=== PATIENT | male | born 1945 | race Caucasian/White ===

== ENCOUNTER 2020-05-30 18:22 | Emergency (ER) | payer MEDICARE, OTHER, SELFPAY ==
--- NOTE | 2020-05-30 | CT_ITS ---
EXAMINATION: CT ABDOMEN AND PELVIS WITHOUT CONTRAST CLINICAL INFORMATION: Right flank pain and hematuria, recent ureteral stent. COMPARISON: CT abdomen and pelvis 05/23/2020 and 04/20/2019. TECHNIQUE: Multidetector volumetric imaging was performed from the superior aspect of the liver through the pubic symphysis. Sagittal and coronal reformatted images were obtained on the technologist's workstation. This CT examination was performed using dose optimization techniques as appropriate, variously including the following: *Automated exposure control. *Adjustment of mA and/or kV according to patient size (this includes techniques or standardized protocols for targeted exams where dose is matched to indication/reason for exam; i.e. extremities or head). *Use of iterative reconstruction technique. DLP: 864 mGy-cm FINDINGS: LUNG BASES: Again seen is a small right pleural effusion unchanged when compared to 05/23/2020. Minimal bibasilar atelectasis is seen. LIVER, GALLBLADDER, AND BILIARY TREE: The liver is normal in size, shape, and attenuation. No focal hepatic lesion or biliary ductal dilatation is present. Again seen are multiple gallstones. There is a single calcification seen in what appears to be a right hepatic duct. However, on the March 2019 CT scan, this is seen adjacent to the hepatic artery and, therefore, could represent some atherosclerotic calcification. PANCREAS: Unremarkable. SPLEEN: Unremarkable. ADRENAL GLANDS: Unremarkable. KIDNEYS AND URETERS: Right: An internally dwelling double-J ureteral stent is present in the right some small intrarenal calcifications are seen at the superior aspect of the stent (series 3 image 29). The obstructing proximal ureteral stone is no longer present and the hydronephrosis has resolved. Left: Nonobstructing left intrarenal calculus is present measuring 9 x 5 mm. No other calculi are seen. No hydronephrosis or renal masses are detected. BLADDER: Unremarkable. GASTROINTESTINAL TRACT: Diverticular changes are present in the left colon without evidence of diverticulitis. The small and large bowel are unremarkable. The appendix is unremarkable. ABDOMINAL WALL: A left inguinal hernia is present containing only fat. LYMPH NODES: No retroperitoneal lymphadenopathy. VASCULAR: Calcific atherosclerotic changes present in the aorta and iliofemoral vessels. PELVIC VISCERA: Again noted are postsurgical changes in the prostate bed with iliac and pelvic side-wall surgical clips. OSSEOUS STRUCTURES: Unremarkable. IMPRESSION: 1. Patient has right internally dwelling stent status post stone removal. Hydronephrosis has resolved. Some small residual intrarenal calcifications present on the right. 2. Nonobstructing left intrarenal calculi. 3. Incidental note made of cholelithiasis, colonic diverticulosis and postsurgical changes in prostate bed.
--- NOTE | 2020-05-30 | US_ITS ---
EXAMINATION: US LOWER EXTREMITY VENOUS, LEFT CLINICAL INFORMATION: Edema COMPARISON: None. TECHNIQUE: Doppler spectral analysis and color flow Doppler imaging was performed of the left lower extremity. Compression and augmentation maneuvers were performed. FINDINGS: Lower extremity venous ultrasound demonstrates no evidence of DVT. The common femoral, femoral, popliteal and calf veins were well identified and normal. They demonstrate normal compressibility and color fill-in. There is edema in the subcutaneous tissues of the calf. IMPRESSION: No evidence for a lower extremity deep vein thrombosis.
[2020-05-30 18:40] VITALS: BP 132/63; PULSE 60; RESP 18; TEMP 36.4; BMI 68.0
--- NOTE | 2020-05-30 19:00 | PC.NURSE ---
PATIENT JUST ADMITTED TO ER, HERE DO TO BLOOD IN HIS URINE FOLLOWING A STENT PLACEMENT. TOOK OVER CARE FROM MICHEL Baird RN. HE IS CURRENTLY AT [facility]
[2020-05-30 19:17] VITALS: BP 132/63; PULSE 59; RESP 15; O2SAT 98
--- NOTE | 2020-05-30 19:20 | ED.MALEGU ---
HPI - Male Genitourinary General Chief complaint: Urogenital-Male Stated complaint: blood in urine Time Seen by Provider: 05/30/20 18:27 Source: patient Mode of arrival: ambulatory History of Present Illness HPI Narrative: patient with 2 complaints. Patient states has been noticing blood in urine for the past several days. No fevers or chills. No flank pain. However states this week did have a urinary stent placed for previous kidney stone. No fevers no chills no nausea no vomiting. Patient also had a left leg that is swollen patient has gone to cardiology and infectious disease however Did get an ultrasound that was negative but it continues to swell. No shortness of breath no chest pain. No fevers or chills. States he is supposed to be on Lasix however stop taking it Onset (ago): day(s) Severity: mild Severity scale (1-10): 4 Related Data Home Medications Medication Instructions Recorded Confirmed amiodarone 200 mg PO BID 05/30/20 05/30/20 atorvastatin 1 tab PO DAILY 05/30/20 05/30/20 carvedilol 12.5 mg PO BID 05/30/20 05/30/20 furosemide 1 tab PO DAILY 05/30/20 05/30/20 gabapentin 300 mg PO BEDTIME 05/30/20 05/30/20 melatonin 10 mg PO BEDTIME PRN 05/30/20 05/30/20 rivaroxaban [Xarelto] 1 tab PO DAILY 05/30/20 05/30/20 Allergies Allergy/AdvReac Type Severity Reaction Status Date / Time lisinopril [LISINOPRIL] Allergy Severe SWELLING/EDEMA,MASSIVE, Verified 05/30/20 22:44 facial edema Review of Systems Review of Systems: Constitutional : No Weight loss, No Fever, No Chills, No Night Sweats, No Fatigue, No Malaise ENT/Mouth : No Hearing loss, No Ear Pain, No Nasal Congestion, No Sinus Pain, No Hoarseness, No sore throat, No Rhinorrhea, No Swallowing Difficulty Eyes: No Eye Pain, No Swelling, No Redness, No Foreign Body, No Discharge, No Vision Changes Cardiovascular : No Chest Pain, No SOB, No Dyspnea on Exertion, No Orthopnea, positive leg Edema, No Palpitations Respiratory : No Cough, No Sputum, No Wheezing, No Smoke Exposure, No Dyspnea Gastrointestinal : No Nausea, No Vomiting, No Diarrhea, No Constipation, No abdominal Pain, No Hematochezia, No Melena Genitourinary : no irregular bleeding, No Dysuria, No Urinary Frequency, No Hematuria, No Urinary Incontinence, No Urgency, No Flank Pain, No Urinary Flow Changes, No Hesitancy Musculoskeletal : No joint pain, No Myalgias, right flank tenderness Skin : No Skin Lesions, No rash Neuro : No Weakness, No Numbness, No Paresthesias, No Loss of Consciousness, No Dizziness, No Headache Psych : No Anxiety/Panic, No Depression, No SI/HI/AH/VH, No Social Issues, Heme/Lymph: No Bruising, No Bleeding,No Lymphadenopathy Endocrine : No Polyuria, No Polydipsia, No Temperature Intolerance [facility] Past Medical History Attestation statement: The following information was validated with the patient. Medical History (Updated 05/31/20 @ 00:00 by Erma Hanley) Cataract CHF (congestive heart failure) Kidney stone Restless legs syndrome Sleep apnea Social History Social History Alcohol intake: never Smoking Status: Unknown if ever smoked Smoked in Last 30 Days: No Use of substances other than those prescribed or required for medical reasons: No Advance Directives: No Advance Directives Information Provided: Yes Physical Exam Vital Signs and I&O and Narrative: Vital Signs and I&O: Vital Signs Temp 97.6 F 05/30/20 18:40 Pulse 52 05/30/20 20:59 Resp 15 05/30/20 20:59 BP 145/76 H 05/30/20 20:59 Pulse Ox 96 05/30/20 20:59 Intake & Output 05/30/20 05/30/20 05/31/20 06:59 18:59 06:59 Weight 203 kg Body Mass Index 68.0 reviewed Const: Other: Appearance: Alert. Oriented X3. No acute distress. Eyes: Pupils equal, round and reactive to light. ENT: Pharynx normal. Neck: Normal inspection. Neck supple. CVS: Normal heart rate and rhythm. Pulses normal. Respiratory: No respiratory distress. Breath sounds normal. Abdomen: Soft and nontender. Skin: Skin warm and dry. Normal skin color. Normal skin turgor. Extremities: bilateral lower extremity edema with left greater than right. Pitting edema. No erythema. No warmth. No laceration Neuro: Oriented X 3. No motor deficit. No sensory deficit. General: cooperative MDM - Male Genitourinary MDM Narrative Medical decision making narrative: 74-year-old male with postsurgical hematuria. CT scan shows no blockages labs and urine show no infection. Patient does have a urology appointment in 3 days advised him to return. Also and bilateral leg edema left greater than right however patient shows no signs of DVT. I discussed with patient in regards to increase his Lasix at home next couple days and follow-up primary care Medical Records Attestation: I reviewed the patient's medical records. Lab Data Attestation: I reviewed the patient's lab results. Result diagrams: 05/30/20 19:33 05/30/20 19:33 Labs: Lab Results 05/30/20 05/30/20 05/30/20 Range/Units 19:33 19:33 19:33 WBC 8.0 (4.8-10.8) X10*3/uL RBC 4.11 L (4.60-5.80) X10*6/uL Hgb 10.8 L (14.0-18.0) g/dl Hct 33.9 L (42-52) % MCV 82.5 (80-98) fL MCH 26.3 L (27.0-33.0) pg MCHC 31.9 (31.0-36.0) g/dl RDW 16.3 H (11.0-16.0) % Plt Count 186 (160-400) X10*3/uL MPV 10.3 (9.4-12.4) fL Immature Gran % (Auto) 1.1 H (0.0-0.4) % Neut % (Auto) 73.3 H (45-73) % Lymph % (Auto) 9.8 L (20-40) % [place] % (Auto) 11.8 H (2-11) % Eos % (Auto) 3.5 (0-4) % Baso % (Auto) 0.5 (0-2) % Neut # (Auto) 5.8 (2.0-8.3) X10*3/uL Lymph # (Auto) 0.8 L (1.2-4.9) X10*3/uL [place] # (Auto) 0.9 (0.1-1.2) X10*3/uL Eos # (Auto) 0.3 (0.0-0.4) X10*3/uL Baso # (Auto) 0.0 (0.0-0.2) X10*3/uL Abs Immat Gran (auto) 0.09 H (0.00-0.03) X10*3/uL Absolute Nucleated RBC 0.000 (0.0-0.012) X10*3/uL Nucleated RBC % (auto) 0.0 (0.0-0.2) /100WBC Hold Blue Top SEE NOTE Sodium (135-145) mmol/L Potassium (3.3-5.1) mmol/l Chloride (96-108) mmol/L Carbon Dioxide (22-29) mmol/L Anion Gap (12-20) BUN (9-16) mg/dL Creatinine (0.5-1.4) mg/dL Estim Creat Clear Calc Estimated GFR Random Glucose (60-115) mg/dL Calcium (8.4-10.2) mg/dL Urine Color BROWN Urine Appearance CLOUDY Urine pH 5.5 (5.0-8.0) Ur Specific [place] 1.020 (1.005-1.025) Urine Protein 2+ H (NEG-TRACE) MG/DL Urine Glucose (UA) NEG (NEG) MG/DL Urine Ketones NEG (NEG) MG/DL Urine Blood 3+ H (NEG) Urine Nitrite NEG (NEG) Ur Leukocyte Esterase TRACE H (NEG) Urine RBC 76-150 H (0) /HPF Urine WBC 5-9 H (0-4) /HPF Ur Squamous Epith Cells NONE /LPF Urine Bacteria TRACE /LPF 05/30/20 Range/Units 19:33 WBC (4.8-10.8) X10*3/uL RBC (4.60-5.80) X10*6/uL Hgb (14.0-18.0) g/dl Hct (42-52) % MCV (80-98) fL MCH (27.0-33.0) pg MCHC (31.0-36.0) g/dl RDW (11.0-16.0) % Plt Count (160-400) X10*3/uL MPV (9.4-12.4) fL Immature Gran % (Auto) (0.0-0.4) % Neut % (Auto) (45-73) % Lymph % (Auto) (20-40) % [place] % (Auto) (2-11) % Eos % (Auto) (0-4) % Baso % (Auto) (0-2) % Neut # (Auto) (2.0-8.3) X10*3/uL Lymph # (Auto) (1.2-4.9) X10*3/uL [place] # (Auto) (0.1-1.2) X10*3/uL Eos # (Auto) (0.0-0.4) X10*3/uL Baso # (Auto) (0.0-0.2) X10*3/uL Abs Immat Gran (auto) (0.00-0.03) X10*3/uL Absolute Nucleated RBC (0.0-0.012) X10*3/uL Nucleated RBC % (auto) (0.0-0.2) /100WBC Hold Blue Top Sodium 140 (135-145) mmol/L Potassium 4.1 (3.3-5.1) mmol/l Chloride 111 H (96-108) mmol/L Carbon Dioxide 23 (22-29) mmol/L Anion Gap 10 L (12-20) BUN 25 H (9-16) mg/dL Creatinine 1.00 (0.5-1.4) mg/dL Estim Creat Clear Calc 112.0 Estimated GFR > 60 Random Glucose 159 H (60-115) mg/dL Calcium 8.3 L (8.4-10.2) mg/dL Urine Color Urine Appearance Urine pH (5.0-8.0) Ur Specific [place] (1.005-1.025) Urine Protein (NEG-TRACE) MG/DL Urine Glucose (UA) (NEG) MG/DL Urine Ketones (NEG) MG/DL Urine Blood (NEG) Urine Nitrite (NEG) Ur Leukocyte Esterase (NEG) Urine RBC (0) /HPF Urine WBC (0-4) /HPF Ur Squamous Epith Cells /LPF Urine Bacteria /LPF Discharge Plan Discharge Clinical Impression: Hematuria, Pedal edema Patient Disposition: Home, Self-Care Instructions: Hematuria (ED), Leg Edema (ED) Additional Instructions: Thank you for visiting the emergency department today. If your symptoms worsen or do not resolve completely please return to the emergency department immediately or call 911. if he have any questions please call your primary care physician increase your Lasix pill, and take 2 tablets every day for 3-5 days and follow up with her primary care doctor for further instructions Prescriptions: No Action furosemide 40 mg tablet 1 tab PO DAILY RF: 0 atorvastatin 80 mg tablet 1 tab PO DAILY RF: 0 carvedilol 12.5 mg Tablet 12.5 mg PO BID RF: 0 amiodarone 200 mg Tablet 200 mg PO BID RF: 0 gabapentin 300 mg Tablet 300 mg PO BEDTIME RF: 0 Xarelto 20 mg tablet 1 tab PO DAILY RF: 0 melatonin 10 mg Tablet 10 mg PO BEDTIME PRN (Reason: Insomnia) RF: 0 Referrals: [facility] [Provider Group] - 2 days Interventions: ED Discharge Assessment Last Done: 05/30/20 23:49 Discharge Date/Time: 05/30/20 23:57
[2020-05-30 19:40] LABS: MANUAL DIFF FLAG NO
[2020-05-30 19:45] LABS: Basophils Percent Auto 0.5 % (0-2); Eosinophils Absolute Auto 0.3 X10*3/uL (0.0-0.4); Eosinophils Percent Auto 3.5 % (0-4); Glucose Urine UA NEG (NEG); Hematocrit 33.9 % (42-52); Hemoglobin 10.8 g/dl (14.0-18.0); Imm Gran Abs Auto 0.09 X10*3/uL (0.00-0.03); Imm Gran Pct Auto 1.1 % (0.0-0.4); Leukocyte Esterase Urine TRACE (NEG); Lymphocytes Absolute Auto 0.8 X10*3/uL (1.2-4.9); Lymphocytes Percent Auto 9.8 % (20-40); Mean Corpuscular HGB Conc 31.9 g/dl (31.0-36.0); Mean Corpuscular Hemoglobin 26.3 pg (27.0-33.0); Mean Corpuscular Volume 82.5 fL (80-98); Mean Platelet Volume 10.3 fL (9.4-12.4); Monocytes Absolute Auto 0.9 X10*3/uL (0.1-1.2); Monocytes Percent Auto 11.8 % (2-11); Neutrophils Absolute Auto 5.8 X10*3/uL (2.0-8.3); Neutrophils Percent Auto 73.3 % (45-73); Nitrite Urine NEG (NEG); PH 5.5 (5.0-8.0); Platelet Count 186 X10*3/uL (160-400); Red Blood Count 4.11 X10*6/uL (4.60-5.80); Red Cell Distribution Width 16.3 % (11.0-16.0); Urine Blood 3+ (NEG); Urine Ketones NEG (NEG); Urine Protein 2+ MG/DL (NEG-TRACE)
[2020-05-30 19:46] LABS: Appearance Urine CLOUDY; Color Urine BROWN
[2020-05-30 20:02] LABS: Bacteria Urine TRACE /LPF
[2020-05-30 20:14] LABS: Anion Gap 10 (12-20); Blood Urea Nitrogen 25 mg/dL (9-16); Calcium 8.3 mg/dL (8.4-10.2); Carbon Dioxide 23 mmol/L (22-29); Chloride 111 mmol/L (96-108); Estimated Glomerular Filt Rate > 60; Glucose Random 159 mg/dL (60-115); Potassium 4.1 mmol/l (3.3-5.1); Sodium 140 mmol/L (135-145)
[2020-05-30 20:59] VITALS: BP 145/76; PULSE 52; RESP 15; O2SAT 96
== END 2020-05-30 23:57 | disposition home or self-care (01) ==
PROVIDERS: Emergency Provider Emergency Medicine
DX: R31.9 Hematuria, unspecified (principal); R60.0 Localized edema; T50.1X6A Underdosing of loop [high-ceiling] diuretics, initial encounter; Y92.019 Unspecified place in single-family (private) house as the place of occurrence of the external cause; I50.9 Heart failure, unspecified
CPT/HCPCS: 36415; 74176; 80048; 81001; 85025; 87086; 93971; 99284

== ENCOUNTER → 2020-06-03 09:51 | Outpatient (BNVA) | payer MEDICARE, OTHER, SELFPAY | PROVIDERS: PCP Internal Medicine; Visit Provider Urology | DX: Z48.816 Encounter for surgical aftercare following surgery on the genitourinary system (principal); E83.59 Other disorders of calcium metabolism; Z87.442 Personal history of urinary calculi | CPT/HCPCS: 52310; 99213 ==

== ENCOUNTER 2020-07-01 11:25 | Emergency (ER) | payer MEDICARE, OTHER, SELFPAY ==
[2020-07-01 11:28] VITALS: BP 129/61; PULSE 63; RESP 16; TEMP 36.6; O2SAT 99; BMI 29.9
--- NOTE | 2020-07-01 12:05 | ED.SKABFB ---
HPI - Skin/Abscess/Foreign Bdy General Chief complaint: Skin/Abscess/Foreign Body Stated complaint: Rash Time Seen by Provider: 07/01/20 12:05 Source: patient Mode of arrival: ambulatory Limitations: no limitations History of Present Illness HPI narrative: LE edema and swelling is chronic has rash that is burning and itching in nature - was scratching it and now notes that his LLE is more red and warm to touch has never been on antibiotics for this MD complaint: rash and discoloration Onset (ago): week(s) (1) Location: LLE Severity: mild Quality: burning and pruritic Pain Consistency: constant Relieving factors: none Exacerbating factors: none Context: other (prior history of edema and suspected leg dermatitis on lasix, has seen PCP, nuclear medical tech, vascular doctor for this) Associated symptoms: denies other symptoms Treatments prior to arrival: none Related Data Home Medications Medication Instructions Recorded Confirmed amiodarone 200 mg PO BID 05/30/20 05/30/20 atorvastatin 1 tab PO DAILY 05/30/20 05/30/20 carvedilol 12.5 mg PO BID 05/30/20 05/30/20 furosemide 1 tab PO DAILY 05/30/20 05/30/20 gabapentin 300 mg PO BEDTIME 05/30/20 05/30/20 melatonin 10 mg PO BEDTIME PRN 05/30/20 05/30/20 rivaroxaban [Xarelto] 1 tab PO DAILY 05/30/20 05/30/20 tramadol 50 mg tablet 50 mg PO Q6H PRN 06/03/20 Previous Rx's Medication Instructions Recorded cephalexin 500 mg PO TID 7 Days #21 cap 07/01/20 Allergies Allergy/AdvReac Type Severity Reaction Status Date / Time lisinopril [LISINOPRIL] Allergy Severe SWELLING/EDEMA,MASSIVE, Verified 05/30/20 22:44 facial edema Review of Systems Review of Systems: Constitutional : No Fever, No Chills ENT/Mouth : No sore throat, No Rhinorrhea Eyes: No Eye Pain, No Swelling, No Redness Cardiovascular : No Chest Pain, No SOB Respiratory : No Cough, No Sputum Gastrointestinal : No Nausea, No Vomiting, No Diarrhea, No abdominal Pain Genitourinary : No Dysuria, No Hematuria Musculoskeletal : No joint pain, No Myalgias, No Joint Swelling Skin : pos Skin Lesions, positive skin rash Neuro : No Weakness, No Numbness, No Headache Psych : No Anxiety, No Depression Heme/Lymph: No Bruising, No Bleeding,No Lymphadenopathy Endocrine : No Polyuria, No Polydipsia All other systems reviewed and are negative [facility] Past Medical History Attestation statement: The following information was validated with the patient. Medical History (Updated 07/01/20 @ 13:15 by Candis Lazar DO) Afib CAD (coronary artery disease) Cataract CHF (congestive heart failure) Kidney stone Restless legs syndrome Sleep apnea Surgical History (Updated 07/01/20 @ 12:16 by Candis Lazar DO) Hx of CABG Social History Social History (Updated 07/01/20 @ 12:16 by Candis Lazar DO) Alcohol intake: never Smoking Status: Former smoker Use of substances other than those prescribed or required for medical reasons: No Advance Directives: No Advance Directives Information Provided: No Physical Exam Vital Signs: Vital Signs: Vital Signs Temp Pulse Resp BP Pulse Ox 07/01/20 11:28 97.8 F 63 16 129/61 99 Body Mass Index 29.9 Appearance: Alert. Oriented X3. No acute distress. Eyes: Pupils equal, round and reactive to light. ENT: Pharynx normal. Neck: Normal inspection. Neck supple. CVS: irregular heart rate and rhythm. Pulses normal. Respiratory: No respiratory distress. Breath sounds normal. Abdomen: Soft and nontender. Skin: Skin warm and dry. Normal skin color. Normal skin turgor. Extremities: pos 1 to 2+ pitting lower extremity edema. shiny mild erythema/no warmth to anterior shetty RLE, LLE excoriated abrasions posterior calf no fluctuance - no drainage, mild erythema around leg with mild warmth no extension or lymphangitis, no sig ttp Neuro: Oriented X 3. No motor deficit. No sensory deficit. Course Course Course Narrative: afebrile, labs stable, no WBC count can be DC home with oral antibiotics on xarelto no c/o bleeding will refer to PCP for elevated INR MDM - Skin/Abscess/Foreign Bdy MDM Narrative Medical decision making narrative: 74 yo male with CHF, CAD s/p CABG, afib on eliquis, chronic LE edema - here with likely chronic venous stasis dermatitis now with mild secondary cellulitis of LLE with systemic symptoms or sign of abscess at this time will obtain basic labs, cultures, give IV zosyn and anticipate referral to wound care center if labs wnl. Lab Data Result diagrams: 07/01/20 12:21 07/01/20 12:21 Labs: Lab Results 07/01/20 07/01/20 07/01/20 Range/Units 12:21 12:21 12:21 WBC 5.9 (4.8-10.8) X10*3/uL RBC 4.66 (4.60-5.80) X10*6/uL Hgb 11.3 L (14.0-18.0) g/dl Hct 36.8 L (42-52) % MCV 79.0 L (80-98) fL MCH 24.2 L (27.0-33.0) pg MCHC 30.7 L (31.0-36.0) g/dl RDW 16.0 (11.0-16.0) % Plt Count 220 (160-400) X10*3/uL MPV 10.5 (9.4-12.4) fL Immature Gran % (Auto) 0.3 (0.0-0.4) % Neut % (Auto) 72.8 (45-73) % Lymph % (Auto) 9.7 L (20-40) % [place] % (Auto) 13.4 H (2-11) % Eos % (Auto) 2.9 (0-4) % Baso % (Auto) 0.9 (0-2) % Lymph # (Auto) 0.6 L (1.2-4.9) X10*3/uL [place] # (Auto) 0.8 (0.1-1.2) X10*3/uL Eos # (Auto) 0.2 (0.0-0.4) X10*3/uL Baso # (Auto) 0.1 (0.0-0.2) X10*3/uL Abs Immat Gran (auto) 0.02 (0.00-0.03) X10*3/uL Absolute Neuts (auto) 4.3 (2.0-8.3) X10*3/uL Absolute Nucleated RBC 0.000 (0.0-0.012) X10*3/uL Nucleated RBC % (auto) 0.0 (0.0-0.2) /100WBC Smear Tech's Comments VERIFIED PT 68.8 H (10.8-13.0) SEC INR 5.7 H* (0.9-1.1) APTT 52.6 H (24.1-38.0) SEC Sodium 138 (135-145) mmol/L Potassium 4.0 (3.3-5.1) mmol/l Chloride 104 (96-108) mmol/L Carbon Dioxide 26 (22-29) mmol/L Anion Gap 12 (12-20) BUN 23 H (9-16) mg/dL Creatinine 1.04 (0.5-1.4) mg/dL Estim Creat Clear Calc 65.5 Estimated GFR > 60 Random Glucose 122 H (60-115) mg/dL Lactic Acid (0.5-2.0) mmol/L Calcium 8.4 (8.4-10.2) mg/dL Magnesium 2.2 (1.6-2.6) mg/dL Total Bilirubin 2.2 H (0.0-1.0) mg/dL Direct Bilirubin 1.1 H (0.0-0.5) mg/dL AST 28 (5-37) U/L ALT 23 (0-40) U/L Alkaline Phosphatase 245 H (39-117) U/L Total Protein 6.2 L (6.5-8.0) g/dL Albumin 3.9 (3.5-5.0) g/dL 07/01/20 Range/Units 12:21 WBC (4.8-10.8) X10*3/uL RBC (4.60-5.80) X10*6/uL Hgb (14.0-18.0) g/dl Hct (42-52) % MCV (80-98) fL MCH (27.0-33.0) pg MCHC (31.0-36.0) g/dl RDW (11.0-16.0) % Plt Count (160-400) X10*3/uL MPV (9.4-12.4) fL Immature Gran % (Auto) (0.0-0.4) % Neut % (Auto) (45-73) % Lymph % (Auto) (20-40) % [place] % (Auto) (2-11) % Eos % (Auto) (0-4) % Baso % (Auto) (0-2) % Lymph # (Auto) (1.2-4.9) X10*3/uL [place] # (Auto) (0.1-1.2) X10*3/uL Eos # (Auto) (0.0-0.4) X10*3/uL Baso # (Auto) (0.0-0.2) X10*3/uL Abs Immat Gran (auto) (0.00-0.03) X10*3/uL Absolute Neuts (auto) (2.0-8.3) X10*3/uL Absolute Nucleated RBC (0.0-0.012) X10*3/uL Nucleated RBC % (auto) (0.0-0.2) /100WBC Smear Tech's Comments PT (10.8-13.0) SEC INR (0.9-1.1) APTT (24.1-38.0) SEC Sodium (135-145) mmol/L Potassium (3.3-5.1) mmol/l Chloride (96-108) mmol/L Carbon Dioxide (22-29) mmol/L Anion Gap (12-20) BUN (9-16) mg/dL Creatinine (0.5-1.4) mg/dL Estim Creat Clear Calc Estimated GFR Random Glucose (60-115) mg/dL Lactic Acid 1.0 (0.5-2.0) mmol/L Calcium (8.4-10.2) mg/dL Magnesium (1.6-2.6) mg/dL Total Bilirubin (0.0-1.0) mg/dL Direct Bilirubin (0.0-0.5) mg/dL AST (5-37) U/L ALT (0-40) U/L Alkaline Phosphatase (39-117) U/L Total Protein (6.5-8.0) g/dL Albumin (3.5-5.0) g/dL Discharge Plan Discharge Clinical Impression: Cellulitis Qualifiers: Site of cellulitis: extremity Site of cellulitis of extremity: lower extremity Laterality: left Qualified Code(s): L03.116 - Cellulitis of left lower limb Venous stasis dermatitis Qualifiers: Laterality: bilateral Qualified Code(s): I87.2 - Venous insufficiency (chronic) (peripheral) Patient Disposition: Home, Self-Care Instructions: Cellulitis (ED), Stasis Dermatitis (ED) Additional Instructions: .EDdc YOUR INR IS ELEVATED LIKELY DUE TO XARELTO YOUR DOCTOR SHOULD MONITOR THIS IT IS HIGHER THAN YOUR BASELINE IT IS 5 TODAY Prescriptions: New cephalexin 500 mg capsule 500 mg PO TID 7 Days Qty: 21 RF: 0 No Action furosemide 40 mg tablet 1 tab PO DAILY RF: 0 atorvastatin 80 mg tablet 1 tab PO DAILY RF: 0 carvedilol 12.5 mg Tablet 12.5 mg PO BID RF: 0 amiodarone 200 mg Tablet 200 mg PO BID RF: 0 gabapentin 300 mg Tablet 300 mg PO BEDTIME RF: 0 Xarelto 20 mg tablet 1 tab PO DAILY RF: 0 melatonin 10 mg Tablet 10 mg PO BEDTIME PRN (Reason: Insomnia) RF: 0 Referrals: Jeb Anthony MD [Physician] - 2 days ([facility]) Naveen Mcconnell [Primary Care Provider] - 2 days
[2020-07-01 12:35] LABS: Basophils Absolute Auto 0.1 X10*3/uL (0.0-0.2); Basophils Percent Auto 0.9 % (0-2); Eosinophils Absolute Auto 0.2 X10*3/uL (0.0-0.4); Eosinophils Percent Auto 2.9 % (0-4); Hematocrit 36.8 % (42-52); Hemoglobin 11.3 g/dl (14.0-18.0); Imm Gran Abs Auto 0.02 X10*3/uL (0.00-0.03); Imm Gran Pct Auto 0.3 % (0.0-0.4); Lymphocytes Absolute Auto 0.6 X10*3/uL (1.2-4.9); Lymphocytes Percent Auto 9.7 % (20-40); MANUAL DIFF FLAG SCAN; Mean Corpuscular HGB Conc 30.7 g/dl (31.0-36.0); Mean Corpuscular Hemoglobin 24.2 pg (27.0-33.0); Mean Platelet Volume 10.5 fL (9.4-12.4); Monocytes Absolute Auto 0.8 X10*3/uL (0.1-1.2); Monocytes Percent Auto 13.4 % (2-11); Neutrophils Absolute Auto 4.3 X10*3/uL (2.0-8.3); Neutrophils Percent Auto 72.8 % (45-73); Platelet Count 220 X10*3/uL (160-400); Red Blood Count 4.66 X10*6/uL (4.60-5.80); SCAN SMEAR FLAG 1; White Blood Count 5.9 X10*3/uL (4.8-10.8)
[2020-07-01] MEDS: Piperacillin Sodium/Tazobactam 3.375 GM in 0.9 % Sodium Chloride 50 ML IV (12:38)
[2020-07-01 12:46] LABS: Partial Thromboplastin Time 52.6 SEC (24.1-38.0)
[2020-07-01 12:50] LABS: Prothrombin Time 68.8 SEC (10.8-13.0)
[2020-07-01 13:01] LABS: SLIDE REVIEW VERIFIED
[2020-07-01 13:08] LABS: Alanine Aminotransferase 23 U/L (0-40); Albumin Level 3.9 g/dL (3.5-5.0); Alkaline Phosphatase 245 U/L (39-117); Anion Gap 12 (12-20); Aspartate Amino Transferase 28 U/L (5-37); Bilirubin Direct 1.1 mg/dL (0.0-0.5); Bilirubin Total 2.2 mg/dL (0.0-1.0); Blood Urea Nitrogen 23 mg/dL (9-16); Calcium 8.4 mg/dL (8.4-10.2); Carbon Dioxide 26 mmol/L (22-29); Chloride 104 mmol/L (96-108); Creatinine Clr Calc Pharmacy 65.5; Estimated Glomerular Filt Rate > 60; Glucose Random 122 mg/dL (60-115); INTERNATIONAL NORM RATIO 5.7 (0.9-1.1); Magnesium 2.2 mg/dL (1.6-2.6); Sodium 138 mmol/L (135-145); Total Protein 6.2 g/dL (6.5-8.0)
== END 2020-07-01 13:27 | disposition home or self-care (01) ==
PROVIDERS: Emergency Provider Emergency Medicine; PCP Internal Medicine
DX: L03.116 Cellulitis of left lower limb (principal); R60.0 Localized edema; I87.2 Venous insufficiency (chronic) (peripheral); R21 Rash and other nonspecific skin eruption; I25.10 Atherosclerotic heart disease of native coronary artery without angina pectoris; I48.91 Unspecified atrial fibrillation; Z79.899 Other long term (current) drug therapy; Z79.01 Long term (current) use of anticoagulants
CPT/HCPCS: 36415; 80048; 80076; 83605; 83735; 85025; 85610; 85730; 87040; 96365; 99284; J2543

== ENCOUNTER 2020-07-03 08:00 | Outpatient (RCR) | payer MEDICARE, OTHER, SELFPAY | END 2020-08-27 15:02 | disposition home or self-care (01) | LOC: HO.WCC 08:00 | PROVIDERS: Visit Provider Surgery | DX: I83.222 Varicose veins of left lower extremity with both ulcer of calf and inflammation (principal); I70.242 Atherosclerosis of native arteries of left leg with ulceration of calf; L97.222 Non-pressure chronic ulcer of left calf with fat layer exposed; I50.9 Heart failure, unspecified; I25.10 Atherosclerotic heart disease of native coronary artery without angina pectoris; L30.8 Other specified dermatitis; Z95.1 Presence of aortocoronary bypass graft | CPT/HCPCS: 11042; 11104; 29580; 88305; 88312; 99203; 99212; 99213 ==

== ENCOUNTER → 2020-07-07 13:39 | Outpatient (BNVA) | payer MEDICARE, OTHER, SELFPAY | PROVIDERS: PCP Internal Medicine; Visit Provider Internal Medicine | DX: I25.10 Atherosclerotic heart disease of native coronary artery without angina pectoris (principal); I25.5 Ischemic cardiomyopathy; I50.22 Chronic systolic (congestive) heart failure; I48.0 Paroxysmal atrial fibrillation; I48.3 Typical atrial flutter; R00.1 Bradycardia, unspecified; G47.33 Obstructive sleep apnea (adult) (pediatric); Z79.01 Long term (current) use of anticoagulants; Z79.899 Other long term (current) drug therapy | CPT/HCPCS: 93005; 99212 ==

== ENCOUNTER 2020-07-20 11:21 | Outpatient (REF) | payer MEDICARE, OTHER, SELFPAY ==
[2020-07-20 12:46] LABS: Anion Gap 11 (12-20); Blood Urea Nitrogen 20 mg/dL (9-16); Calcium 8.9 mg/dL (8.4-10.2); Carbon Dioxide 26 mmol/L (22-29); Chloride 106 mmol/L (96-108); Estimated Glomerular Filt Rate > 60; Glucose Random 125 mg/dL (60-115); Potassium 4.2 mmol/l (3.3-5.1); Sodium 139 mmol/L (135-145)
[2020-07-20 13:26] LABS: B Type Natriuretic Peptide 923 pg/mL (<100)
== END 2020-07-20 11:22 | disposition home or self-care (01) ==
LOC: HO.LAB 11:21
PROVIDERS: PCP Internal Medicine; Visit Provider Internal Medicine
DX: I50.22 Chronic systolic (congestive) heart failure (principal); I25.5 Ischemic cardiomyopathy
CPT/HCPCS: 80048; 83880

== ENCOUNTER 2020-08-05 09:44 | Outpatient (REF) | payer MEDICARE, OTHER, SELFPAY ==
--- NOTE | 2020-08-05 | US_ITS ---
EXAMINATION: COLOR-FLOW DUPLEX IMAGING OF THE LEFT LOWER EXTREMITY ARTERIAL SYSTEM. VELOCITY MEASUREMENTS THROUGHOUT THE LEFT FEMORAL ARTERIES Interventional Radiologist: Sanjay Saavedra M.D., F.S.I.R., F.A.C.R. CLINICAL INFORMATION: This is a 74-year-old male former smoker. Peripheral arterial disease. Chronic ulcer of left calf. LEFT FEMORAL RUNOFF VELOCITIES: The left common femoral artery measures 89 cm/s and biphasic. The right profunda femoral artery is 62 cm/s and is biphasic. Right proximal superficial femoral artery measures 86 cm/s and triphasic. Mid superficial femoral artery is 61 cm/s and biphasic. Distal right superficial femoral artery measures 68 cm/s and is triphasic. Right popliteal velocity measures 63 cm/s and is biphasic. The posterior tibial artery velocity measures 88 cm/s and was triphasic. Mild scattered atherosclerotic plaque is seen throughout the arteries without evidence of hemodynamically significant stenosis. There is a simple, anechoic fluid collection seen medial to the patella anteriorly. There is also subcutaneous edema in the calf. The etiology for the fluid that is medial to the patella is unclear. This could be an extension from the joint space. It may be amenable to ultrasound-guided aspiration. US/US arterial duplex LE LT IMPRESSION: 1. There is no hemodynamically significant stenosis in the left lower extremity peripheral arterial testing. 2. There is a fluid collection seen medial to the patella anteriorly. The etiology for the fluid collection is unclear.
== END 2020-08-05 09:45 | disposition home or self-care (01) ==
LOC: HO.US 09:44
PROVIDERS: Visit Provider Surgery
DX: L97.222 Non-pressure chronic ulcer of left calf with fat layer exposed (principal); I73.9 Peripheral vascular disease, unspecified
CPT/HCPCS: 93926

== ENCOUNTER 2020-08-11 10:14 | Outpatient (REF) | payer MEDICARE, OTHER, SELFPAY ==
--- NOTE | 2020-08-11 11:33 | XR_ITS ---
EXAMINATION: XR CHEST CLINICAL INFORMATION: Chronic congestive heart failure COMPARISON: 01/24/2020 TECHNIQUE: Two views of the chest were obtained. FINDINGS: Cardiac silhouette is mildly enlarged, stable. Sternotomy wires present. Mediastinal clips present. Central vascular prominence, with mild interstitial prominence suggesting mild interstitial pulmonary edema. Small right pleural effusion. No focal consolidation. No pneumothorax. Thoracic spine degeneration. XR/XR chest 2V IMPRESSION: Findings suggesting mild interstitial pulmonary edema. Small right pleural effusion.
== END 2020-08-11 10:15 | disposition home or self-care (01) ==
LOC: HO.XRAY 10:14
PROVIDERS: PCP Internal Medicine; Visit Provider Internal Medicine
DX: I50.22 Chronic systolic (congestive) heart failure (principal); I25.5 Ischemic cardiomyopathy; I25.10 Atherosclerotic heart disease of native coronary artery without angina pectoris; I48.3 Typical atrial flutter; I48.0 Paroxysmal atrial fibrillation; R00.1 Bradycardia, unspecified; G47.33 Obstructive sleep apnea (adult) (pediatric)
CPT/HCPCS: 71046; 99212

== ENCOUNTER 2020-09-10 10:09 | Outpatient (REF) | payer MEDICARE, OTHER, SELFPAY ==
[2020-09-10 12:58] LABS: B Type Natriuretic Peptide 988 pg/mL (<100)
[2020-09-10 12:59] LABS: Anion Gap 15 (12-20); Blood Urea Nitrogen 30 mg/dL (9-16); Calcium 9.5 mg/dL (8.4-10.2); Carbon Dioxide 30 mmol/L (22-29); Chloride 99 mmol/L (96-108); Estimated Glomerular Filt Rate > 60; Glucose Random 143 mg/dL (60-115); Magnesium 2.2 mg/dL (1.6-2.6); Potassium 3.8 mmol/l (3.3-5.1); Sodium 140 mmol/L (135-145)
== END 2020-09-10 10:10 | disposition home or self-care (01) ==
LOC: HO.LAB 10:09
PROVIDERS: PCP Internal Medicine; Visit Provider Internal Medicine
DX: I50.22 Chronic systolic (congestive) heart failure (principal); I25.5 Ischemic cardiomyopathy; I25.10 Atherosclerotic heart disease of native coronary artery without angina pectoris; I48.3 Typical atrial flutter; I48.0 Paroxysmal atrial fibrillation; R00.1 Bradycardia, unspecified; G47.33 Obstructive sleep apnea (adult) (pediatric)
CPT/HCPCS: 36415; 80048; 83735; 83880; 99212

== ENCOUNTER 2020-09-17 11:50 | Outpatient (REF) | payer MEDICARE, OTHER, SELFPAY ==
[2020-09-17 13:50] LABS: TSH reflex Free T4 9.54 mIU/mL (0.32-4.0)
== END 2020-09-17 11:51 | disposition home or self-care (01) ==
LOC: HO.LAB 11:50
PROVIDERS: PCP Internal Medicine; Visit Provider Internal Medicine
DX: I48.0 Paroxysmal atrial fibrillation (principal)
CPT/HCPCS: 36415; 84439; 84443

== ENCOUNTER → 2020-11-03 10:14 | Outpatient (BNVA) | payer MEDICARE, OTHER, SELFPAY | PROVIDERS: PCP Internal Medicine; Visit Provider Psychiatry & Neurology Neurology | DX: Z13.89 Encounter for screening for other disorder (principal) | CPT/HCPCS: Q3014 ==

== ENCOUNTER 2020-11-30 13:22 | Emergency (ER) | payer OTHER, SELFPAY ==
[2020-11-30 14:10] VITALS: BP 138/82; PULSE 56; RESP 18; TEMP 36.6; O2SAT 96; BMI 29.6
== END 2020-11-30 16:48 | disposition left against medical advice (07) ==
LOC: HO.ED 16:48
PROVIDERS: Emergency Provider Emergency Medicine; PCP Internal Medicine
DX: M79.662 Pain in left lower leg (principal); M79.89 Other specified soft tissue disorders; S81.802A Unspecified open wound, left lower leg, initial encounter; X58.XXXA Exposure to other specified factors, initial encounter; I48.91 Unspecified atrial fibrillation; I50.9 Heart failure, unspecified; Y93.9 Activity, unspecified; Y92.9 Unspecified place or not applicable; Y99.9 Unspecified external cause status
CPT/HCPCS: 99281; 99282

== ENCOUNTER → 2020-12-25 09:21 | Outpatient (REF) | payer MEDICARE, OTHER, SELFPAY ==
--- NOTE | 2020-12-25 09:24 | CA_ITS ---
Transthoracic Echocardiogram Patient (Last, First, Middle): Leoncio Liu F Gender: Male Date of : 1945 Age: 75 Procedure Date: 12/25/2020 Procedure Type: Transthoracic Echocardiogram Location: OP Height: 170.18 cm Weight: 80.74 kg BSA: 1.92 m2 Heart Rate: bpm BP: 114 / 60 mmHg [employer]: Referring MD: Travis Rogers MD Symptoms: I50.22 - Chronic systolic (congestive) heart failure Conclusions: - 1. [id number] LV systolic dysfunction with pseudonormal filling 2. Mildly dilated left atrium 3. Mild mitral regurgitation 4. Normal RV systolic pressure 5. No pericardial effusion Findings Left Ventricle Normal left ventricular cavity size. There is normal left ventricular wall thickness. The left ventricular systolic function is mild to moderately decreased. The visually estimated ejection fraction is between 40-45%. Spectral Doppler is indicative of a pseudonormal filling pattern. Wall Motion Rest Echo Findings The apical inferior and apical septum segments are hypokinetic. The inferoseptal wall, the basal inferior, mid inferior, basal anteroseptal, and mid anteroseptal segments are akinetic. All other scored wall segments showed normal motion. Right Ventricle Normal right ventricular cavity size and systolic function. Atria The left atrium is mildly dilated. There is no evidence of interatrial shunt. The right atrium is likely dilated. Aortic Valve There is mild calcification of the aortic valve. There is moderate thickening of the aortic valve. There is no aortic valve stenosis. There is no aortic valve regurgitation. Mitral Valve There is mild anterior and posterior mitral leaflet thickening. There is mild mitral annular calcification. There is mild mitral valve regurgitation. There is no mitral valve stenosis. Pulmonic Valve The pulmonic valve was not well visualized. Tricuspid Valve Likely normal tricuspid valve structure and function. There is mild tricuspid valve regurgitation. The right ventricular systolic pressure is normal. The right ventricular systolic pressure is 38 mmHg. There is no evidence of pulmonary hypertension. Great Vessels All visible segments of the aorta are normal in size. The pulmonary artery was not well visualized. Venous The inferior vena cava is normal in size and collapses greater than 50% with inspiration. Pericardium/Pleural There is no evidence of pericardial effusion. Prior Study Comparison Changes noted compared to prior study dated: 02/05/2020. LV systolic function is improved Measurements 2D Linear Measurements RVIDd: 4.56 RVIDd Index: 2.38 IVSd: 0.90 0.6-0.9/0.6-1.0 cm LVIDd: 5.80 3.9-5.3/4.2-5.9 cm LVIDd Index: 3.02 2.4-3.2/2.2-3.1 cm/m2 LVIDs: 4.87 2.0-3.6 cm LVPWd: 0.94 0.7-1.1 cm Ao Root: 3.20 2.1-3.5 cm LA Diam: 5.20 2.7-3.8/3.0-4.0 cm LAIDs Index: 2.71 1.5-2.3 cm/m2 LV Mass: 259.96 67-162/88-224 g LV Mass Index: 135.39 43-95/49-115 g/m2 LVOT Diam: 2.00 3.0+(-)1.3 cm 2D Systolic Function EF 4C: 53.00 >55% EF 2C: 44.10 >55% EF BiP: 45.90 >55% Mitral Valve MV Pk E: 0.86 MV PK A: 0.20 MV Decel Time: 241.00 E/A: 4.30 E'Lateral: 6.96 E'Medial: 2.63 E/E' Med: 32.80 E/E' Lat: 12.40 MR Vol - PW Dopp: 25.27 MR VTI: 1.33 MR ERO: 19.00 MR Alias Thad: 0.34 MR RAD: 0.60 Aortic Valve AoV Pk Thad: 0.98 AoV Mn Thad: 0.76 AoV VTI: 0.21 AoV Pk Grad: 4.00 Aov Mn Grad: 3.00 CODY Cont.VTI: 2.42 LVOT LVOT Pk Thad: 0.77 LVOT Mn Thad: 0.49 LVOT VTI: 0.16 LVOT Pk Grad: 2.00 LVOT Mn Grad: 1.00 LVOT Diam: 2.00 LVOT Area: 3.14 Diastolic Function MV Pk E: 0.86 MV Pk A: 0.20 E/A: 4.30 E'Medial: 2.63 E/E' Med: 32.80 E' Laterial: 6.96 E/E' Lat: 12.40 Tricuspid Valve TR Pk Thad: 2.73 TR Pk Grad: 30.00 RA Press: 8.00 RVSP: 38.00 Great Vessels Aorta Ao Root-2D: 3.20 2.0-3.7 cm Ao Asc: 3.10 2.1-3.4 cm Ao Arch: 2.60 Updated in Other Vendor System with Status of Final Adonis Fuentes MD electronically signed on 12/25/2020 2:39:56 PM with status of Final
== END ==
LOC: HO.CARD 09:21
PROVIDERS: Visit Provider Internal Medicine
DX: I50.22 Chronic systolic (congestive) heart failure (principal)
CPT/HCPCS: 93306

== ENCOUNTER → 2020-12-29 10:59 | Outpatient (BNVA) | payer OTHER, SELFPAY | PROVIDERS: PCP Internal Medicine; Visit Provider Psychiatry & Neurology Neurology ==

== ENCOUNTER 2021-01-06 15:25 | Outpatient (REF) | payer MEDICARE, OTHER, SELFPAY ==
[2021-01-06 16:45] LABS: TSH reflex Free T4 1.66 uIU/mL (0.32-4.0)
== END 2021-01-06 15:26 | disposition home or self-care (01) ==
LOC: HO.LAB 15:25
PROVIDERS: PCP Internal Medicine; Visit Provider Internal Medicine
DX: I48.0 Paroxysmal atrial fibrillation (principal)
CPT/HCPCS: 36415; 84443

== ENCOUNTER 2021-01-10 11:41 | Emergency (ER) | payer OTHER, MEDICARE, SELFPAY ==
--- NOTE | ~2021-01-10 | CT_ITS ---
EXAMINATION: CT ABDOMEN AND PELVIS WITHOUT CONTRAST CLINICAL INFORMATION: 75-year-old male with left-sided flank pain. COMPARISON: CT abdomen pelvis 05/30/2020 TECHNIQUE: Multidetector volumetric imaging was performed from the superior aspect of the liver through the pubic symphysis. Sagittal and coronal reformatted images were obtained on the technologist's workstation. Today's examination is limited secondary to motion artifact. This CT examination was performed using dose optimization techniques as appropriate, variously including the following: *Automated exposure control *Adjustment of mA and/or kV according to patient size (this includes techniques or standardized protocols for targeted exams where dose is matched to indication/reason for exam; i.e. extremities or head) *Use of iterative reconstruction technique DLP: 908 mGy-cm FINDINGS: Visualized lung bases demonstrate mild dependent atelectasis. The liver demonstrates normal size, contour and attenuation. A few small gallstones are noted within an otherwise unremarkable appearing gallbladder. The spleen, pancreas and adrenal glands are unremarkable. Interval removal of right-sided ureteral stent. No right-sided renal calculi appreciated on today's imaging. Stable 1 cm left renal calculus again noted. There is no hydronephrosis of either kidney. A few small bilateral renal hypodensities are again noted, some of which demonstrate cystic characteristics and others which are too small to accurately characterize. The stomach is decompressed. Normal caliber loops of small and large bowel. Moderate colonic diverticulosis without CT evidence to suggest active diverticulitis. Nonaneurysmal abdominal aorta which demonstrates moderate atherosclerotic disease. No retroperitoneal lymphadenopathy. The bladder is normal in appearance. The prostate gland is surgically absent. Fat-containing left inguinal hernia again noted. No inguinal lymphadenopathy. Moderate diffuse degenerative changes of the spine. Bilateral L5 pars defects. CT/CT abdomen pelvis wo con IMPRESSION: 1. Interval removal of right-sided internal ureteral stent. No right-sided renal calculi noted. 2. Stable 1 cm nonobstructing left renal calculus. No left-sided hydronephrosis. 3. Cholelithiasis. 4. Colonic diverticulosis without CT evidence to suggest active diverticulitis.
--- NOTE | ~2021-01-10 | XR_ITS ---
EXAMINATION: XR CHEST CLINICAL INFORMATION: Abdominal pain COMPARISON: Chest x-ray 08/11/2020 TECHNIQUE: 2 views of the chest were obtained. FINDINGS: The cardiac silhouette is normal in size. The lungs are well aerated. No gross lobar consolidation. Interval resolution of previously present small right-sided pleural effusion. No left-sided pleural effusion. No pneumothorax. Moderate degenerative changes of the spine. XR/XR chest 2V IMPRESSION: No acute pulmonary pathology.
[2021-01-10 11:46] VITALS: BP 128/68; PULSE 70; RESP 18; TEMP 36.6; O2SAT 95; BMI 27.7
[2021-01-10 13:23] LABS: MANUAL DIFF FLAG NO
[2021-01-10 13:24] LABS: Basophils Absolute Auto 0.1 X10*3/uL (0.0-0.2); Basophils Percent Auto 0.5 % (0-2); Eosinophils Absolute Auto 0.2 X10*3/uL (0.0-0.4); Eosinophils Percent Auto 2.1 % (0-4); Hematocrit 40.9 % (42-52); Hemoglobin 12.4 g/dl (14.0-18.0); Imm Gran Abs Auto 0.05 X10*3/uL (0.00-0.03); Imm Gran Pct Auto 0.4 % (0.0-0.4); Lymphocytes Absolute Auto 0.7 X10*3/uL (1.2-4.9); Lymphocytes Percent Auto 6.1 % (20-40); Mean Corpuscular HGB Conc 30.3 g/dl (31.0-36.0); Mean Corpuscular Hemoglobin 22.1 pg (27.0-33.0); Mean Platelet Volume 9.4 fL (9.4-12.4); Monocytes Absolute Auto 1.5 X10*3/uL (0.1-1.2); Monocytes Percent Auto 12.8 % (2-11); Neutrophils Percent Auto 78.1 % (45-73); Platelet Count 216 X10*3/uL (160-400); Red Cell Distribution Width 20.7 % (11.0-16.0); White Blood Count 11.5 X10*3/uL (4.8-10.8)
[2021-01-10] MEDS: ondansetron HCL 4 MG/2 ML VIAL IVPUSH (13:24)
[2021-01-10] MEDS: 0.9 % Sodium Chloride 1,000 ML 999 ML IVCONT (13:24)
[2021-01-10] MEDS: Morphine Sulfate 4 MG/ML CARTRIDGE IVPUSH (13:24)
[2021-01-10 13:36] LABS: Prothrombin Time 60.7 SEC (10.8-13.0)
--- NOTE | 2021-01-10 13:49 | ED_ITS ---
HPI - Abdominal Pain General Chief Complaint: Urogenital-Male Stated Complaint: KIDNEY PAIN Time Seen by Provider: 01/10/21 12:58 Source: patient Mode of arrival: ambulatory Limitations: no limitations History of Present Illness HPI narrative: 75-year-old male with a past medical history of arthrosclerotic cardiovascular disease, proxysmal atrial fibrillation currently on Xarelto 20 mg daily, typical atrial flutter, ischemic cardiomyopathy, congestive heart failure, obstructive sleep apnea, insomnia and nephrolithiasis presenting to the ED with complaints of sudden onset of sharp left flank pain this morning and he reports he thinks he has a kidney stone. Denies any other symptoms which includes fevers, dizziness, change in vision, nausea/vomiting, chest pain, shortness of breath, palpitations, dyspnea on exertion, orthopnea, penile discharge, hematuria, dysuria, diarrhea or constipation or any other symptom complaints or concerns at this time. MD elicited complaint: flank pain Pertinent past history: kidney stones Onset (ago): hour(s) (Started this morning) Pain Consistency: intermittent Location: L flank Severity: severe Pain scale (0-10): 10 Quality: stabbing and sharp Radiation: none Migration to: no migration Exacerbating factors: nothing Relieving factors: nothing Associated symptoms: denies other symptoms Related Data Home Medications Medication Instructions Recorded Confirmed atorvastatin 1 tab PO DAILY 05/30/20 09/10/20 carvedilol 12.5 mg PO BID 05/30/20 09/10/20 melatonin 10 mg PO BEDTIME PRN 05/30/20 09/10/20 gabapentin 300 mg tablet 300 mg PO BEDTIME 11/10/20 Previous Rx's Medication Instructions Recorded bumetanide 2 mg tablet 2 mg PO BID #60 tab 07/07/20 metolazone 2.5 mg tablet 2.5 mg PO Q OTHER DAY #30 tab 08/11/20 gabapentin 300 mg capsule 300 mg PO BEDTIME #30 cap NS MDD 1 11/10/20 tab rivaroxaban 20 mg tablet 20 mg PO DAILY #90 tab 12/04/20 amiodarone 100 mg tablet 100 mg PO DAILY #30 tab 12/21/20 gabapentin 600 mg tablet 600 mg PO BEDTIME #30 tab 12/29/20 acetaminophen [Tylenol Extra 1,000 mg PO QID PRN #14 tab 01/10/21 Strength] ondansetron HCl [Zofran] 4 mg PO Q8H PRN #14 tab 01/10/21 oxycodone 5 mg PO BID PRN #10 tab 01/10/21 Allergies Allergy/AdvReac Type Severity Reaction Status Date / Time lisinopril [LISINOPRIL] Allergy Severe SWELLING/EDEMA,MASSIVE, Verified 11/30/20 14:09 facial edema Review of Systems Review of Systems Constitutional : No Weight loss, No Fever, No Chills, No Night Sweats, No Fatigue, NoMalaise ENT/Mouth: No ear pain, No sore throat, No Difficulty swallowing Cardiovascular : No Chest Pain, No SOB, No Dyspnea on Exertion, No Orthopnea, NoEdema, No Palpitations Respiratory : No Cough, No Sputum, No Wheezing, No Dyspnea Gastrointestinal : Positive left flank/abdominal pain, No Nausea, No Vomiting, No Diarrhea, No blood streaked emesis, No coffee-ground emesis, No gross hematemesis, No blood streak stool, No gross hematochezia, No Melena Genitourinary : No irregular bleeding, No Dysuria, No Urinary Frequency, No Hematuria,No Urinary Incontinence, No Urgency, No Flank Pain Musculoskeletal : No joint pain, No Myalgias, No Joint Swelling Skin : No Skin Lesions, No rash Neuro : No Weakness, No Numbness, No Paresthesias, No Loss of Consciousness, NoDizziness, No Headache Psych : No Social Issues, Heme/Lymph: No Bruising, No Bleeding,No Lymphadenopathy Endocrine : No Polyuria, No Polydipsia, No Temperature Intolerance Yes all other systems are reviewed and are negative Physical Exam Vital Signs: Vital Signs: Last Vital Signs Temp 97.7 F 01/10/21 15:32 Pulse 59 01/10/21 15:32 Resp 18 01/10/21 15:32 BP 104/56 L 01/10/21 15:32 Pulse Ox 93 01/10/21 15:32 Body Mass Index 27.7 vital signs have been reviewed as normal and appeared to be correct. Blood pressure normal. Heart rate normal. Respiration rate normal. Temperature normal. Oxygen saturation normal. Appearance: Alert. Oriented X3. No acute distress. Head: Normal external exam. Normocephalic. Eyes: PERRLA. EOMI. Conjunctiva and sclera normal. Eyelids normal. ENT: Pharynx normal. Uvula midline. Moist mucous membranes. No trismus noted. No drooling noted. No muffled voice noted. Neck: Normal inspection. Neck supple. FROM. No adenopathy. No meningeal signs. CVS: Normal heart rate and rhythm. Heart sound normal. No murmurs noted. Pulses normal throughout. Respiratory: No respiratory distress. Painless inspiration. Breath sounds normal. No wheezes/rales/rhonchi noted. Chest nontender. No accessory muscle usage noted or decreased air movement noted. Abdomen: Soft and tender to palpation to left flank with guarding. Nondistended. No rigidity. Bowel sounds normal in all 4 quadrants. No distention noted. No organomegaly noted. No visible injury noted. No rebound tenderness. Negative Rovsing sign. Negative obturator's sign. Negative psoas sign. Negative Hartman sign. Back: Positive left CVA tenderness. No right CVA tenderness is noted. Full range of motion noted. Skin: Skin warm and dry. Normal skin color. Normal skin turgor. No rashes/lesions/lacerations noted. Extremities: Extremities exhibit normal range of motion. Extremities nontender. Neuro: Oriented X 3. No motor deficit. No sensory deficit. Reflexes normal. Normal steady gait. Course Course Course Narrative: 14pm - labs return and patient with an elevated white blood cell count at 11,000 baseline anemia which is similar compared to prior. PTT/INR at 60.7/5.0. BUN 27. Random glucose 120. Total bilirubin 1.7. AST 52. Alkaline phosphate 170. BNP 664. All labs are at baseline is similar when compared to prior. UA within normal limits no evidence of UTI. Stool occult negative. Patient requested his BMP and TSH level done due to he is seen Dr. Rogers tomorrow and he wanted to know what his BNP level was before he seen him. He also started new thyroid medication therefore he wanted make sure that the thyroid medication was working. He is also requesting a chest x-ray and an EKG so that Ken has if by tomorrow. Otherwise patient denies any chest pain shortness of breath for lower extremity worsening swelling. Negative for any acute processes. CT scan of abdomen and pelvis revealed stable 1 cm nonobstructing left renal calculus no left-sided hydronephrosis. Cholelithiasis. Colonic diverticulosis without CT evidence to suggest active diverticulitis. - therefore patient's pain is most likely renal colic versus muscular strain. He continues to deny any chest pain therefore no troponin indicated at this time. Will DC home with symptomatic treatment instructions return if any new or worsening symptoms to continue taking his medications as previously prescribed and to follow up with Dr. Rogers his novelty maker tomorrow as scheduled. Patient understands agrees with this plan. MDM - Abdominal Pain MDM Narrative Medical decision making narrative: 13pm - 75-year-old male with a past medical history of arthrosclerotic cardiovascular disease, proxysmal atrial fibrillation currently on Xarelto 20 mg daily, typical atrial flutter, ischemic cardiomyopathy, congestive heart failure, obstructive sleep apnea, insomnia and nephrolithiasis presenting to the ED with complaints of sudden onset of sharp left flank pain this morning and he reports he thinks he has a kidney stone. - Plan: Labs, CT scan of abd/pelvis. Provide a L of IV fluids, 4 mg of Zofran 4 mg of IV morphine then re-evaluate. Medical Records Attestation: I reviewed the patient's medical records. Lab Data Attestation: I reviewed the patient's lab results. Result diagrams: 01/10/21 13:19 01/10/21 13:19 Labs: Lab Results 01/10/21 01/10/21 01/10/21 Range/Units 13:19 13:19 13:19 WBC 11.5 H (4.8-10.8) X10*3/uL RBC 5.60 D (4.60-5.80) X10*6/uL Hgb 12.4 L (14.0-18.0) g/dl Hct 40.9 L (42-52) % MCV 73.0 L (80-98) fL MCH 22.1 L (27.0-33.0) pg MCHC 30.3 L (31.0-36.0) g/dl RDW 20.7 H (11.0-16.0) % Plt Count 216 (160-400) X10*3/uL MPV 9.4 (9.4-12.4) fL Immature Gran % (Auto) 0.4 (0.0-0.4) % Neut % (Auto) 78.1 H (45-73) % Lymph % (Auto) 6.1 L (20-40) % [place] % (Auto) 12.8 H (2-11) % Eos % (Auto) 2.1 (0-4) % Baso % (Auto) 0.5 (0-2) % Lymph # (Auto) 0.7 L (1.2-4.9) X10*3/uL [place] # (Auto) 1.5 H (0.1-1.2) X10*3/uL Eos # (Auto) 0.2 (0.0-0.4) X10*3/uL Baso # (Auto) 0.1 (0.0-0.2) X10*3/uL Abs Immat Gran (auto) 0.05 H (0.00-0.03) X10*3/uL Absolute Neuts (auto) 9.0 H (2.0-8.3) X10*3/uL Absolute Nucleated RBC 0.000 (0.0-0.012) X10*3/uL Nucleated RBC % (auto) 0.0 (0.0-0.2) /100WBC Hold Purple Top PT 60.7 H (10.8-13.0) SEC INR 5.0 H* (0.9-1.1) Sodium 138 (135-145) mmol/L Potassium 4.2 (3.3-5.1) mmol/L Chloride 101 (96-108) mmol/L Carbon Dioxide 23 (22-29) mmol/L Anion Gap 18 (12-20) BUN 27 H (9-16) mg/dL Creatinine 1.09 (0.5-1.4) mg/dL Estim Creat Clear Calc 59.4 Estimated GFR > 60 Random Glucose 120 H (60-115) mg/dL Calcium 9.3 (8.4-10.2) mg/dL Magnesium 2.1 (1.6-2.6) mg/dL Total Bilirubin 1.7 H (0.0-1.0) mg/dL AST 52 H (5-37) U/L ALT 39 (0-40) U/L Alkaline Phosphatase 170 H D (39-117) U/L B-Natriuretic Peptide (<100) pg/mL Total Protein 7.4 (6.5-8.0) g/dL Albumin 4.3 (3.5-5.0) g/dL TSH 2.09 (0.32-4.0) uIU/mL Urine Color Urine Appearance Urine pH (5.0-8.0) Ur Specific [place] (1.005-1.025) Urine Protein (NEG-TRACE) MG/DL Urine Glucose (UA) (NEG) MG/DL Urine Ketones (NEG) MG/DL Urine Blood (NEG) Urine Nitrite (NEG) Ur Leukocyte Esterase (NEG) Urine RBC (0) /HPF Urine WBC (0-4) /HPF Ur Squamous Epith Cells /LPF Urine Bacteria /LPF Stool Occult Blood (NEGATIVE) 01/10/21 01/10/21 01/10/21 Range/Units 13:19 13:19 14:21 WBC (4.8-10.8) X10*3/uL RBC (4.60-5.80) X10*6/uL Hgb (14.0-18.0) g/dl Hct (42-52) % MCV (80-98) fL MCH (27.0-33.0) pg MCHC (31.0-36.0) g/dl RDW (11.0-16.0) % Plt Count (160-400) X10*3/uL MPV (9.4-12.4) fL Immature Gran % (Auto) (0.0-0.4) % Neut % (Auto) (45-73) % Lymph % (Auto) (20-40) % [place] % (Auto) (2-11) % Eos % (Auto) (0-4) % Baso % (Auto) (0-2) % Lymph # (Auto) (1.2-4.9) X10*3/uL [place] # (Auto) (0.1-1.2) X10*3/uL Eos # (Auto) (0.0-0.4) X10*3/uL Baso # (Auto) (0.0-0.2) X10*3/uL Abs Immat Gran (auto) (0.00-0.03) X10*3/uL Absolute Neuts (auto) (2.0-8.3) X10*3/uL Absolute Nucleated RBC (0.0-0.012) X10*3/uL Nucleated RBC % (auto) (0.0-0.2) /100WBC Hold Purple Top SEE NOTE PT (10.8-13.0) SEC INR (0.9-1.1) Sodium (135-145) mmol/L Potassium (3.3-5.1) mmol/L Chloride (96-108) mmol/L Carbon Dioxide (22-29) mmol/L Anion Gap (12-20) BUN (9-16) mg/dL Creatinine (0.5-1.4) mg/dL Estim Creat Clear Calc Estimated GFR Random Glucose (60-115) mg/dL Calcium (8.4-10.2) mg/dL Magnesium (1.6-2.6) mg/dL Total Bilirubin (0.0-1.0) mg/dL AST (5-37) U/L ALT (0-40) U/L Alkaline Phosphatase (39-117) U/L B-Natriuretic Peptide 664 H (<100) pg/mL Total Protein (6.5-8.0) g/dL Albumin (3.5-5.0) g/dL TSH (0.32-4.0) uIU/mL Urine Color Urine Appearance Urine pH (5.0-8.0) Ur Specific Spencer (1.005-1.025) Urine Protein (NEG-TRACE) MG/DL Urine Glucose (UA) (NEG) MG/DL Urine Ketones (NEG) MG/DL Urine Blood (NEG) Urine Nitrite (NEG) Ur Leukocyte Esterase (NEG) Urine RBC (0) /HPF Urine WBC (0-4) /HPF Ur Squamous Epith Cells /LPF Urine Bacteria /LPF Stool Occult Blood NEGATIVE (NEGATIVE) 01/10/21 Range/Units 15:36 WBC (4.8-10.8) X10*3/uL RBC (4.60-5.80) X10*6/uL Hgb (14.0-18.0) g/dl Hct (42-52) % MCV (80-98) fL MCH (27.0-33.0) pg MCHC (31.0-36.0) g/dl RDW (11.0-16.0) % Plt Count (160-400) X10*3/uL MPV (9.4-12.4) fL Immature Gran % (Auto) (0.0-0.4) % Neut % (Auto) (45-73) % Lymph % (Auto) (20-40) % [place] % (Auto) (2-11) % Eos % (Auto) (0-4) % Baso % (Auto) (0-2) % Lymph # (Auto) (1.2-4.9) X10*3/uL [place] # (Auto) (0.1-1.2) X10*3/uL Eos # (Auto) (0.0-0.4) X10*3/uL Baso # (Auto) (0.0-0.2) X10*3/uL Abs Immat Gran (auto) (0.00-0.03) X10*3/uL Absolute Neuts (auto) (2.0-8.3) X10*3/uL Absolute Nucleated RBC (0.0-0.012) X10*3/uL Nucleated RBC % (auto) (0.0-0.2) /100WBC Hold Purple Top PT (10.8-13.0) SEC INR (0.9-1.1) Sodium (135-145) mmol/L Potassium (3.3-5.1) mmol/L Chloride (96-108) mmol/L Carbon Dioxide (22-29) mmol/L Anion Gap (12-20) BUN (9-16) mg/dL Creatinine (0.5-1.4) mg/dL Estim Creat Clear Calc Estimated GFR Random Glucose (60-115) mg/dL Calcium (8.4-10.2) mg/dL Magnesium (1.6-2.6) mg/dL Total Bilirubin (0.0-1.0) mg/dL AST (5-37) U/L ALT (0-40) U/L Alkaline Phosphatase (39-117) U/L B-Natriuretic Peptide (<100) pg/mL Total Protein (6.5-8.0) g/dL Albumin (3.5-5.0) g/dL TSH (0.32-4.0) uIU/mL Urine Color YELLOW Urine Appearance CLEAR Urine pH 6.0 (5.0-8.0) Ur Specific [place] 1.020 (1.005-1.025) Urine Protein NEG (NEG-TRACE) MG/DL Urine Glucose (UA) NEG (NEG) MG/DL Urine Ketones NEG (NEG) MG/DL Urine Blood NEG (NEG) Urine Nitrite NEG (NEG) Ur Leukocyte Esterase NEG (NEG) Urine RBC 0 (0) /HPF Urine WBC 0 (0-4) /HPF Ur Squamous Epith Cells NONE /LPF Urine Bacteria NONE /LPF Stool Occult Blood (NEGATIVE) Imaging Data CT scan of abdomen pelvis without contrast: Attestation: I personally reviewed and interpreted this imaging study as follows: Radiologist's impression: FINDINGS: Visualized lung bases demonstrate mild dependent atelectasis. The liver demonstrates normal size, contour and attenuation. A few small gallstones are noted within an otherwise unremarkable appearing gallbladder. The spleen, pancreas and adrenal glands are unremarkable. Interval removal of right-sided ureteral stent. No right-sided renal calculi appreciated on today's imaging. Stable 1 cm left renal calculus again noted. There is no hydronephrosis of either kidney. A few small bilateral renal hypodensities are again noted, some of which demonstrate cystic characteristics and others which are too small to accurately characterize. The stomach is decompressed. Normal caliber loops of small and large bowel. Moderate colonic diverticulosis without CT evidence to suggest active diverticulitis. Nonaneurysmal abdominal aorta which demonstrates moderate atherosclerotic disease. No retroperitoneal lymphadenopathy. The bladder is normal in appearance. The prostate gland is surgically absent. Fat-containing left inguinal hernia again noted. No inguinal lymphadenopathy. Moderate diffuse degenerative changes of the spine. Bilateral L5 pars defects. CT/CT abdomen pelvis wo con IMPRESSION: 1. Interval removal of right-sided internal ureteral stent. No right-sided renal calculi noted. 2. Stable 1 cm nonobstructing left renal calculus. No left-sided hydronephrosis. 3. Cholelithiasis. 4. Colonic diverticulosis without CT evidence to suggest active diverticulitis. Chest x-ray: Attestation: I personally reviewed and interpreted this imaging study as follows: Radiologist's impression: FINDINGS: The cardiac silhouette is normal in size. The lungs are well aerated. No gross lobar consolidation. Interval resolution of previously present small right-sided pleural effusion. No left-sided pleural effusion. No pneumothorax. Moderate degenerative changes of the spine. XR/XR chest 2V IMPRESSION: No acute pulmonary pathology. ECG Data Attestation: I personally reviewed and interpreted this ECG as follows: ECG interpretation date: 01/10/21 ECG interpretation time: 16:21 Interpretation: Sinus bradycardia ventricular rate of 59 with a right bundle- branch block with nonspecific ST abnormality similar when compared to prior EKG 01/24/2020. No acute ischemic changes are noted. Discharge Plan Discharge Clinical Impression: Calculus, renal Patient Disposition: Home, Self-Care Instructions: Renal Colic (ED) Prescriptions: New ondansetron HCl [Zofran] 4 mg tablet 4 mg PO Q8H PRN (Reason: nausea and vomiting) Qty: 14 RF: 0 acetaminophen [Tylenol Extra Strength] 500 mg tablet 1,000 mg PO QID PRN (Reason: fever or pain) Qty: 14 RF: 0 oxycodone 5 mg tablet 5 mg PO BID PRN (Reason: pain) Qty: 10 RF: 0 No Action gabapentin 300 mg tablet 300 mg PO BEDTIME RF: 0 gabapentin 300 mg capsule 300 mg PO BEDTIME MDD 1 tab Qty: 30 RF: 6 Xarelto 20 mg tablet 20 mg PO DAILY Qty: 90 RF: 1 amiodarone 100 mg tablet 100 mg PO DAILY Qty: 30 RF: 5 atorvastatin 80 mg tablet 1 tab PO DAILY RF: 0 carvedilol 12.5 mg Tablet 12.5 mg PO BID RF: 0 melatonin 10 mg Tablet 10 mg PO BEDTIME PRN (Reason: Insomnia) RF: 0 bumetanide 2 mg tablet 2 mg PO BID Qty: 60 RF: 3 gabapentin 600 mg tablet 600 mg PO BEDTIME Qty: 30 RF: 3 metolazone 2.5 mg tablet 2.5 mg PO Q OTHER DAY Qty: 30 RF: 5 Referrals: Naveen Mcconnell [Primary Care Provider] - 2 days Travis Rogers MD [Physician] - 2 days Print Language: Italian [facility] Past Medical History Attestation statement: The following information was validated with the patient. Medical History Afib Atherosclerotic cardiovascular disease CAD (coronary artery disease) Cataract CHF (congestive heart failure) Chronic systolic (congestive) heart failure Ischemic cardiomyopathy Kidney stone WILLIE (obstructive sleep apnea) PAF (paroxysmal atrial fibrillation) Restless legs syndrome Sinus bradycardia Sleep apnea Typical atrial flutter Surgical History Hx of CABG Family History Family History Father No problems noted. Mother No problems noted. Social History Social History Alcohol intake: never Smoking Status: Never smoker Use of substances other than those prescribed or required for medical reasons: No Advance Directives: Yes Advance Directives Information Provided: Yes Advance Directives on File: No
[2021-01-10 14:07] LABS: Alanine Aminotransferase 39 U/L (0-40); Albumin Level 4.3 g/dL (3.5-5.0); Alkaline Phosphatase 170 U/L (39-117); Anion Gap 18 (12-20); Aspartate Amino Transferase 52 U/L (5-37); Bilirubin Total 1.7 mg/dL (0.0-1.0); Blood Urea Nitrogen 27 mg/dL (9-16); Calcium 9.3 mg/dL (8.4-10.2); Carbon Dioxide 23 mmol/L (22-29); Chloride 101 mmol/L (96-108); Creatinine Clr Calc Pharmacy 59.4; Estimated Glomerular Filt Rate > 60; Glucose Random 120 mg/dL (60-115); Magnesium 2.1 mg/dL (1.6-2.6); Potassium 4.2 mmol/L (3.3-5.1); Sodium 138 mmol/L (135-145); Total Protein 7.4 g/dL (6.5-8.0)
[2021-01-10] MEDS: HYDROmorphone HCl 0.5 MG/0.5 ML SYRINGE IVPUSH (14:20)
[2021-01-10 14:28] LABS: OBS Int Ctl Valid YES; OBS1 NEGATIVE (NEGATIVE)
[2021-01-10 15:32] VITALS: BP 104/56; PULSE 59; RESP 18; TEMP 36.5; O2SAT 93
[2021-01-10 15:45] LABS: Appearance Urine CLEAR; Color Urine YELLOW; Glucose Urine UA NEG (NEG); Leukocyte Esterase Urine NEG (NEG); Nitrite Urine NEG (NEG); Urine Blood NEG (NEG); Urine Ketones NEG (NEG); Urine Protein NEG (NEG-TRACE)
[2021-01-10 15:52] LABS: RBC Urine 0 /HPF (0); WBC Urine 0 /HPF (0-4)
[2021-01-10 16:04] LABS: Thyroid Stimulating Hormone 2.09 uIU/mL (0.32-4.0)
[2021-01-10 16:09] LABS: B Type Natriuretic Peptide 664 pg/mL (<100)
--- NOTE | 2021-01-10 16:16 | ECG_ITS ---
Test Reason : LEFT FLANK PAIN Blood Pressure : / mmHG Vent. Rate : 059 BPM Atrial Rate : 059 BPM P-R Int : 198 ms QRS Dur : 146 ms QT Int : 514 ms P-R-T Axes : 045 033 048 degrees QTc Int : 508 ms Sinus bradycardia Right bundle branch block Possible Inferior infarct (cited on or before 11-FEB-2016) Anteroseptal infarct (cited on or before 02-OCT-2012) Abnormal ECG When compared with ECG of 24-JAN-2020 15:34, Questionable change in initial forces of Anterior leads QT has lengthened Referred By: Michelle Booker Electronically Signed By:Laurent Burdick
== END 2021-01-10 16:59 | disposition home or self-care (01) ==
PROVIDERS: Physician Assistant Medical; Emergency Provider Emergency Medicine; PCP Internal Medicine
DX: N20.0 Calculus of kidney (principal); I48.91 Unspecified atrial fibrillation; Z79.01 Long term (current) use of anticoagulants; Z79.899 Other long term (current) drug therapy
CPT/HCPCS: 36415; 71046; 74176; 80053; 81001; 82272; 83735; 83880; 84443; 85025; 85610; 93005; 96365; 96375; 99285; J1170; J2270; J2405

== ENCOUNTER → 2021-01-11 09:46 | Outpatient (BNVA) | payer MEDICARE, OTHER, SELFPAY | PROVIDERS: PCP Internal Medicine; Visit Provider Internal Medicine | DX: I25.5 Ischemic cardiomyopathy (principal); I50.22 Chronic systolic (congestive) heart failure; I25.10 Atherosclerotic heart disease of native coronary artery without angina pectoris; I48.3 Typical atrial flutter; I48.0 Paroxysmal atrial fibrillation; R00.1 Bradycardia, unspecified; G47.33 Obstructive sleep apnea (adult) (pediatric) | CPT/HCPCS: 99212 ==

== ENCOUNTER → 2021-02-02 10:12 | Outpatient (BNVA) | payer MEDICARE, OTHER, SELFPAY | PROVIDERS: PCP Internal Medicine; Visit Provider Psychiatry & Neurology Neurology | DX: G47.61 Periodic limb movement disorder (principal); G25.81 Restless legs syndrome; G47.33 Obstructive sleep apnea (adult) (pediatric); G47.00 Insomnia, unspecified | CPT/HCPCS: 99212 ==

== ENCOUNTER 2021-03-01 11:25 | Emergency (ER) | payer OTHER, MEDICARE, SELFPAY ==
--- NOTE | ~2021-03-01 | XR_ITS ---
EXAMINATION: XR CHEST CLINICAL INFORMATION: Fluid overload COMPARISON: 01/10/2021 TECHNIQUE: Frontal view of the chest was obtained. FINDINGS: Status post median sternotomy and CABG. Stable appearance of the cardiomediastinal silhouette. There may be a trace layering right-sided effusion with blunting of the costophrenic sulcus. Suspect some basilar atelectasis. No dense consolidation. No pneumothorax. XR/XR chest 1V IMPRESSION: Suspect a small/trace right layering effusion with adjacent atelectasis. No dense consolidation.
[2021-03-01 11:44] VITALS: BP 117/72; PULSE 63; RESP 18; TEMP 36.4; O2SAT 97; BMI 28.3
--- NOTE | 2021-03-01 12:15 | ECG_ITS ---
Test Reason : WEAKNESS Blood Pressure : / mmHG Vent. Rate : 061 BPM Atrial Rate : 061 BPM P-R Int : 000 ms QRS Dur : 140 ms QT Int : 476 ms P-R-T Axes : 035 -48 037 degrees QTc Int : 479 ms Sinus rhythm Left axis deviation Right bundle branch block Inferior infarct , age undetermined Anteroseptal infarct , age undetermined Abnormal ECG When compared with ECG of 10-JAN-2021 16:21, No significant changes seen Referred By: eRggie Nunez Electronically Signed By:DARLIN UGARTE
[2021-03-01 12:41] LABS: MANUAL DIFF FLAG NO
[2021-03-01 12:42] LABS: Basophils Absolute Auto 0.1 X10*3/uL (0.0-0.2); Basophils Percent Auto 0.8 % (0-2); Eosinophils Absolute Auto 0.2 X10*3/uL (0.0-0.4); Eosinophils Percent Auto 2.9 % (0-4); Hematocrit 38.7 % (42-52); Hemoglobin 11.5 g/dl (14.0-18.0); Imm Gran Abs Auto 0.01 X10*3/uL (0.00-0.03); Imm Gran Pct Auto 0.2 % (0.0-0.4); Lymphocytes Absolute Auto 0.6 X10*3/uL (1.2-4.9); Lymphocytes Percent Auto 10.8 % (20-40); Mean Corpuscular HGB Conc 29.7 g/dl (31.0-36.0); Mean Corpuscular Hemoglobin 22.1 pg (27.0-33.0); Mean Corpuscular Volume 74.3 fL (80-98); Mean Platelet Volume 9.6 fL (9.4-12.4); Monocytes Absolute Auto 0.8 X10*3/uL (0.1-1.2); Monocytes Percent Auto 14.1 % (2-11); Neutrophils Absolute Auto 4.2 X10*3/uL (2.0-8.3); Neutrophils Percent Auto 71.2 % (45-73); Platelet Count 169 X10*3/uL (160-400); Red Blood Count 5.21 X10*6/uL (4.60-5.80); Red Cell Distribution Width 19.7 % (11.0-16.0); White Blood Count 5.9 X10*3/uL (4.8-10.8)
--- NOTE | 2021-03-01 12:47 | ED.GENADULT ---
HPI - General Adult General Chief complaint: Weakness Stated complaint: NO ENGERY Time Seen by Provider: 03/01/21 12:08 Source: patient Mode of arrival: ambulatory Limitations: no limitations History of Present Illness HPI narrative: Patient states feeling fatigued for the past 2 weeks. Patient states every time he does an activity he feels fatigue . Due to him feeling tired and sensation of shortness of breath. Patient denies any rectal bleeding, vomiting blood, dizziness, chest pain, slurred speech, paralysis of extremities, facial droop, loss of vision, headache, abdominal pain, nausea, vomiting, dysuria, hematuria, or flank pain. Related Data Home Medications Medication Instructions Recorded Confirmed atorvastatin 1 tab PO DAILY 05/30/20 01/11/21 carvedilol 12.5 mg PO BID 05/30/20 01/11/21 melatonin 10 mg PO BEDTIME PRN 05/30/20 01/11/21 Previous Rx's Medication Instructions Recorded bumetanide 2 mg tablet 2 mg PO BID #60 tab 07/07/20 metolazone 2.5 mg tablet 2.5 mg PO Q OTHER DAY #30 tab 08/11/20 rivaroxaban 20 mg tablet 20 mg PO DAILY #90 tab 12/04/20 gabapentin 600 mg tablet 600 mg PO BEDTIME #30 tab 12/29/20 acetaminophen [Tylenol Extra 1,000 mg PO QID PRN #14 tab 01/10/21 Strength] ondansetron HCl [Zofran] 4 mg PO Q8H PRN #14 tab 01/10/21 oxycodone 5 mg PO BID PRN #10 tab 01/10/21 amiodarone 100 mg tablet 100 mg PO DAILY #90 tab 01/11/21 ropinirole 0.25 mg tablet 0.5 mg PO BEDTIME #60 tab 02/02/21 Allergies Allergy/AdvReac Type Severity Reaction Status Date / Time lisinopril [LISINOPRIL] Allergy Severe SWELLING/EDEMA,MASSIVE, Verified 01/11/21 10:00 facial edema Review of Systems Review of Systems: Yes all other systems are reviewed and are negative Constitutional: Constitutional: Reports as per HPI, Reports no additional constitutional complaints and Reports fatigue Eyes: Eyes: Reports as per HPI and Reports no additional eye complaints ENT: Reports system reviewed and no additional complaints, except as documented and Reports as per HPI Cardiovascular: Cardiovascular: Reports as per HPI, Reports no additional cardiovascular complaints, Denies chest pain and Reports dyspnea on exertion Respiratory: Respiratory: Reports as per HPI, Reports no additional respiratory complaints and Reports dyspnea on exertion Gastrointestinal: Gastrointestinal: Reports as per HPI and Reports no additional gastrointestinal complaints Genitourinary: Genitourinary: Reports no additional male genitourinary complaints and Reports as per HPI Musculoskeletal: Musculoskeletal: Reports no additional musculoskeletal complaints and Reports as per HPI Neurologic: Reports system reviewed and no additional complaints, except as documented and Reports as per HPI Psychiatric: Psychiatric: Reports no additional psychiatric complaints and Reports as per HPI Endocrine: Endocrine: Reports fatigue FOR[facility]LY [facility] Past Medical History Medical History Afib Atherosclerotic cardiovascular disease CAD (coronary artery disease) Cataract CHF (congestive heart failure) Chronic systolic (congestive) heart failure Ischemic cardiomyopathy Kidney stone WILLIE (obstructive sleep apnea) PAF (paroxysmal atrial fibrillation) Restless legs syndrome Sinus bradycardia Sleep apnea Typical atrial flutter Surgical History Hx of CABG Family History Family History Father No problems noted. Mother No problems noted. Social History Social History Alcohol intake: never Patient Tobacco Use Status: Former Tobacco user Smoked in Last 30 Days: No Use of substances other than those prescribed or required for medical reasons: No Advance Directives: Yes Advance Directives Information Provided: No Advance Directives on File: No Physical Exam Vital Signs: Vital Signs: Last Vital Signs Temp 97.5 F 03/01/21 11:44 Pulse 67 03/01/21 13:57 Resp 16 03/01/21 13:57 BP 142/82 H 03/01/21 13:57 Pulse Ox 97 03/01/21 13:57 Body Mass Index 28.3 Const: General: cooperative, healthy appearing, comfortable, no acute distress, well developed, alert, awake and Physically active Orientation/consciousness: patient oriented x3 HENMT: Head: Yes normal to inspection, Yes No palpable skull fracture present, Yes normocephalic, Yes atraumatic and No abrasion Eyes: General: appearance normal, both eyes and all related structures Neck: Neck: Yes normal visual inspection, Yes full ROM, Yes no lymphadenopathy, Yes no meningeal signs, Yes trachea midline, Yes supple and No tender Chest: Chest palpation & inspection: normal inspection of the chest and normal palpation of entire chest wall Resp: Effort & Inspection: normal respiratory effort and able to speak in complete sentences Auscultation: clear to auscultation bilaterally Cardio: Jugular venous distension: no JVD Heart sounds: S1 normal heart sound present and S2 normal heart sound present GI: Inspection: Yes normal to inspection and No abdominal wall ecchymosis Palpation (GI): Soft to palpation, not firm, nontender, no guarding and not rigid : General: No CVA tenderness and Yes no CVA tenderness Back/Spine/Pelvis: Back: no CVA tenderness, No CVA tenderness and No back tenderness Skin: General skin exam: no rashes or lesions noted and elasticity normal Neuro: General: patient oriented x3, gait normal, no meningeal signs and CN's II-XI intact bilaterally Cranial nerves: Yes CN's II-XII intact bilaterally Extrem: Other: bilateral lower extremity positive for swelling and pitting edema. General: Yes normal to inspection and Yes full ROM Psych: Appearance: grossly normal, well kempt and not disheveled Course Course Course Narrative: patient will have blood work drawn in weeks he will have EKG chest x-ray and BNP drawn. Patient had COVID swab drawn Reevaluation(s) Reevaluation #1: Patient labs show CHF exacerbation. Troponin positive and BNP is elevated. Lasix will be ordered. I informed patient of this news of CHF exacerbation which contributed to his weakness and shortness of breath on exertion. Patient was informed it was necessary and it will be best for him to be admitted to the hospital for possibly better medical management of his CHF and for Cardiology to evaluate him, but patient refused to be admitted. Patient was informed we will watch him in case he deteriorates and will need nitrate and BiPAP if that happens but patient understand risks and would like to be signed out against medical advice. Patient informed of , respiratory distress, Heart attack, decreased quality of life and disability and patient still wants to sign out against medical advice. Patient agreeable only to IV Lasix. Patient states he will follow-up with his communications strategist tomorrow. I informed patient if he has any kind of symptoms to come to the ER immediately Time: 13:39 Medical Decision Making MDM Narrative Medical decision making narrative: CHF exacerbation Lab Data Result diagrams: 03/01/21 12:33 03/01/21 12:32 Labs: Lab Results 03/01/21 03/01/21 03/01/21 Range/Units 12:32 12:32 12:33 WBC 5.9 (4.8-10.8) X10*3/uL RBC 5.21 (4.60-5.80) X10*6/uL Hgb 11.5 L (14.0-18.0) g/dl Hct 38.7 L (42-52) % MCV 74.3 L (80-98) fL MCH 22.1 L (27.0-33.0) pg MCHC 29.7 L (31.0-36.0) g/dl RDW 19.7 H (11.0-16.0) % Plt Count 169 (160-400) X10*3/uL MPV 9.6 (9.4-12.4) fL Immature Gran % (Auto) 0.2 (0.0-0.4) % Neut % (Auto) 71.2 (45-73) % Lymph % (Auto) 10.8 L (20-40) % [place] % (Auto) 14.1 H (2-11) % Eos % (Auto) 2.9 (0-4) % Baso % (Auto) 0.8 (0-2) % Lymph # (Auto) 0.6 L (1.2-4.9) X10*3/uL [place] # (Auto) 0.8 (0.1-1.2) X10*3/uL Eos # (Auto) 0.2 (0.0-0.4) X10*3/uL Baso # (Auto) 0.1 (0.0-0.2) X10*3/uL Abs Immat Gran (auto) 0.01 (0.00-0.03) X10*3/uL Absolute Neuts (auto) 4.2 (2.0-8.3) X10*3/uL Absolute Nucleated RBC 0.000 (0.0-0.012) X10*3/uL Nucleated RBC % (auto) 0.0 (0.0-0.2) /100WBC PT (9.9-13.0) SEC INR (0.9-1.1) APTT (24.1-38.0) SEC Sodium 142 (135-145) mmol/L Potassium 5.0 (3.3-5.1) mmol/L Chloride 109 H (96-108) mmol/L Carbon Dioxide 24 (22-29) mmol/L Anion Gap 14 (12-20) BUN 22 H (9-16) mg/dL Creatinine 1.33 (0.5-1.4) mg/dL Estim Creat Clear Calc 49.2 Estimated GFR 52 Random Glucose 145 H (60-115) mg/dL Calcium 9.4 (8.4-10.2) mg/dL Magnesium 2.1 (1.6-2.6) mg/dL Total Bilirubin 1.2 H (0.0-1.0) mg/dL AST 25 D (5-37) U/L ALT 18 (0-40) U/L Alkaline Phosphatase 169 H (39-117) U/L Total Creatine Kinase 117 (38-174) U/L Troponin I High Sens 51.5 H* (<3.5-35.0) ng/L B-Natriuretic Peptide 1126 H (<100) pg/mL Total Protein 6.6 (6.5-8.0) g/dL Albumin 4.1 (3.5-5.0) g/dL 03/01/21 Range/Units 12:33 WBC (4.8-10.8) X10*3/uL RBC (4.60-5.80) X10*6/uL Hgb (14.0-18.0) g/dl Hct (42-52) % MCV (80-98) fL MCH (27.0-33.0) pg MCHC (31.0-36.0) g/dl RDW (11.0-16.0) % Plt Count (160-400) X10*3/uL MPV (9.4-12.4) fL Immature Gran % (Auto) (0.0-0.4) % Neut % (Auto) (45-73) % Lymph % (Auto) (20-40) % [place] % (Auto) (2-11) % Eos % (Auto) (0-4) % Baso % (Auto) (0-2) % Lymph # (Auto) (1.2-4.9) X10*3/uL [place] # (Auto) (0.1-1.2) X10*3/uL Eos # (Auto) (0.0-0.4) X10*3/uL Baso # (Auto) (0.0-0.2) X10*3/uL Abs Immat Gran (auto) (0.00-0.03) X10*3/uL Absolute Neuts (auto) (2.0-8.3) X10*3/uL Absolute Nucleated RBC (0.0-0.012) X10*3/uL Nucleated RBC % (auto) (0.0-0.2) /100WBC PT 22.8 H (9.9-13.0) SEC INR 2.0 H (0.9-1.1) APTT 37.6 (24.1-38.0) SEC Sodium (135-145) mmol/L Potassium (3.3-5.1) mmol/L Chloride (96-108) mmol/L Carbon Dioxide (22-29) mmol/L Anion Gap (12-20) BUN (9-16) mg/dL Creatinine (0.5-1.4) mg/dL Estim Creat Clear Calc Estimated GFR Random Glucose (60-115) mg/dL Calcium (8.4-10.2) mg/dL Magnesium (1.6-2.6) mg/dL Total Bilirubin (0.0-1.0) mg/dL AST (5-37) U/L ALT (0-40) U/L Alkaline Phosphatase (39-117) U/L Total Creatine Kinase (38-174) U/L Troponin I High Sens (<3.5-35.0) ng/L B-Natriuretic Peptide (<100) pg/mL Total Protein (6.5-8.0) g/dL Albumin (3.5-5.0) g/dL ECG Data Interpretation: sinus rhythm with AV dissociation. Right bundle-branch block. Ventricular rate 61. QRS 140. QTC 479. Discharge Plan Discharge Clinical Impression: CHF (congestive heart failure) Patient Disposition: Left Against Medical Advice Instructions: Heart Failure (ED) Additional Instructions: you are leaving against medical advice. You are refusing admission for congestive heart failure exacerbation With blood work indicating heart injury. Your BNP and troponin came back positive. X-ray shows slight right-sided pleural effusion. Return to the ED immediately if symptoms worsen such as worsening shortness of breath on exertion, chest pain, increased swelling of lower extremity, dizziness, crushing chest pain, or any other concerning symptoms. Prescriptions: No Action Xarelto 20 mg tablet 20 mg PO DAILY Qty: 90 RF: 1 atorvastatin 80 mg tablet 1 tab PO DAILY RF: 0 carvedilol 12.5 mg Tablet 12.5 mg PO BID RF: 0 melatonin 10 mg Tablet 10 mg PO BEDTIME PRN (Reason: Insomnia) RF: 0 ondansetron HCl [Zofran] 4 mg tablet 4 mg PO Q8H PRN (Reason: nausea and vomiting) Qty: 14 RF: 0 acetaminophen [Tylenol Extra Strength] 500 mg tablet 1,000 mg PO QID PRN (Reason: fever or pain) Qty: 14 RF: 0 oxycodone 5 mg tablet 5 mg PO BID PRN (Reason: pain) Qty: 10 RF: 0 bumetanide 2 mg tablet 2 mg PO BID Qty: 60 RF: 3 gabapentin 600 mg tablet 600 mg PO BEDTIME Qty: 30 RF: 3 ropinirole [Requip] 0.25 mg tablet 0.5 mg PO BEDTIME Qty: 60 RF: 2 metolazone 2.5 mg tablet 2.5 mg PO Q OTHER DAY Qty: 30 RF: 5 amiodarone 100 mg tablet 100 mg PO DAILY Qty: 90 RF: 4 Stand Alone Forms: Against Medical Advice Interventions: ED Discharge Assessment Last Done: 03/01/21 14:16 Discharge Date/Time: 03/01/21 14:17 Print Language: Ukrainian
[2021-03-01 12:48] LABS: Prothrombin Time 22.8 SEC (9.9-13.0)
[2021-03-01 12:50] LABS: Partial Thromboplastin Time 37.6 SEC (24.1-38.0)
[2021-03-01 13:07] LABS: Alanine Aminotransferase 18 U/L (0-40); Albumin Level 4.1 g/dL (3.5-5.0); Alkaline Phosphatase 169 U/L (39-117); Anion Gap 14 (12-20); Aspartate Amino Transferase 25 U/L (5-37); Bilirubin Total 1.2 mg/dL (0.0-1.0); Blood Urea Nitrogen 22 mg/dL (9-16); Calcium 9.4 mg/dL (8.4-10.2); Carbon Dioxide 24 mmol/L (22-29); Chloride 109 mmol/L (96-108); Creatinine Clr Calc Pharmacy 49.2; Estimated Glomerular Filt Rate 52; Glucose Random 145 mg/dL (60-115); Sodium 142 mmol/L (135-145); Total Protein 6.6 g/dL (6.5-8.0)
[2021-03-01 13:16] LABS: B Type Natriuretic Peptide 1126 pg/mL (<100); Troponin-I High Sensitivity 51.5 ng/L (<3.5-35.0)
[2021-03-01 13:19] LABS: Magnesium 2.1 mg/dL (1.6-2.6)
[2021-03-01] MEDS: Furosemide 40 MG/4 ML VIAL IVPUSH (13:50)
[2021-03-01 13:57] VITALS: BP 142/82; PULSE 67; RESP 16; O2SAT 97
== END 2021-03-01 14:17 | disposition left against medical advice (07) ==
PROVIDERS: Physician Assistant; Emergency Provider Emergency Medicine; PCP Internal Medicine
DX: I50.9 Heart failure, unspecified (principal); R53.1 Weakness; R06.02 Shortness of breath; I48.91 Unspecified atrial fibrillation
CPT/HCPCS: 36415; 71045; 80053; 82550; 83735; 83880; 84484; 85025; 85610; 85730; 93005; 99284; 99285; J1940

== ENCOUNTER 2021-04-21 11:15 | Outpatient (REF) | payer MEDICARE, OTHER, SELFPAY ==
[2021-04-21 13:22] LABS: B Type Natriuretic Peptide 1030 pg/mL (<100)
[2021-04-21 13:34] LABS: Anion Gap 15 (12-20); Blood Urea Nitrogen 21 mg/dL (9-16); Calcium 9.3 mg/dL (8.4-10.2); Carbon Dioxide 25 mmol/L (22-29); Chloride 101 mmol/L (96-108); Estimated Glomerular Filt Rate 53; Glucose Random 113 mg/dL (60-115); Potassium 4.1 mmol/L (3.3-5.1); Sodium 137 mmol/L (135-145)
[2021-04-21 13:47] LABS: TSH reflex Free T4 6.08 uIU/mL (0.32-4.0)
[2021-04-21 16:35] LABS: Free T4 (Free Thyroxine) 1.06 ng/dL (0.71-1.85)
== END 2021-04-21 11:16 | disposition home or self-care (01) ==
LOC: HO.LAB 11:15
PROVIDERS: PCP Internal Medicine; Visit Provider Internal Medicine
DX: I25.5 Ischemic cardiomyopathy (principal); I48.0 Paroxysmal atrial fibrillation; I50.22 Chronic systolic (congestive) heart failure; I25.10 Atherosclerotic heart disease of native coronary artery without angina pectoris; I48.3 Typical atrial flutter; R00.1 Bradycardia, unspecified; G47.33 Obstructive sleep apnea (adult) (pediatric)
CPT/HCPCS: 36415; 80048; 83880; 84439; 84443; 99212

== ENCOUNTER 2021-05-09 21:38 | Emergency (ER) | payer OTHER, SELFPAY ==
--- NOTE | 2021-05-09 22:03 | ECG_ITS ---
Test Reason : WEAKNESS Blood Pressure : / mmHG Vent. Rate : 051 BPM Atrial Rate : 051 BPM P-R Int : 000 ms QRS Dur : 110 ms QT Int : 494 ms P-R-T Axes : 000 101 -67 degrees QTc Int : 455 ms Sinus bradycardia Rightward axis Incomplete right bundle branch block Anteroseptal infarct (cited on or before 02-OCT-2012) Abnormal ECG When compared with ECG of 01-MAR-2021 12:58, Incomplete right bundle branch block has replaced Right bundle branch block Heart rate has decreased Referred By: Generic ED Physician Electronically Signed By:SHSAHI TOLLIVER
[2021-05-10 00:08] VITALS: BP 116/60; PULSE 61; RESP 20; TEMP 36.7; O2SAT 96
== END 2021-05-10 01:06 | disposition left against medical advice (07) ==
PROVIDERS: Emergency Provider Emergency Medicine; PCP Internal Medicine
DX: Z04.9 Encounter for examination and observation for unspecified reason (principal)
CPT/HCPCS: 93005; 99282

== ENCOUNTER → 2021-05-13 10:11 | Outpatient (BNVA) | payer OTHER, MEDICARE, SELFPAY | PROVIDERS: PCP Internal Medicine; Visit Provider Internal Medicine ==

== ENCOUNTER → 2021-05-26 14:34 | Outpatient (BNVA) | payer MEDICARE, OTHER, SELFPAY | PROVIDERS: PCP Internal Medicine; Visit Provider Internal Medicine | DX: I25.10 Atherosclerotic heart disease of native coronary artery without angina pectoris (principal); I48.3 Typical atrial flutter; I48.0 Paroxysmal atrial fibrillation; G47.33 Obstructive sleep apnea (adult) (pediatric); R00.1 Bradycardia, unspecified | CPT/HCPCS: 99212 ==

== ENCOUNTER → 2021-06-15 10:36 | Outpatient (BNVA) | payer MEDICARE, OTHER, SELFPAY | PROVIDERS: PCP Internal Medicine; Visit Provider Psychiatry & Neurology Neurology | CPT/HCPCS: Q3014 ==

== ENCOUNTER → 2021-08-17 10:44 | Outpatient (BNVA) | payer MEDICARE, OTHER, SELFPAY | PROVIDERS: PCP Internal Medicine; Visit Provider Psychiatry & Neurology Neurology | DX: G47.61 Periodic limb movement disorder (principal); G25.81 Restless legs syndrome; G47.33 Obstructive sleep apnea (adult) (pediatric); G47.00 Insomnia, unspecified; Z99.89 Dependence on other enabling machines and devices | CPT/HCPCS: 99212 ==

== ENCOUNTER → 2021-08-19 13:36 | Outpatient (BNVA) | payer MEDICARE, OTHER, SELFPAY | PROVIDERS: PCP Internal Medicine; Visit Provider Internal Medicine | DX: I25.5 Ischemic cardiomyopathy (principal); I50.22 Chronic systolic (congestive) heart failure; I25.10 Atherosclerotic heart disease of native coronary artery without angina pectoris; I48.3 Typical atrial flutter; I48.0 Paroxysmal atrial fibrillation; R00.1 Bradycardia, unspecified; G47.33 Obstructive sleep apnea (adult) (pediatric) | CPT/HCPCS: 93005; 99212 ==

== ENCOUNTER → 2021-09-14 14:37 | Outpatient (BNVA) | payer MEDICARE, OTHER, SELFPAY | PROVIDERS: PCP Internal Medicine; Visit Provider Nurse Practitioner Family | DX: G47.61 Periodic limb movement disorder (principal); G25.81 Restless legs syndrome; G47.00 Insomnia, unspecified; Z79.899 Other long term (current) drug therapy | CPT/HCPCS: Q3014 ==

== ENCOUNTER → 2021-10-15 09:01 | Outpatient (REF) | payer MEDICARE, OTHER, SELFPAY ==
--- NOTE | 2021-10-15 09:09 | HM_ITS ---
Conclusion: 1. Patient was monitored for total period of 3 days and 1 hour. 2. Baseline was normal sinus rhythm with average heart of 66 beats per minute. 3. Intermittent junctional rhythm cannot be ruled out on this study, P-waves are not clearly identified when heart rate is at 48 beats per minute 4. Total of 12,682 PVCs accounting for 4.34% of total burden accounting for frequent PVCs 5. 5 short salvos of nonsustained VT, longest 4 beats 6. Frequent slow runs of supraventricular tachycardia, longest lasting 2 minutes and 19 seconds, could not rule out atrial fibrillation/atrial tachycardia 7. No patient reported events MTDD
--- NOTE | 2021-10-15 09:09 | CA_ITS ---
Transthoracic Echocardiogram Patient (Last, First, Middle): Leoncio Liu F Gender: Male Date of : 1945 Age: 75 Procedure Date: 10/15/2021 Procedure Type: Transthoracic Echocardiogram Location: OP Height: 170.18 cm Weight: 83.92 kg BSA: 1.96 m2 Heart Rate: bpm BP: 110 / 60 mmHg Branch Or Department Chief Librarian: THERESE Quintero MD: Travis Rogers MD Air Pollution Auditor: Adonis Fuentes MD Symptoms: I50.22 - Chronic systolic (congestive) heart failure Study Quality: Good ECG Rhythm: Undetermined Conclusions: - 1. Mildly to moderately reduced LV with LVEF of 40-45% with restrictive filling defect 2. Dilated RV with reduced systolic function 3. Moderately dilated left atrium 4. Mild mitral regurgitation 5. Moderately elevated right ventricular systolic pressure most likely due to significantly elevated right atrial pressures 5. No gross pericardial effusion Findings Left Ventricle Normal left ventricular cavity size. There is normal left ventricular wall thickness. The left ventricular systolic function is mildly decreased. The visually estimated ejection fraction is between 40-45%. Spectral Doppler is indicative of a restrictive filling pattern. Wall Motion Rest Echo Findings The apical inferior, apical septum, and mid anteroseptal segments are hypokinetic. The inferoseptal wall, the basal inferior, and mid inferior segments are akinetic. All other scored wall segments showed normal motion. Right Ventricle Mildly increased right ventricular cavity size. There is moderately decreased right ventricular systolic function. Atria The left atrium is moderately dilated. There is no evidence of interatrial shunt. The right atrium is likely dilated. Aortic Valve There is mild calcification of the aortic valve. There is moderate thickening of the aortic valve. There is no aortic valve stenosis. There is no aortic valve regurgitation. Mitral Valve There is mild anterior and moderate posterior mitral leaflet thickening. The posterior mitral leaflet has restricted mobility. There is mild mitral annular calcification. There is mild mitral valve regurgitation. There is no mitral valve stenosis. Pulmonic Valve The pulmonic valve is likely normal. There is trace pulmonic valve regurgitation. Tricuspid Valve Normal tricuspid valve structure. There is mild to moderate tricuspid valve regurgitation. Significantly elevated right atrial pressure. Moderate pulmonary hypertension is present. Great Vessels All visible segments of the aorta are normal in size. The pulmonary artery was not well visualized. Venous The inferior vena cava is mildly dilated and does not collapse with inspiration. Pericardium/Pleural There is no evidence of pericardial effusion. Prior Study Comparison Changes noted compared to prior study dated: 12/25/2020. RV systolic pressure in our pressures are elevated Measurements 2D Linear Measurements IVSd: 1.11 0.6-0.9/0.6-1.0 cm LVIDd: 5.30 3.9-5.3/4.2-5.9 cm LVIDd Index: 2.70 2.4-3.2/2.2-3.1 cm/m2 LVIDs: 4.18 2.0-3.6 cm LVPWd: 1.12 0.7-1.1 cm Ao Root: 3.40 2.1-3.5 cm LA Diam: 4.10 2.7-3.8/3.0-4.0 cm LAIDs Index: 2.09 1.5-2.3 cm/m2 LV Mass: 289.20 67-162/88-224 g LV Mass Index: 147.55 43-95/49-115 g/m2 LVOT Diam: 2.20 3.0+(-)1.3 cm 2D Systolic Function EF 4C: 37.60 >55% EF 2C: 44.00 >55% EF BiP: 40.80 >55% Mitral Valve E'Lateral: 4.90 E'Medial: 3.48 Aortic Valve AoV Pk Thad: 0.98 AoV Mn Thad: 0.72 AoV VTI: 0.17 AoV Pk Grad: 4.00 Aov Mn Grad: 2.00 CODY Cont.VTI: 2.75 LVOT LVOT Pk Thad: 0.61 LVOT Mn Thad: 0.45 LVOT VTI: 0.13 LVOT Pk Grad: 2.00 LVOT Mn Grad: 1.00 LVOT Diam: 2.20 LVOT Area: 3.80 Diastolic Function E'Medial: 3.48 E' Laterial: 4.90 Right Ventricle TAPSE (mm): 10.40 TVS' Thad: 5.11 Tricuspid Valve TR Pk Thad: 2.99 TR Pk Grad: 36.00 RA Press: 15.00 RVSP: 51.00 Great Vessels Aorta Ao Root-2D: 3.40 2.0-3.7 cm Ao Asc: 3.10 2.1-3.4 cm Ao Arch: 2.30 Updated in Other Vendor System with Status of Final Adonis Fuentes MD electronically signed on 10/16/2021 12:07:39 PM with status of Final
== END ==
LOC: HO.CARD 09:01
PROVIDERS: Visit Provider Internal Medicine
DX: I50.22 Chronic systolic (congestive) heart failure (principal); I48.0 Paroxysmal atrial fibrillation
CPT/HCPCS: 93242; 93306

== ENCOUNTER 2021-10-20 11:33 | Inpatient (IN) | payer OTHER, MEDICARE, SELFPAY ==
--- NOTE | ~2021-10-20 | US_ITS ---
EXAMINATION: US VENOUS ULTRASOUND WITH DOPPLER LOWER EXTREMITY, BILATERAL CLINICAL INFORMATION: Bilateral leg swelling. COMPARISON: None TECHNIQUE: Ultrasound of the deep veins is performed from the hip to the calf with compression sonography and color and pulse Doppler assessment. Spectral analysis with color-flow imaging is performed. FINDINGS: RIGHT: There is normal venous compression and respiratory variation and augmented flow. The visualized common femoral vein, superficial femoral vein, profunda femoral vein, popliteal vein, and the trifurcation region shows no evidence of deep venous thrombosis. There is no significant popliteal fossa cyst. There is mild calf edema. LEFT: There is normal venous compression and respiratory variation and augmented flow. The visualized common femoral vein, superficial femoral vein, profunda femoral vein, popliteal vein, and the trifurcation region shows no evidence of deep venous thrombosis. There is no significant popliteal fossa cyst. There is mild calf edema. If the patient's symptoms persist, followup ultrasound in 5 days 7 days might be of value to exclude proximal propagation from a non-visualized calf vein. US/US venous duplex LE BI IMPRESSION: No DVT demonstrated in bilateral lower extremity. Bilateral calf edema is noted.
--- NOTE | ~2021-10-20 | XR_ITS ---
EXAMINATION: XR CHEST CLINICAL INFORMATION: CHF COMPARISON: Previous chest x-ray February 2021 TECHNIQUE: Frontal view of the chest was obtained. FINDINGS: The cardiac silhouette is enlarged but stable. There are post-CABG changes. Hilar and mediastinal contours are unremarkable. The lungs are clear. There is a small right pleural effusion. There may be a tiny left pleural effusion. There is no pneumothorax. There are degenerative changes of the spine and shoulders. XR/XR chest 1V IMPRESSION: Stable enlargement of the cardiac silhouette. Small right pleural effusion.
--- NOTE | ~2021-10-20 | US_ITS ---
EXAMINATION: US RETROPERITONEAL LIMITED (RENAL ONLY) CLINICAL INFORMATION: Acute kidney injury versus chronic kidney disease. COMPARISON: CT abdomen/pelvis dated from 01/10/2021. TECHNIQUE: Real-time imaging of the kidneys. FINDINGS: RIGHT KIDNEY: 10.2 x 6.3 x 6.2 cm (SAG x AP x TRV). The kidney is normal in size, contour, and echogenicity. Renal cortical thickness is normal. No renal calculi or hydronephrosis. There is a simple cyst in the lateral mid pole measuring 1.6 cm, and 2 additional simple cysts in the lower pole measuring 1.7 and 1.5 cm in maximum dimensions. LEFT KIDNEY: 9.9 x 6.0 x 4.8 cm (SAG x AP x TRV). The kidney is normal in size, contour, and echogenicity. Renal cortical thickness is normal. No focal parenchymal lesions or hydronephrosis. There is a 1.3 cm calculus in the lateral mid pole. US/US renal BI IMPRESSION: Simple right-sided renal cysts not requiring further follow-up. Nonobstructive 1.3 cm calculus in the left kidney.
[2021-10-20 13:02] VITALS: BP 102/44; PULSE 55; RESP 18; TEMP 36.3; O2SAT 94; BMI 31.6
--- NOTE | 2021-10-20 13:05 | ECG_ITS ---
Test Reason : CHF Blood Pressure : / mmHG Vent. Rate : 062 BPM Atrial Rate : 147 BPM P-R Int : 000 ms QRS Dur : 152 ms QT Int : 506 ms P-R-T Axes : 000 209 045 degrees QTc Int : 513 ms Artifact in tracing Possible sinus rhythm with PVCs Right bundle branch block Septal infarct , age undetermined Abnormal ECG When compared with ECG of 09-MAY-2021 22:10, No significant changes seen Referred By: Hodan Garcia Electronically Signed By:DARLIN UGARTE
--- NOTE | 2021-10-20 13:07 | ED_ITS ---
HPI - SOB/Dyspnea General Chief Complaint: General Medical Stated Complaint: L leg swelling Time Seen by Provider: 10/20/21 13:04 Source: patient Mode of arrival: ambulatory Limitations: no limitations History of Present Illness HPI Narrative: This is a 75-year-old male came in for evaluation of gaining 12 lb in 3 days and bilateral lower extremity swelling. Patient with a history of atrial fibrillation taking Xarelto all this, CAD, systolic CHF, ischemic cardiomyopathy. Patient normally use Bumex 2 mg b.i.d. Patient has been complaining of increased shortness of breath with exertion, or lying supine at night time. Related Data Home Medications Medication Instructions Recorded Confirmed melatonin 10 mg tablet 10 mg PO BEDTIME PRN 05/30/20 08/19/21 Previous Rx's Medication Instructions Recorded ondansetron HCl 4 mg tablet 4 mg PO Q8H PRN #14 tab 01/10/21 (Zofran) oxycodone 5 mg tablet 5 mg PO BID PRN #10 tab 01/10/21 ropinirole 0.25 mg tablet 1 mg PO BEDTIME 90 Days #360 tab 08/03/21 MDD 1 mg tabs upto 4 tasb a day gabapentin 600 mg tablet 600 mg PO BEDTIME 30 Days #30 tab 08/17/21 amiodarone 100 mg tablet 100 mg PO DAILY #90 tab 10/08/21 atorvastatin 80 mg tablet 80 mg PO DAILY #90 tab 10/08/21 bumetanide 2 mg tablet 2 mg PO BID 90 Days #180 tab 10/08/21 carvedilol 12.5 mg tablet 12.5 mg PO BID 90 Days #180 tab 10/08/21 metolazone 2.5 mg tablet 2.5 mg PO Q OTHER DAY #30 tab 10/08/21 rivaroxaban 20 mg tablet (Xarelto) 20 mg PO DAILY #90 tab 10/08/21 Allergies Allergy/AdvReac Type Severity Reaction Status Date / Time lisinopril [LISINOPRIL] Allergy Severe SWELLING/EDEMA,MASSIVE, Verified 09/14/21 14:41 facial edema Review of Systems Review of Systems: All other systems are reviewed and are negative Constitutional: Reports as per HPI and Reports no additional constitutional complaints Eyes: Reports as per HPI and Reports no additional eye complaints Reports system reviewed and no additional complaints, except as documented Cardiovascular: Reports as per HPI and Reports no additional cardiovascular complaints Respiratory: Reports as per HPI and Reports no additional respiratory complaints Gastrointestinal: Reports as per HPI and Reports no additional gastrointestinal complaints Genitourinary: Reports no additional female genitourinary complaints Musculoskeletal: Reports no additional musculoskeletal complaints Skin/Breast: Reports system reviewed and no additional complaints, except as docu Psychiatric: Reports no additional psychiatric complaints Endocrine: Reports no additional endocrine complaints Hematologic/Lymphatic: Reports no additional hematologic/lymphatic complaints Allergic/Immunologic: Reports no additional allergic/immunologic complaints Reports system reviewed and no additional complaints, except as documented and Reports Abnormal speech present [facility] Past Medical History Medical History Afib Atherosclerotic cardiovascular disease CAD (coronary artery disease) Cataract CHF (congestive heart failure) Chronic systolic (congestive) heart failure Ischemic cardiomyopathy Kidney stone WILLIE (obstructive sleep apnea) PAF (paroxysmal atrial fibrillation) Restless legs syndrome Sinus bradycardia Sleep apnea Typical atrial flutter Surgical History Hx of CABG Family History Family History Father No problems noted. Mother No problems noted. Social History Social History Alcohol intake: never Patient Tobacco Use Status: Former Tobacco user Advance Directives: Yes Advance Directives Information Provided: No Advance Directives on File: No Physical Exam Vital Signs: Vital Signs: Last Vital Signs Temp 97.4 F 10/20/21 13:02 Pulse 55 10/20/21 13:02 Resp 18 10/20/21 13:02 BP 102/44 L 10/20/21 13:02 Pulse Ox 94 10/20/21 13:02 BMI result Body Mass Index 31.6 Vital signs have been reviewed as appeared to be correct. Blood pressure normal. Heart rate normal. Respiration rate normal. Temperature normal. Oxygen saturation normal. Appearance: Alert. Oriented X3. No acute distress. Head: Normal external exam. Normocephalic. Atraumatic. No Kaufman signs noted. No raccoon eyes noted Eyes: PERRLA. EOMI. Conjunctiva and sclera normal. Eyelids normal. ENT: TM's Normal. Pharynx normal. Uvula midline. Moist mucous membranes. No trismus noted. No drooling noted. No muffled voice noted. Neck: Normal inspection. Neck supple. FROM. No adenopathy. Thyroid Normal. No meningeal signs. No neck mass noted. CVS: Normal heart rate and rhythm. Heart sound normal. No murmurs noted. Pulses normal throughout. Respiratory: No respiratory distress. Painless inspiration. Breath sounds normal. Bilateral basilar rales. Chest nontender. No accessory muscle usage noted or decreased air movement noted. Abdomen: Soft and nontender. Bowel sounds normal in all 4 quadrants. No distention noted. No organomegaly noted. No visible injury noted. Back: No CVA tenderness. Full range of motion noted. Skin: Skin warm and dry. Normal skin color. Normal skin turgor. No rashes/lesions/lacerations noted. Extremities: +2 lower extremity edema. Extremities exhibit normal range of motion. Extremities nontender. Neuro: Oriented X 3. Cranial nerve exam: II-XII are grossly intact No motor deficit. No sensory deficit. Reflexes normal. Course Course Course Narrative: Assessment and plan. 75-year-old male with history of congestive heart failure came in with weight gain and lower extremity swelling. Patient is using Bumex at home will disivliae as an inpatient, the case discussed with Dr. Rogers who also recommended admission. Slightly elevated troponin likely due to renal insufficiency will repeat trop onin in 3 hours case signed out to to check on the 2nd troponin and lower extremities ultrasounds. MDM - SOB/Dyspnea Medical Records Attestation: I reviewed the patient's medical records. Lab Data Attestation: I reviewed the patient's lab results. Result diagrams: 10/20/21 14:11 10/20/21 14:11 Labs: Lab Results 10/20/21 10/20/21 10/20/21 Range/Units 14:10 14:10 14:11 WBC 6.9 (4.8-10.8) X10*3/uL RBC 5.42 (4.60-5.80) X10*6/uL Hgb 12.0 L (14.0-18.0) g/dl Hct 39.0 L (42.0-52.0) % MCV 72.0 L (80.0-98.0) fL MCH 22.1 L (27.0-33.0) pg MCHC 30.8 L (31.0-36.0) g/dl RDW 22.3 H (11.0-16.0) % Plt Count 182 (160-400) X10*3/uL MPV 10.1 (9.4-12.4) fL Immature Gran % (Auto) 0.3 (0.0-0.4) % Neut % (Auto) 75.7 H (45-73) % Lymph % (Auto) 7.8 L (20-40) % Sutton % (Auto) 13.3 H (2-11) % Eos % (Auto) 2.2 (0-4) % Baso % (Auto) 0.7 (0-2) % Lymph # (Auto) 0.5 L (1.2-4.9) X10*3/uL Sutton # (Auto) 0.9 (0.1-1.2) X10*3/uL Eos # (Auto) 0.2 (0.0-0.4) X10*3/uL Baso # (Auto) 0.1 (0.0-0.2) X10*3/uL Abs Immat Gran (auto) 0.02 (0.00-0.03) X10*3/uL Absolute Neuts (auto) 5.2 (2.0-8.3) x10*3/uL Absolute Nucleated RBC 0.000 (0.0-0.012) X10*3/uL Nucleated RBC % (auto) 0.0 (0.0-0.2) /100WBC Sodium (135-145) mmol/L Potassium (3.3-5.1) mmol/L Chloride (96-108) mmol/L Carbon Dioxide (22-29) mmol/L Anion Gap (12-20) BUN (9-16) mg/dL Creatinine (0.5-1.4) mg/dL Estim Creat Clear Calc Estimated GFR Random Glucose (60-115) mg/dL Calcium (8.4-10.2) mg/dL Total Bilirubin (0.0-1.0) mg/dL Direct Bilirubin (0.0-0.5) mg/dL AST (5-37) U/L ALT (0-40) U/L Alkaline Phosphatase (39-117) U/L Troponin I High Sens (<3.5-35.0) ng/L B-Natriuretic Peptide (<100) pg/mL Total Protein (6.5-8.0) g/dL Albumin (3.5-5.0) g/dL Lipase (8-78) U/L Urine Color YELLOW Urine Appearance CLEAR Urine pH 6.0 (5.0-8.0) Ur Specific Mather 1.010 (1.005-1.025) Urine Protein NEG (NEG-TRACE) MG/DL Urine Glucose (UA) NEG (NEG) MG/DL Urine Ketones NEG (NEG) MG/DL Urine Blood NEG (NEG) Urine Nitrite NEG (NEG) Ur Leukocyte Esterase NEG (NEG) COVID-19 (JALIL) Negative (Negative) COVID-19 Clin Com See Note 10/20/21 10/20/21 Range/Units 14:11 14:11 WBC (4.8-10.8) X10*3/uL RBC (4.60-5.80) X10*6/uL Hgb (14.0-18.0) g/dl Hct (42.0-52.0) % MCV (80.0-98.0) fL MCH (27.0-33.0) pg MCHC (31.0-36.0) g/dl RDW (11.0-16.0) % Plt Count (160-400) X10*3/uL MPV (9.4-12.4) fL Immature Gran % (Auto) (0.0-0.4) % Neut % (Auto) (45-73) % Lymph % (Auto) (20-40) % Sutton % (Auto) (2-11) % Eos % (Auto) (0-4) % Baso % (Auto) (0-2) % Lymph # (Auto) (1.2-4.9) X10*3/uL Sutton # (Auto) (0.1-1.2) X10*3/uL Eos # (Auto) (0.0-0.4) X10*3/uL Baso # (Auto) (0.0-0.2) X10*3/uL Abs Immat Gran (auto) (0.00-0.03) X10*3/uL Absolute Neuts (auto) (2.0-8.3) x10*3/uL Absolute Nucleated RBC (0.0-0.012) X10*3/uL Nucleated RBC % (auto) (0.0-0.2) /100WBC Sodium 137 (135-145) mmol/L Potassium 3.2 L D (3.3-5.1) mmol/L Chloride 97 (96-108) mmol/L Carbon Dioxide 26 (22-29) mmol/L Anion Gap 17 (12-20) BUN 46 H (9-16) mg/dL Creatinine 1.82 H (0.5-1.4) mg/dL Estim Creat Clear Calc 37.8 Estimated GFR 36 Random Glucose 116 H (60-115) mg/dL Calcium 9.4 (8.4-10.2) mg/dL Total Bilirubin 2.5 H (0.0-1.0) mg/dL Direct Bilirubin 1.5 H (0.0-0.5) mg/dL AST 23 (5-37) U/L ALT 9 (0-40) U/L Alkaline Phosphatase 179 H (39-117) U/L Troponin I High Sens 128.4 H* (<3.5-35.0) ng/L B-Natriuretic Peptide 1605 H (<100) pg/mL Total Protein 6.7 (6.5-8.0) g/dL Albumin 3.9 (3.5-5.0) g/dL Lipase 76 (8-78) U/L Urine Color Urine Appearance Urine pH (5.0-8.0) Ur Specific Mather (1.005-1.025) Urine Protein (NEG-TRACE) MG/DL Urine Glucose (UA) (NEG) MG/DL Urine Ketones (NEG) MG/DL Urine Blood (NEG) Urine Nitrite (NEG) Ur Leukocyte Esterase (NEG) COVID-19 (JALIL) (Negative) COVID-19 Clin Com Imaging Data Chest x-ray: Attestation: I personally reviewed and interpreted this imaging study as follows: Radiologist's impression: Stable enlargement of cardiac silhouette, small right pleural effusion. ECG Data Attestation: I personally reviewed and interpreted this ECG as follows: Discharge Plan Discharge Clinical Impression: Congestive heart failure Patient Disposition: Admitted As Inpatient
[2021-10-20 14:20] LABS: MANUAL DIFF FLAG NO
[2021-10-20 14:24] LABS: Appearance Urine CLEAR; Color Urine YELLOW; Glucose Urine UA NEG (NEG); Leukocyte Esterase Urine NEG (NEG); Nitrite Urine NEG (NEG); Urine Blood NEG (NEG); Urine Ketones NEG (NEG); Urine Protein NEG (NEG-TRACE)
[2021-10-20 14:25] LABS: Basophils Absolute Auto 0.1 X10*3/uL (0.0-0.2); Basophils Percent Auto 0.7 % (0-2); Eosinophils Absolute Auto 0.2 X10*3/uL (0.0-0.4); Eosinophils Percent Auto 2.2 % (0-4); Imm Gran Abs Auto 0.02 X10*3/uL (0.00-0.03); Imm Gran Pct Auto 0.3 % (0.0-0.4); Lymphocytes Absolute Auto 0.5 X10*3/uL (1.2-4.9); Lymphocytes Percent Auto 7.8 % (20-40); Mean Corpuscular HGB Conc 30.8 g/dl (31.0-36.0); Mean Corpuscular Hemoglobin 22.1 pg (27.0-33.0); Mean Platelet Volume 10.1 fL (9.4-12.4); Monocytes Absolute Auto 0.9 X10*3/uL (0.1-1.2); Monocytes Percent Auto 13.3 % (2-11); Neutrophils Absolute Auto 5.2 x10*3/uL (2.0-8.3); Neutrophils Percent Auto 75.7 % (45-73); Platelet Count 182 X10*3/uL (160-400); Red Blood Count 5.42 X10*6/uL (4.60-5.80); Red Cell Distribution Width 22.3 % (11.0-16.0); White Blood Count 6.9 X10*3/uL (4.8-10.8)
[2021-10-20 14:41] LABS: Alanine Aminotransferase 9 U/L (0-40); Albumin Level 3.9 g/dL (3.5-5.0); Alkaline Phosphatase 179 U/L (39-117); Anion Gap 17 (12-20); Aspartate Amino Transferase 23 U/L (5-37); Bilirubin Direct 1.5 mg/dL (0.0-0.5); Bilirubin Total 2.5 mg/dL (0.0-1.0); Blood Urea Nitrogen 46 mg/dL (9-16); Calcium 9.4 mg/dL (8.4-10.2); Carbon Dioxide 26 mmol/L (22-29); Chloride 97 mmol/L (96-108); Creatinine Clr Calc Pharmacy 37.8; Estimated Glomerular Filt Rate 36; Glucose Random 116 mg/dL (60-115); Lipase 76 U/L (8-78); Potassium 3.2 mmol/L (3.3-5.1); Sodium 137 mmol/L (135-145); Total Protein 6.7 g/dL (6.5-8.0)
[2021-10-20 14:43] LABS: COVID-19 Test Negative (Negative)
[2021-10-20 14:48] LABS: B Type Natriuretic Peptide 1605 pg/mL (<100); Troponin-I High Sensitivity 128.4 ng/L (<3.5-35.0)
[2021-10-20] MEDS: Bumetanide 1 MG/4 ML VIAL IVPUSH ×3 (14:51→21:22)
[2021-10-20 16:17] LABS: Magnesium 2.1 mg/dL (1.6-2.6)
--- NOTE | 2021-10-20 16:28 | P.HPHOSP_ITS ---
History of Present Illness Date of Service: 10/20/21 Attending physician on admission: Chris Moe Chief Complaint: chf , rsavani 75-year-old male with multiple comorbidities including AFib, CAD, CHF, ischemic cardiomyopathy, WILLIE on CPAP, restless legs syndrome- patient came to the hospital because of weight gain of 12 lb in last 5-6 days, progressive shortness of breath from last 2 weeks getting worse and using walker to walk, drinking almost gallon of fluid every day as per patient. He says he not have PND or orthopnea Is left leg is swollen more than the right leg, denies any chest pain or abdominal pain or fever chills or nausea or vomiting or dizziness or blurred visionor cough or sputum. WILLIE and he says he is not very compliant with CPAP either. In the emergency room: WBC count: 6.9, hematocrit 12/39 Platelets 182 BMP: Sodium 137, potassium 3.2, BUN 46 creatinine 1.8, total bilirubin 2.5 direct bilirubin 1.5, ALT 9 8, AST 23 Alkaline phosphatase 179 Troponin first: 128 BNP is 1605. XR/XR chest 1V IMPRESSION: Stable enlargement of the cardiac silhouette. Small right pleural effusion. ekg: Sinus rhythm with PVCs, less likely complete heart block . ? Review of Systems Review of Systems: as above. Yes all other systems are reviewed and are nega tive [facility] Medical History Afib Atherosclerotic cardiovascular disease CAD (coronary artery disease) Cataract CHF (congestive heart failure) Chronic systolic (congestive) heart failure Ischemic cardiomyopathy Kidney stone WILLIE (obstructive sleep apnea) PAF (paroxysmal atrial fibrillation) Restless legs syndrome Sinus bradycardia Sleep apnea Typical atrial flutter Family History Father No problems noted. Mother No problems noted. Pertinent family history: brother -had Parkinson disease. Surgical History Hx of CABG Social History Alcohol intake: never Patient Tobacco Use Status: Former Tobacco user Advance Directives: Yes Advance Directives Information Provided: No Advance Directives on File: No Meds Allergies Allergy/AdvReac Type Severity Reaction Status Date / Time lisinopril [LISINOPRIL] Allergy Severe SWELLING/EDEMA,MASSIVE, Verified 09/14/21 14:41 facial edema Active Medications: Current Medications Bumetanide (Bumetanide 1 Mg/4 Ml Vial) 1 mg IVPUSH BID [facility]; Protocol Pharmacy Consult (Consult Rx Perform Med Rec) 1 each MISCELLANE ONCE PRN PRN Reason: Consult order Sodium Chloride (0.9 % Sodium Chloride Flush 3 Ml Syringe) [address] [facility] Home Medications Medication Instructions Recorded Confirmed Last Taken Type melatonin 10 mg tablet 10 mg PO BEDTIME PRN 05/30/20 08/19/21 Unknown History amiodarone 100 mg tablet 100 mg PO DAILY 10/20/21 10/20/21 10/20/21 History ascorbic acid (vitamin C) 500 mg 500 mg PO DAILY 10/20/21 10/20/21 10/20/21 History tablet carboxymethylcellulose sodium 0.5 1 drp OPHTHALMIC-LEFT TID 10/20/21 10/20/21 Unknown History % eye drops cholecalciferol (vitamin D3) 25 25 mcg PO DAILY 10/20/21 10/20/21 Unknown History mcg (1,000 unit) tablet coenzyme Q10 100 mg capsule 100 mg PO DAILY 10/20/21 10/20/21 10/20/21 History (CoQ-10) ferrous sulfate 324 mg (65 mg 324 mg PO BID 10/20/21 10/20/21 10/20/21 History iron) tablet,delayed release levothyroxine 75 mcg tablet 75 mcg PO DAILY 10/20/21 10/20/21 10/20/21 History (Levoxyl) multivitamin 1 tab PO DAILY 10/20/21 10/20/21 10/20/21 History ropinirole 0.25 mg tablet 0.5 mg PO BEDTIME 10/20/21 10/20/21 10/19/21 History sodium chloride 5 % eye drops 1 drp OPHTHALMIC-LEFT QID 10/20/21 10/20/21 Unknown History trazodone 50 mg tablet 50 mg PO BEDTIME PRN 10/20/21 10/20/21 Unknown History Physical Exam Vital Signs and Narrative: Vital Signs: Last Vital Signs Temp 97.4 F 10/20/21 13:02 Pulse 55 10/20/21 13:02 Resp 18 10/20/21 13:02 BP 102/44 L 10/20/21 13:02 Pulse Ox 94 10/20/21 13:02 BMI result Body Mass Index 31.6 Appearance: Alert.? Oriented X3.? not in distress.? Eyes: Pupils equal, round and reactive to light.? Sclera nonicteric.? ENT: Pharynx normal.? Moist mucous membranes. cvs: rrr, [id number] . res: Air entry seems be fair, slightly diminished at bases. abd: no rebound or guarding ,nt, bs present. ext pulses present , b/l leg edema left>right. neuro: axo3 , nonfocal. Results Labs CBC and Chem 7: 10/20/21 14:11 10/20/21 14:11 Labs: Laboratory Results - last 24 hr 10/20/21 10/20/21 10/20/21 14:10 14:10 14:11 MCV 72.0 L MCH 22.1 L MCHC 30.8 L RDW 22.3 H Plt Count 182 MPV 10.1 Immature Gran % (Auto) 0.3 Neut % (Auto) 75.7 H Lymph % (Auto) 7.8 L Dyer % (Auto) 13.3 H Eos % (Auto) 2.2 Baso % (Auto) 0.7 Lymph # (Auto) 0.5 L Dyer # (Auto) 0.9 Eos # (Auto) 0.2 Baso # (Auto) 0.1 Abs Immat Gran (auto) 0.02 Absolute Neuts (auto) 5.2 Absolute Nucleated RBC 0.000 Nucleated RBC % (auto) 0.0 Anion Gap Estim Creat Clear Calc Estimated GFR Random Glucose Calcium Magnesium Total Bilirubin Direct Bilirubin AST ALT Alkaline Phosphatase B-Natriuretic Peptide Total Protein Albumin Lipase Urine Color YELLOW Urine Appearance CLEAR Urine pH 6.[address] 1.010 Urine Protein NEG Urine Glucose (UA) NEG Urine Ketones NEG Urine Blood NEG Urine Nitrite NEG Ur Leukocyte Esterase NEG COVID-19 (JALIL) Negative COVID-19 Clin Com See Note 10/20/21 10/20/21 14:11 14:11 MCV MCH MCHC RDW Plt Count MPV Immature Gran % (Auto) Neut % (Auto) Lymph % (Auto) Dyer % (Auto) Eos % (Auto) Baso % (Auto) Lymph # (Auto) Dyer # (Auto) Eos # (Auto) Baso # (Auto) Abs Immat Gran (auto) Absolute Neuts (auto) Absolute Nucleated RBC Nucleated RBC % (auto) Anion Gap 17 Estim Creat Clear Calc 37.8 Estimated GFR 36 Random Glucose 116 H Calcium 9.4 Magnesium 2.1 Total Bilirubin 2.5 H Direct Bilirubin 1.5 H AST 23 ALT 9 Alkaline Phosphatase 179 H B-Natriuretic Peptide 1605 H Total Protein 6.7 Albumin 3.9 Lipase 76 Urine Color Urine Appearance Urine pH Ur Specific [address] Urine Protein Urine Glucose (UA) Urine Ketones Urine Blood Urine Nitrite Ur Leukocyte Esterase COVID-19 (JALIL) COVID-19 Clin Com Imaging Radiologist's Impressions: Impressions Chest X-Ray 10/20/21 13:13 IMPRESSION: Stable enlargement of the cardiac silhouette. Small right pleural effusion. Assessment and Plan (1) Congestive heart failure: Status: Acute (2) WILLIE (obstructive sleep apnea): Status: Acute (3) PAF (paroxysmal atrial fibrillation): Status: Acute (4) SRAVANI (acute kidney injury): Status: Acute (5) Hypokalemia: Status: Acute Plan 75-year-old male with multiple comorbidities and history of CHF possible systolic. 1. Acute on chronic says says systolic CHF exacerbation: denies any chest pain Monitor on tele troponins slightly elevated probably related to CHF, 2nd set of troponin still needs to be done. EKG reviewed with Cardiology seems like sinus rhythm with pvc , less likely complete heart block,qtc prolong. Recent echo:10/19: ?1. Mildly? to moderately reduced LV with LVEF of 40-45% with ? restrictive filling defect ? 2. Dilated RV with reduced systolic function ? 3. Moderately dilated left atrium? 4. Mild mitral regurgitation ? 5.? Moderately elevated right ventricular systolic pressure most likely due to significantly elevated right atrial pressures? ? ? 6. No gross pericardial effusion? Monitor I/O, daily weights repleted potassium, monitor magnesium level Started on IV Bumex, hold coreg and metolazone for now -boderline bloodpressure. cardio eval. 2. sravani: ? Possible component of cardiorenal versus intrarenal issue. Will add a renal ultrasound UA seems fine Nephro evaluation, monitor renal function and electrolyte closely 3. afib: currently in sinus rythem Continue Xarelto adjusted for renal function, Amiodarone 4.hlp: continue statin 5. leg edema: possible due to chf Continue IV Lasix Venous duplex ordered by ED still pending 6.RLS: continue ropinrole. 7. sleep apnea: continue cpap at night dvt prophylax : xarelto. Quality Stroke Does the patient have a stroke diagnosis?: No VTE Prior VTE?: No VTE Risk Level:: Medical - moderate - high VTE Device Contraindication: N/A - Device Ordered VTE Drug Contraindication: N/A - Med Ordered
--- NOTE | 2021-10-20 16:39 | PHA.MEDREC ---
Pharmacy Consult ? Medication Reconciliation Pharmacy has completed the medication reconciliation. Spoke with the patient who had a hand written list. [facility] also [facility] who [facility]. I compared the two and put together the most accurate list. Patient takes apple cider vinegar 400 mg daily and collagen plus daily.
[2021-10-20 16:40] VITALS: BP 118/65; PULSE 60; RESP 16; TEMP 36.4; O2SAT 97
[2021-10-20] MEDS: Potassium Chloride Packet 20 MEQ PACKET PO (16:40)
[2021-10-20 17:45] LABS: Troponin-I High Sensitivity 127.5 ng/L (<3.5-35.0)
[2021-10-20 20:10] VITALS: BP 117/71; PULSE 76; RESP 18; TEMP 36.6; O2SAT 96
[2021-10-20] MEDS: rOPINIRole HCL 0.5 MG TABLET PO (21:22)
[2021-10-20] MEDS: Ferrous Sulfate 324 MG TABLET.DR PO (21:22)
[2021-10-20] MEDS: Melatonin 3 MG TABLET 9 MG PO (21:22)
[2021-10-20] MEDS: Gabapentin 600 MG TABLET PO (21:22)
[2021-10-21] MEDS: 0.9 % Sodium Chloride Flush 3 ML SYRINGE IVFLUSH ×2 (00:10→23:53)
[2021-10-21 00:22] VITALS: BP 110/59; PULSE 56; RESP 17; O2SAT 95
[2021-10-21 06:06] VITALS: BP 110/59; PULSE 59; RESP 13; O2SAT 98
[2021-10-21 06:37] LABS: MANUAL DIFF FLAG NO
[2021-10-21 06:41] LABS: Basophils Percent Auto 0.6 % (0-2); Eosinophils Absolute Auto 0.2 X10*3/uL (0.0-0.4); Eosinophils Percent Auto 3.9 % (0-4); Hematocrit 35.5 % (42.0-52.0); Hemoglobin 10.9 g/dl (14.0-18.0); Imm Gran Abs Auto 0.02 X10*3/uL (0.00-0.03); Imm Gran Pct Auto 0.4 % (0.0-0.4); Lymphocytes Absolute Auto 0.6 X10*3/uL (1.2-4.9); Lymphocytes Percent Auto 10.8 % (20-40); Mean Corpuscular HGB Conc 30.7 g/dl (31.0-36.0); Mean Corpuscular Hemoglobin 22.1 pg (27.0-33.0); Mean Corpuscular Volume 71.9 fL (80.0-98.0); Mean Platelet Volume 9.1 fL (9.4-12.4); Monocytes Absolute Auto 0.8 X10*3/uL (0.1-1.2); Monocytes Percent Auto 15.7 % (2-11); Neutrophils Absolute Auto 3.5 x10*3/uL (2.0-8.3); Neutrophils Percent Auto 68.6 % (45-73); Platelet Count 160 X10*3/uL (160-400); Red Blood Count 4.94 X10*6/uL (4.60-5.80); Red Cell Distribution Width 21.9 % (11.0-16.0); White Blood Count 5.1 X10*3/uL (4.8-10.8)
[2021-10-21 07:07] LABS: B Type Natriuretic Peptide 2072 pg/mL (<100)
[2021-10-21] MEDS: Levothyroxine Sodium 75 MCG TABLET PO (07:13)
[2021-10-21 08:17] VITALS: BP 100/52; PULSE 55; RESP 16; O2SAT 95
[2021-10-21] MEDS: Ascorbic Acid 500 MG TABLET PO (08:28)
[2021-10-21] MEDS: Ferrous Sulfate 324 MG TABLET.DR PO ×2 (08:28→20:36)
[2021-10-21] MEDS: Cholecalciferol (Vitamin D3) 25 MCG TABLET PO (08:28)
[2021-10-21] MEDS: Atorvastatin Calcium 80 MG TABLET PO (08:28)
[2021-10-21] MEDS: Rivaroxaban 15 MG TABLET PO (08:28)
[2021-10-21] MEDS: Bumetanide 1 MG/4 ML VIAL IVPUSH ×2 (08:28→20:36)
[2021-10-21] MEDS: Amiodarone HCL 200 MG TABLET 100 MG PO (08:28)
[2021-10-21] MEDS: Multivitamin TABLET 1 TAB PO (08:28)
--- NOTE | 2021-10-21 09:29 | MHC.CM.PN ---
Addendum entered by Gladys Lloyd 10/22/21 11:41: LAST NOTE ENDED PREMATURELY: CM CONTACTED DR SILVER OFFICE.CM INFORMED PTS [facility], AND A FAX CONFIRMATION WAS RECEIVED. PT INFORMED PT WILL DC HOME TODAY WITH [facility] TO TRANSPORT Addendum entered by Gladys Lloyd 10/22/21 11:40: CM CONTQACTED DR SILVER OFFICE AND WAS INFORMED THE PTS MEDS HAD ALREADY BE[facility] TO [facility] ON 09/29 Original Note: PT REPORTS HE NOW LIVES AT [facility], AN [facility] WHERE THEY PROVIDE WEEKLY HOUSEKEEPING AND THREE MEALS PER DAY. PT REPORTS HE IS ALSO 100% [facility]CT[facility] AND SEES HIS PCP, OCTAVIO ALBA, IN [place]. PT ALSO REPORTS THE [facility] WILL BE GIVING HIM AN ELECTRIC WHEELCHAIR SOON. PT REPORTS HE HAS A NURSE, PT, AND OT THAT SEE HIM AT HOME BUT HE IS UNSURE WHAT AGENCY THEY ARE FROM. PT HAS A HCP, LIVING WILL AND POA ON FILE. PT REPORTS BEING VACCINATED AGAINST COVID-19 X 3. IMM AND [facility] RIGHTS DELIVERED, COPY SENT TO [facility] CURRENT DC PLAN IS HOME WITH RESUMPTION OF SERVICES PT WILL DRIVE HIMSELF AT DC. CM WILL CALL PTS PCP OFFICE TO OBTAIN [facility] INFORMATION PT ALSO REQUESTING ASSISTANCE WITH PHARMACY CHANGE. PT REPORTS DR [facility]VER [email or web address] [place] WHEN THE PT WENT TO GET THEM THEY WERE VERY EXPENSIVE (OVER $400). PT IS REQUESTING THAT THE MEDS BE SENT TO THE [facility] SO THAT IT WILL BE COVERED BY HIS [facility] BENEFIT AND THEY WILL DELIVER IT TO HIS HOME.
[2021-10-21 10:00] LABS: Anion Gap 16 (12-20); Blood Urea Nitrogen 41 mg/dL (9-16); Calcium 9.2 mg/dL (8.4-10.2); Carbon Dioxide 33 mmol/L (22-29); Chloride 93 mmol/L (96-108); Creatinine Clr Calc Pharmacy 42.7; Estimated Glomerular Filt Rate 42; Glucose Random 94 mg/dL (60-115); Potassium 2.7 mmol/L (3.3-5.1); Sodium 137 mmol/L (135-145)
--- NOTE | 2021-10-21 10:11 | PM.PNNEP ---
Subjective Subjective Date of Service: 10/21/21 Interval history: seen and examined Physical Exam Vital Signs: Vital Signs: Last Vital Signs Temp 97.8 F 10/20/21 20:10 Pulse 55 10/21/21 08:17 Resp 16 10/21/21 08:17 BP 100/52 L 10/21/21 08:17 Pulse Ox 95 10/21/21 08:17 BMI result Body Mass Index 31.6 Objective Data Labs CBC & Chem 7: 10/21/21 06:33 10/21/21 08:54 Labs: Laboratory Results - last 24 hr 10/20/21 10/20/21 10/20/21 14:10 14:10 14:11 WBC 6.9 RBC 5.42 Hgb 12.0 L Hct 39.0 L MCV 72.0 L MCH 22.1 L MCHC 30.8 L RDW 22.3 H Plt Count 182 MPV 10.1 Immature Gran % (Auto) 0.3 Neut % (Auto) 75.7 H Lymph % (Auto) 7.8 L [place] % (Auto) 13.3 H Eos % (Auto) 2.2 Baso % (Auto) 0.7 Lymph # (Auto) 0.5 L [place] # (Auto) 0.9 Eos # (Auto) 0.2 Baso # (Auto) 0.1 Abs Immat Gran (auto) 0.02 Absolute Neuts (auto) 5.2 Absolute Nucleated RBC 0.000 Nucleated RBC % (auto) 0.0 Sodium Potassium Chloride Carbon Dioxide Anion Gap BUN Creatinine Estim Creat Clear Calc Estimated GFR Random Glucose Calcium Magnesium Total Bilirubin Direct Bilirubin AST ALT Alkaline Phosphatase Troponin I High Sens B-Natriuretic Peptide Total Protein Albumin Lipase Urine Color YELLOW Urine Appearance CLEAR Urine pH 6.0 Ur Specific [place] 1.010 Urine Protein NEG Urine Glucose (UA) NEG Urine Ketones NEG Urine Blood NEG Urine Nitrite NEG Ur Leukocyte Esterase NEG COVID-19 (JALIL) Negative COVID-19 Clin Com See Note 10/20/21 10/20/21 10/20/21 14:11 14:11 17:00 WBC RBC Hgb Hct MCV MCH MCHC RDW Plt Count MPV Immature Gran % (Auto) Neut % (Auto) Lymph % (Auto) [place] % (Auto) Eos % (Auto) Baso % (Auto) Lymph # (Auto) [place] # (Auto) Eos # (Auto) Baso # (Auto) Abs Immat Gran (auto) Absolute Neuts (auto) Absolute Nucleated RBC Nucleated RBC % (auto) Sodium 137 Potassium 3.2 L D Chloride 97 Carbon Dioxide 26 Anion Gap 17 BUN 46 H Creatinine 1.82 H Estim Creat Clear Calc 37.8 Estimated GFR 36 Random Glucose 116 H Calcium 9.4 Magnesium 2.1 Total Bilirubin 2.5 H Direct Bilirubin 1.5 H AST 23 ALT 9 Alkaline Phosphatase 179 H Troponin I High Sens 128.4 H* 127.5 H* B-Natriuretic Peptide 1605 H Total Protein 6.7 Albumin 3.9 Lipase 76 Urine Color Urine Appearance Urine pH Ur Specific [place] Urine Protein Urine Glucose (UA) Urine Ketones Urine Blood Urine Nitrite Ur Leukocyte Esterase COVID-19 (JALIL) [employer] 10/21/21 10/21/21 10/21/21 06:33 06:33 08:54 WBC 5.1 RBC 4.94 Hgb 10.9 L Hct 35.5 L MCV 71.9 L MCH 22.1 L MCHC 30.7 L RDW 21.9 H Plt Count 160 MPV 9.1 L Immature Gran % (Auto) 0.4 Neut % (Auto) 68.6 Lymph % (Auto) 10.8 L [place] % (Auto) 15.7 H Eos % (Auto) 3.9 Baso % (Auto) 0.6 Lymph # (Auto) 0.6 L [place] # (Auto) 0.8 Eos # (Auto) 0.2 Baso # (Auto) 0.0 Abs Immat Gran (auto) 0.02 Absolute Neuts (auto) 3.5 Absolute Nucleated RBC 0.000 Nucleated RBC % (auto) 0.0 Sodium 137 Potassium 2.7 L Chloride 93 L Carbon Dioxide 33 H Anion Gap 16 BUN 41 H Creatinine 1.61 H Estim Creat Clear Calc 42.7 Estimated GFR 42 Random Glucose 94 Calcium 9.2 Magnesium Total Bilirubin Direct Bilirubin AST ALT Alkaline Phosphatase Troponin I High Sens B-Natriuretic Peptide 2072 H Total Protein Albumin Lipase Urine Color Urine Appearance Urine pH Ur Specific [place] Urine Protein Urine Glucose (UA) Urine Ketones Urine Blood Urine Nitrite Ur Leukocyte Esterase COVID-19 (JALIL) COVID-19 [employer] Procedures Date of Service Date of Service: 10/21/21 Assessment & Plan Assessment and plan (1) SRAVANI (acute kidney injury): Status: Acute (2) Heart failure with reduced ejection fraction: Status: Acute (3) Hypokalemia: Status: Acute Plan SRAVANI due to pre renal state in the setting of decompensated systolic HF urine sediment benign, no reason sto suspect AIN/AGN baseline Scr ~ 1.1 mg/dl known systolic HF LVEF 40-45% volume status above dry weight REC continue IV diuresis as tolerated by hemodynamics and kidney function replace potassium follow kidney function and electrolytes Thank you Time Spent With Patient Time: Total time spent is greater than 50% in coordination of care (as documented) at patient's floor/unit and/or counseling patient: Progress Note: Quality Stroke Does the patient have a stroke diagnosis?: No
[2021-10-21] MEDS: Potassium Chloride Packet 20 MEQ PACKET 40 MEQ PO (10:41)
--- NOTE | 2021-10-21 11:17 | P.CONCA_ITS ---
History of Present Illness History of Present Illness Date of Service: 10/21/21 Chief complaint: Chf, Mao Narrative: This is a cardiology consultation regarding congestive heart failure. He is well known to me and has been seen numerous times in the hospital as well as in the office. Last appointment was about a couple months ago. Numerous cardiac as well as other comorbidities. He has a history of coronary disease, prior bypass surgery, ischemic cardiomyopathy, atrial flutter/fibrillation, sleep apnea among others. He states that he has not been really taking his medications regularly recently. Possibly from forgetfulness but he also states that he moved his residence and he has been very busy and still settling down. In any case this led to a lot of weight gain and some heart failure type symptoms leading to hospitalization. He has been given IV diuretics and states that he is much better. His leg swelling has come down a lot. Otherwise not have any breathing difficulty at this time. No chest pain or any anginal-type concerns. Review of Systems Review of Systems: Yes all other systems are reviewed and are negative Cardiovascular: Cardiovascular: Reports as per HPI, Reports no additional cardiovascular complaints, Denies acrocyanosis, Denies cool extremities, Denies chest pain, Denies diaphoresis, Denies syncope, Denies claudication, Reports leg edema, Denies lightheadedness, Denies palpitations and Reports dyspnea Respiratory: Respiratory: Reports dyspnea Neurologic: Denies syncope Endocrine: Endocrine: Denies palpitations [facility] Past Medical History Medical History Afib Atherosclerotic cardiovascular disease CAD (coronary artery disease) Cataract CHF (congestive heart failure) Chronic systolic (congestive) heart failure Ischemic cardiomyopathy Kidney stone WILLIE (obstructive sleep apnea) PAF (paroxysmal atrial fibrillation) Restless legs syndrome Sinus bradycardia Sleep apnea Typical atrial flutter Family History Family History Father No problems noted. Mother No problems noted. Surgical History Surgical History Hx of CABG Social History Social History Alcohol intake: never Patient Tobacco Use Status: Former Tobacco user Advance Directives: Yes Advance Directives Information Provided: No Advance Directives on File: No service: Yes Current occupational status: retired Meds Allergies Allergy/AdvReac Type Severity Reaction Status Date / Time lisinopril [LISINOPRIL] Allergy Severe SWELLING/EDEMA,MASSIVE, Verified 09/14/21 14:41 facial edema Active Medications: Current Medications Amiodarone HCl (Amiodarone Hcl 200 Mg Tablet) 100 mg PO DAILY [facility] [place] [place] Last Admin: 10/21/21 08:28 Dose: 100 mg Documented by: Ascorbic Acid (Ascorbic Acid 500 Mg Tablet) 500 mg PO DAILY [facility] [place] Last Admin: 10/21/21 08:28 Dose: 500 mg Documented by: Atorvastatin Calcium (Atorvastatin Calcium 80 Mg Tablet) 80 mg PO DAILY [facility] [place] Last Admin: 10/21/21 08:28 Dose: 80 mg Documented by: Bumetanide (Bumetanide 1 Mg/4 Ml Vial) 1 mg IVPUSH BID [facility] [place]; Protocol Last Admin: 10/21/21 08:28 Dose: 1 mg Documented by: Ferrous Sulfate (Ferrous Sulfate 324 Mg Tablet.) 324 mg PO BID [facility] [place] Last Admin: 10/21/21 08:28 Dose: 324 mg Documented by: Gabapentin (Gabapentin 600 Mg Tablet) 600 mg PO BEDTIME [facility] [place] Last Admin: 10/20/21 21:22 Dose: 600 mg Documented by: Levothyroxine Sodium (Levothyroxine Sodium 75 Mcg Tablet) 75 mcg PO DAILY@0600 [facility] [place] Last Admin: 10/21/21 07:13 Dose: 75 mcg Documented by: Melatonin (Melatonin 3 Mg Tablet) 9 mg PO BEDTIME PRN PRN Reason: Insomnia Last Admin: 10/20/21 21:22 Dose: 9 mg Documented by: Multivitamins/Vitamin C (Multivitamin Tablet) 1 tab PO DAILY [facility] [place] Last Admin: 10/21/21 08:28 Dose: 1 tab Documented by: Pharmacy Consult (Consult Rx Perform Med Rec) 1 each MISCELLANE ONCE PRN PRN Reason: Consult order Rivaroxaban (Rivaroxaban 15 Mg Tablet) 15 mg PO DAILY [facility] [place] Last Admin: 10/21/21 08:28 Dose: 15 mg Documented by: Ropinirole HCl (Ropinirole Hcl 0.5 Mg Tablet) 0.5 mg PO BEDTIME [facility] [place] Last Admin: 10/20/21 21:22 Dose: 0.5 mg Documented by: Sodium Chloride (0.9 % Sodium Chloride Flush 3 Ml Syringe) 3 ml IVFLUSH QSHIFT [facility] [place] Last Admin: 10/21/21 07:36 Dose: Not Given Documented by: Sodium Chloride (Sodium Chloride 5 % Ophth Gillian 15 Ml Drpbtl) 1 drop EYE-LEFT QID [facility] [place] Last Admin: 10/21/21 08:37 Dose: Not Given Documented by: Trazodone HCl (Trazodone Hcl 50 Mg Tablet) 50 mg PO BEDTIME PRN PRN Reason: Insomnia Vitamin D (Cholecalciferol (Vitamin D3) 25 Mcg Tablet) 25 mcg PO DAILY [facility] [place] Last Admin: 10/21/21 08:28 Dose: 25 mcg Documented by: Home Medications Medication Instructions Recorded Confirmed Last Taken Type melatonin 10 mg tablet 10 mg PO BEDTIME PRN 05/30/20 10/20/21 10/19/21 History amiodarone 100 mg tablet 100 mg PO DAILY 10/20/21 10/20/21 10/20/21 History ascorbic acid (vitamin C) 500 mg 500 mg PO DAILY 10/20/21 10/20/21 10/20/21 History tablet carboxymethylcellulose sodium 0.5 1 drp OPHTHALMIC-LEFT TID 10/20/21 10/20/21 Unknown History % eye drops cholecalciferol (vitamin D3) 25 25 mcg PO DAILY 10/20/21 10/20/21 Unknown History mcg (1,000 unit) tablet coenzyme Q10 100 mg capsule 100 mg PO DAILY 10/20/21 10/20/21 10/20/21 History (CoQ-10) ferrous sulfate 324 mg (65 mg 324 mg PO BID 10/20/21 10/20/21 10/20/21 History iron) tablet,delayed release levothyroxine 75 mcg tablet 75 mcg PO DAILY 10/20/21 10/20/21 10/20/21 History (Levoxyl) multivitamin 1 tab PO DAILY 10/20/21 10/20/21 10/20/21 History ropinirole 0.25 mg tablet 0.5 mg PO BEDTIME 10/20/21 10/20/21 10/19/21 History sodium chloride 5 % eye drops 1 drp OPHTHALMIC-LEFT QID 10/20/21 10/20/21 Unknown History trazodone 50 mg tablet 50 mg PO BEDTIME PRN 10/20/21 10/20/21 Unknown History Physical Exam Vital Signs: Vital Signs: Last Vital Signs Temp 97.8 F 10/20/21 20:10 Pulse 55 10/21/21 08:17 Resp 16 10/21/21 08:17 BP 100/52 L 10/21/21 08:17 Pulse Ox 95 10/21/21 08:17 BMI result Body Mass Index 31.6 Const: General: comfortable HENMT: Other: Unremarkable Neck: Neck: Yes normal visual inspection Chest: Chest palpation & inspection: normal inspection of the chest Resp: Auscultation: crackles Cardio: Palpation: normal PMI Heart sounds: S1 normal heart sound present, S2 normal heart sound present, no gallops, no murmurs and no rubs GI: Palpation (GI): Soft to palpation Back/Spine/Pelvis: Other: unremarkable Skin: Lesions: other Neuro: General: other Extrem: General: Yes pedal edema Psych: Mental Status: other Objective Labs and Meds Result diagrams: 10/21/21 06:33 10/21/21 08:54 Lab results: Laboratory Results - last 24 hr 10/20/21 10/20/21 10/20/21 14:10 14:10 14:11 WBC 6.9 RBC 5.42 Hgb 12.0 L Hct 39.0 L MCV 72.0 L MCH 22.1 L MCHC 30.8 L RDW 22.3 H Plt Count 182 MPV 10.1 Immature Gran % (Auto) 0.3 Neut % (Auto) 75.7 H Lymph % (Auto) 7.8 L [place] % (Auto) 13.3 H Eos % (Auto) 2.2 Baso % (Auto) 0.7 Lymph # (Auto) 0.5 L [place] # (Auto) 0.9 Eos # (Auto) 0.2 Baso # (Auto) 0.1 Abs Immat Gran (auto) 0.02 Absolute Neuts (auto) 5.2 Absolute Nucleated RBC 0.000 Nucleated RBC % (auto) 0.0 Sodium Potassium Chloride Carbon Dioxide Anion Gap BUN Creatinine Estim Creat Clear Calc Estimated GFR Random Glucose Calcium Magnesium Total Bilirubin Direct Bilirubin AST ALT Alkaline Phosphatase Troponin I High Sens B-Natriuretic Peptide Total Protein Albumin Lipase Urine Color YELLOW Urine Appearance CLEAR Urine pH 6.0 Ur Specific [place] 1.010 Urine Protein NEG Urine Glucose (UA) NEG Urine Ketones NEG Urine Blood NEG Urine Nitrite NEG Ur Leukocyte Esterase NEG COVID-19 (JALIL) Negative COVID-19 Clin Com See Note 10/20/21 10/20/21 10/20/21 14:11 14:11 17:00 WBC RBC Hgb Hct MCV MCH MCHC RDW Plt Count MPV Immature Gran % (Auto) Neut % (Auto) Lymph % (Auto) [place] % (Auto) Eos % (Auto) Baso % (Auto) Lymph # (Auto) [place] # (Auto) Eos # (Auto) Baso # (Auto) Abs Immat Gran (auto) Absolute Neuts (auto) Absolute Nucleated RBC Nucleated RBC % (auto) Sodium 137 Potassium 3.2 L D Chloride 97 Carbon Dioxide 26 Anion Gap 17 BUN 46 H Creatinine 1.82 H Estim Creat Clear Calc 37.8 Estimated GFR 36 Random Glucose 116 H Calcium 9.4 Magnesium 2.1 Total Bilirubin 2.5 H Direct Bilirubin 1.5 H AST 23 ALT 9 Alkaline Phosphatase 179 H Troponin I High Sens 128.4 H* 127.5 H* B-Natriuretic Peptide 1605 H Total Protein 6.7 Albumin 3.9 Lipase 76 Urine Color Urine Appearance Urine pH Ur Specific [place] Urine Protein Urine Glucose (UA) Urine Ketones Urine Blood Urine Nitrite Ur Leukocyte Esterase COVID-19 (JALIL) COVID-19 Clin Com 10/21/21 10/21/21 10/21/21 06:33 06:33 08:54 WBC 5.1 RBC 4.94 Hgb 10.9 L Hct 35.5 L MCV 71.9 L MCH 22.1 L MCHC 30.7 L RDW 21.9 H Plt Count 160 MPV 9.1 L Immature Gran % (Auto) 0.4 Neut % (Auto) 68.6 Lymph % (Auto) 10.8 L [place] % (Auto) 15.7 H Eos % (Auto) 3.9 Baso % (Auto) 0.6 Lymph # (Auto) 0.6 L [place] # (Auto) 0.8 Eos # (Auto) 0.2 Baso # (Auto) 0.0 Abs Immat Gran (auto) 0.02 Absolute Neuts (auto) 3.5 Absolute Nucleated RBC 0.000 Nucleated RBC % (auto) 0.0 Sodium 137 Potassium 2.7 L Chloride 93 L Carbon Dioxide 33 H Anion Gap 16 BUN 41 H Creatinine 1.61 H Estim Creat Clear Calc 42.7 Estimated GFR 42 Random Glucose 94 Calcium 9.2 Magnesium 2.0 Total Bilirubin Direct Bilirubin AST ALT Alkaline Phosphatase Troponin I High Sens B-Natriuretic Peptide 2072 H Total Protein Albumin Lipase Urine Color Urine Appearance Urine pH Ur Specific [place] Urine Protein Urine Glucose (UA) Urine Ketones Urine Blood Urine Nitrite Ur Leukocyte Esterase COVID-19 (JALIL) COVID-19 Clin Com ECG Interpretation: EKG is lot of baseline artifact. Telemetry also has artifact. Underlying rhythm however is probably sinus as it is quite regular. P-waves could be very subtle. There are some PVCs. Old septal infarct. Imaging Radiologist's impression: Impressions Chest X-Ray 10/20/21 13:13 IMPRESSION: Stable enlargement of the cardiac silhouette. Small right pleural effusion. Venous Duplex 10/20/21 15:56 IMPRESSION: No DVT demonstrated in bilateral lower extremity. Bilateral calf edema is noted. Renal Ultrasound 10/20/21 16:19 IMPRESSION: Simple right-sided renal cysts not requiring further follow-up. Nonobstructive 1.3 cm calculus in the left kidney. Assessment and Plan (1) Acute on chronic systolic and diastolic heart failure, NYHA class 3: Status: Acute (2) PAF (paroxysmal atrial fibrillation): Status: Acute (3) Ischemic cardiomyopathy: Status: Acute (4) Atherosclerotic cardiovascular disease: Status: Acute (5) WILLIE (obstructive sleep apnea): Status: Acute (6) Hypokalemia: Status: Acute Plan Pertinent data reviewed. High sensitivity troponins are elevated 128 and 127. Cardiac BNP is elevated to 2072. On admission was 1605. Last year it was 1030. Labs also show low potassium at 2.7. Creatinine is 1.6. Carbon dioxide is 33. BUN is 41. Chest x-ray reported to have enlarged cardiac silhouette and right pleural effusion. Last echocardiogram from few days ago shows LVEF of 40-45% with wall motion abnormalities from his coronary disease. He also has RV systolic dysfunction. There is pulmonary hypertension as well. In the Holter from few days ago, underlying rhythm was sinus, frequent PVCs, some NSVT and short run atrial arrhythmias that could be atrial fibrillation or atrial tachycardia. Overall, this admission is primarily from medication noncompliance. Hence continue with IV diuretics with adequate replacement of electrolytes. He states that he is already feeling much better since admission. He is negative 1400 cc. Will follow up with you. Procedures Date of Service Date of Service: 10/21/21
--- NOTE | 2021-10-21 12:13 | PC.NURSE ---
Pt a/o, very pleasant, resting in the hospital bed. medicated per oct. aware of K+ 2.7. oral replacement ordered and given. Pt resting at the edge of the bed, Pt ambulated well independently. Pt using the urinal appropriately. call rosario and belongings within.
[2021-10-21] MEDS: Potassium Chloride/H20 10 MEQ/100 ML PIGGYBACK 100 MEQ IV ×2 (13:25→14:15)
--- NOTE | 2021-10-21 13:39 | CONS_ITS ---
DATE OF SERVICE: 10/21/2021 HISTORY OF PRESENT ILLNESS: This is a 75-year-old patient with normal baseline kidney function, who was admitted to the hospital with congestive heart failure and noted to have an elevation of creatinine. The patient has regained about 12 pounds over the last 5 to 6 days and has experienced worsening shortness of breath in addition to lower extremity edema. Apparently, the patient was drinking almost a gallon of fluid every day. He denies any chest pain, abdominal pain, nausea, vomiting, or diarrhea. There is no report of fever or chills. PAST MEDICAL HISTORY: Remarkable for congestive heart failure, coronary artery disease, nephrolithiasis, obstructive sleep apnea, paroxysmal atrial fibrillation, restless legs syndrome, cataract. MEDICATIONS: Medications as an outpatient reviewed and included melatonin, amiodarone, cholecalciferol, levothyroxine, multivitamin, trazodone. ALLERGIES: HE IS ALLERGIC TO LISINOPRIL. SOCIAL HISTORY: He does not smoke currently, was a smoker. FAMILY HISTORY: Negative for kidney disease. REVIEW OF SYSTEMS: 10-point review of system negative except for pertinent in History of Present Illness. PHYSICAL EXAMINATION: VITAL SIGNS: Blood pressure 100/52, heart rate 55, respiratory rate 16, temperature afebrile. CONSTITUTIONAL: Looks stated age, in no acute distress. NEUROLOGIC: Alert, awake. HEENT: Head is atraumatic, normocephalic. NECK: Supple. LUNGS: Decreased breath sounds. CARDIOVASCULAR: S1, S2. No rub. ABDOMEN: Soft, nontender. EXTREMITIES: No peripheral edema. LABORATORY DATA: Showed white count 5.1, hemoglobin is 10.9, platelet count is 160. Sodium 137, potassium 2.7, chloride 93, CO2 of 33, BUN 41, creatinine 1.61. Creatinine on admission was 1.82. Urinalysis negative for protein. IMPRESSION: 1. Acute kidney injury. 2. Heart failure with reduced ejection fraction. 3. Hypokalemia. This patient with acute kidney injury due to a prerenal state in the setting of decompensated systolic congestive heart failure. His urine sodium is essentially benign. He does not have hematuria or proteinuria and there is no reason to suspect an acute interstitial or glomerular type of injury. Obstruction is less likely on the differential. He has heart failure with reduced ejection fraction. I would continue with IV diuresis as tolerated by his hemodynamics and kidney function. We will replace his serum potassium and continue to follow closely his kidney function and electrolytes along with the medical team. Thank you for allowing me to participate in the care of this patient. Camille Wu MD GF/MODL / [id number]
--- NOTE | 2021-10-21 17:08 | P.PNIM_ITS ---
Subjective Subjective Date of Service: 10/21/21 Interval History: CHF, SRAVANI, hypokalemia Review of Systems Shortness of breath seems to be improving, denies any chest pain or abdominal pain or nausea vomiting or cough or phlegm. Physical Exam Vital Signs: Vital Signs: Last Vital Signs Temp 97.8 F 10/20/21 20:10 Pulse 55 10/21/21 08:17 Resp 16 10/21/21 08:17 BP 100/52 L 10/21/21 08:17 Pulse Ox 95 10/21/21 08:17 BMI result Body Mass Index 31.6 Appearance: Alert.? Oriented X3.? not in distress.? cvs: rrr, [id number] , no murmur res:fair air netry , slightly dimished at bases. abd: no rebound or guarding ,nt, bs present. ext pulses present , no cyanosis . neuro: axo3 , nonfocal. Objective Data Active Medications Amiodarone HCl (Amiodarone Hcl 200 Mg Tablet) 100 mg PO DAILY [facility] Last Admin: 10/21/21 08:28 Dose: 100 mg Documented by: BELLE Ascorbic Acid (Ascorbic Acid 500 Mg Tablet) 500 mg PO DAILY [facility] Last Admin: 10/21/21 08:28 Dose: 500 mg Documented by: BELLE Atorvastatin Calcium (Atorvastatin Calcium 80 Mg Tablet) 80 mg PO DAILY [facility] Last Admin: 10/21/21 08:28 Dose: 80 mg Documented by: BELLE Bumetanide (Bumetanide 1 Mg/4 Ml Vial) 1 mg IVPUSH BID [facility]; Protocol Last Admin: 10/21/21 08:28 Dose: 1 mg Documented by: BELLE Ferrous Sulfate (Ferrous Sulfate 324 Mg Tablet.) 324 mg PO BID [facility] Last Admin: 10/21/21 08:28 Dose: 324 mg Documented by: BELLE Gabapentin (Gabapentin 600 Mg Tablet) 600 mg PO BEDTIME [facility] Last Admin: 10/20/21 21:22 Dose: 600 mg Documented by: ENRIQUETA Levothyroxine Sodium (Levothyroxine Sodium 75 Mcg Tablet) 75 mcg PO DAILY@0600 [facility] Last Admin: 10/21/21 07:13 Dose: 75 mcg Documented by: LUIS FERNANDO Melatonin (Melatonin 3 Mg Tablet) 9 mg PO BEDTIME PRN PRN Reason: Insomnia Last Admin: 10/20/21 21:22 Dose: 9 mg Documented by: ENRIQUETA Multivitamins/Vitamin C (Multivitamin Tablet) 1 tab PO DAILY [facility] Last Admin: 10/21/21 08:28 Dose: 1 tab Documented by: BELLE Pharmacy Consult (Consult Rx Perform Med Rec) 1 each MISCELLANE ONCE PRN PRN Reason: Consult order Rivaroxaban (Rivaroxaban 15 Mg Tablet) 15 mg PO DAILY [facility] Last Admin: 10/21/21 08:28 Dose: 15 mg Documented by: BELLE Ropinirole HCl (Ropinirole Hcl 0.5 Mg Tablet) 0.5 mg PO BEDTIME [facility] Last Admin: 10/20/21 21:22 Dose: 0.5 mg Documented by: ENRIQUETA Sodium Chloride (0.9 % Sodium Chloride Flush 3 Ml Syringe) 3 ml IVFLUSH QSHIFT [facility] Last Admin: 10/21/21 15:39 Dose: Not Given Documented by: BELLE Non-Admin Reason: IV Running Sodium Chloride (Sodium Chloride 5 % Ophth Gillian 15 Ml Drpbtl) 1 drop EYE-LEFT QID [facility] Last Admin: 10/21/21 13:58 Dose: Not Given Documented by: BELLE Non-Admin Reason: Med Not Available Trazodone HCl (Trazodone Hcl 50 Mg Tablet) 50 mg PO BEDTIME PRN PRN Reason: Insomnia Vitamin D (Cholecalciferol (Vitamin D3) 25 Mcg Tablet) 25 mcg PO DAILY [facility] Last Admin: 10/21/21 08:28 Dose: 25 mcg Documented by: BELLE Labs CBC & Chem 7: 10/21/21 06:33 10/21/21 08:54 Labs: Laboratory Results - last 24 hr 10/21/21 10/21/21 10/21/21 06:33 06:33 08:54 MCV 71.9 L MCH 22.1 L MCHC 30.7 L RDW 21.9 H Plt Count 160 MPV 9.1 L Immature Gran % (Auto) 0.4 Neut % (Auto) 68.6 Lymph % (Auto) 10.8 L [place] % (Auto) 15.7 H Eos % (Auto) 3.9 Baso % (Auto) 0.6 Lymph # (Auto) 0.6 L [place] # (Auto) 0.8 Eos # (Auto) 0.2 Baso # (Auto) 0.0 Abs Immat Gran (auto) 0.02 Absolute Neuts (auto) 3.5 Absolute Nucleated RBC 0.000 Nucleated RBC % (auto) 0.0 Anion Gap 16 Estim Creat Clear Calc 42.7 Estimated GFR 42 Random Glucose 94 Calcium 9.2 Magnesium 2.0 B-Natriuretic Peptide 2072 H Assessment and Plan (1) Hypokalemia: Status: Acute (2) Acute on chronic systolic and diastolic heart failure, NYHA class 3: Status: Acute (3) SRAVANI (acute kidney injury): Status: Acute Plan 75-year-old male with multiple comorbidities and history of CHF possible systolic. 1. Acute on chronic says says systolic CHF exacerbation: ?denies any chest pain Monitor on tele troponins? slightly elevated probably related to CHF, 2nd set of troponin still needs to be done. EKG reviewed with Cardiology? seems like sinus rhythm with pvc , less likely complete heart block,qtc prolong. Recent echo:10/19: ?1. Mildly? to moderately reduced LV with LVEF of 40-45% with ? restrictive filling defect ? 2. Dilated RV with reduced systolic function ? 3. Moderately dilated left atrium? 4. Mild mitral regurgitation ? 5.? Moderately elevated right ventricular systolic pressure most likely due to significantly elevated right atrial pressures? ? ? 6. No gross pericardial effusion? Monitor I/O-neg 1.5 liter, daily weights repleted potassium-IV and p.o. Magnesium level normal Started on IV Bumex, hold coreg and metolazone for now-softer blood pressure. cardio eval-continue above management, replete potassium 2. sravani: Creatinine is slightly better ?? Possible component of cardiorenal versus intrarenal issue. Will add a renal ultrasound UA seems fine Nephro evaluation, monitor renal function and electrolyte closely 3. afib: currently in sinus rythem Continue Xarelto adjusted for renal function, Amiodarone 4.hlp: continue statin 5. leg edema: possible due to chf Continue IV Lasix Venous duplex ordered by ED still pending 6.RLS: continue ropinrole. 7. sleep apnea: continue cpap at night dvt prophylax : xarelto. Quality Stroke Does the patient have a stroke diagnosis?: No VTE Prior VTE?: No VTE Risk Level:: Medical - moderate - high VTE Device Contraindication: N/A - Device Ordered VTE Drug Contraindication: N/A - Med Ordered
[2021-10-21] MEDS: Gabapentin 600 MG TABLET PO (20:36)
[2021-10-21] MEDS: traZODone HCL 50 MG TABLET PO (20:36)
[2021-10-21] MEDS: rOPINIRole HCL 0.5 MG TABLET PO (20:36)
[2021-10-22 00:27] VITALS: BP 125/67; PULSE 69; RESP 15; TEMP 36.2; O2SAT 96
[2021-10-22 06:28] VITALS: BP 110/69; PULSE 68; RESP 22; TEMP 36.3; O2SAT 92
[2021-10-22] MEDS: Levothyroxine Sodium 75 MCG TABLET PO (06:33)
--- NOTE | 2021-10-22 07:47 | PC.NURSE ---
Pt received from motor room controller: Pt AOX4 and offers no complaints. NSR noted and lungs diminished. Pt abd round and non-tender. Pt ambulatory with personal walker.
[2021-10-22 08:07] LABS: Anion Gap 15 (12-20); Blood Urea Nitrogen 39 mg/dL (9-16); Calcium 9.2 mg/dL (8.4-10.2); Carbon Dioxide 32 mmol/L (22-29); Chloride 95 mmol/L (96-108); Creatinine Clr Calc Pharmacy 44.4; Estimated Glomerular Filt Rate 44; Glucose Random 90 mg/dL (60-115); Sodium 139 mmol/L (135-145)
[2021-10-22 08:11] LABS: B Type Natriuretic Peptide 1839 pg/mL (<100)
[2021-10-22 08:49] VITALS: PULSE 89; RESP 18; O2SAT 92
[2021-10-22] MEDS: Ferrous Sulfate 324 MG TABLET.DR PO (08:50)
[2021-10-22] MEDS: Atorvastatin Calcium 80 MG TABLET PO (08:50)
[2021-10-22] MEDS: Multivitamin TABLET 1 TAB PO (08:50)
[2021-10-22] MEDS: Rivaroxaban 15 MG TABLET PO (08:50)
[2021-10-22] MEDS: Amiodarone HCL 200 MG TABLET 100 MG PO (08:50)
[2021-10-22] MEDS: Cholecalciferol (Vitamin D3) 25 MCG TABLET PO (08:50)
[2021-10-22] MEDS: Ascorbic Acid 500 MG TABLET PO (08:50)
[2021-10-22] MEDS: Bumetanide 1 MG/4 ML VIAL IVPUSH (08:50)
[2021-10-22] MEDS: Sodium Chloride 5 % Ophth Sol 15 ML DRPBTL 1 DROP EYE-LEFT ×2 (08:51→14:03)
--- NOTE | 2021-10-22 08:56 | HO.PM.IMPN ---
Subjective Subjective Date of Service: 10/22/21 Interval History: chf , hypokalemia Physical Exam Vital Signs: Vital Signs: Last Vital Signs Temp 97.4 F 10/22/21 06:28 Pulse 68 10/22/21 06:28 Resp 18 10/22/21 08:49 BP 110/69 10/22/21 06:28 Pulse Ox 92 10/22/21 06:28 BMI result Body Mass Index 31.6 Objective Data Active Medications Amiodarone HCl (Amiodarone Hcl 200 Mg Tablet) 100 mg PO DAILY [facility] Last Admin: 10/22/21 08:50 Dose: 100 mg Documented by: ALEX Ascorbic Acid (Ascorbic Acid 500 Mg Tablet) 500 mg PO DAILY [facility] Last Admin: 10/22/21 08:50 Dose: 500 mg Documented by: ALEX Atorvastatin Calcium (Atorvastatin Calcium 80 Mg Tablet) 80 mg PO DAILY [facility] Last Admin: 10/22/21 08:50 Dose: 80 mg Documented by: ALEX Bumetanide (Bumetanide 1 Mg/4 Ml Vial) 1 mg IVPUSH BID [facility]; Protocol Last Admin: 10/22/21 08:50 Dose: 1 mg Documented by: ALEX Ferrous Sulfate (Ferrous Sulfate 324 Mg Tablet.) 324 mg PO BID [facility] Last Admin: 10/22/21 08:50 Dose: 324 mg Documented by: ALEX Gabapentin (Gabapentin 600 Mg Tablet) 600 mg PO BEDTIME [facility] Last Admin: 10/21/21 20:36 Dose: 600 mg Documented by: ENRIQUETA Potassium Chloride () 10 meq in 100 mls @ 100 mls/hr IV Q1H [facility] Stop: 10/22/21 10:59 Levothyroxine Sodium (Levothyroxine Sodium 75 Mcg Tablet) 75 mcg PO DAILY@0600 [facility] Last Admin: 10/22/21 06:33 Dose: 75 mcg Documented by: LUIS FERNANDO Melatonin (Melatonin 3 Mg Tablet) 9 mg PO BEDTIME PRN PRN Reason: Insomnia Last Admin: 10/20/21 21:22 Dose: 9 mg Documented by: ENRIQUETA Multivitamins/Vitamin C (Multivitamin Tablet) 1 tab PO DAILY [facility] Last Admin: 10/22/21 08:50 Dose: 1 tab Documented by: ALEX Pharmacy Consult (Consult Rx Perform Med Rec) 1 each MISCELLANE ONCE PRN PRN Reason: Consult order Potassium Chloride (Potassium Chloride Packet 20 Meq Packet) 40 meq PO ONCE ONE Stop: 10/22/21 08:55 Rivaroxaban (Rivaroxaban 15 Mg Tablet) 15 mg PO DAILY [facility] Last Admin: 10/22/21 08:50 Dose: 15 mg Documented by: ALEX Ropinirole HCl (Ropinirole Hcl 0.5 Mg Tablet) 0.5 mg PO BEDTIME [facility] Last Admin: 10/21/21 20:36 Dose: 0.5 mg Documented by: ENRIQUETA Sodium Chloride (0.9 % Sodium Chloride Flush 3 Ml Syringe) 3 ml IVFLUSH QSHIFT [facility] Last Admin: 10/22/21 07:24 Dose: Not Given Documented by: ALEX Non-Admin Reason: Med Not Available Sodium Chloride (Sodium Chloride 5 % Ophth Gillian 15 Ml Drpbtl) 1 drop EYE-LEFT QID [facility] Last Admin: 10/22/21 08:51 Dose: 1 drop Documented by: ALEX Trazodone HCl (Trazodone Hcl 50 Mg Tablet) 50 mg PO BEDTIME PRN PRN Reason: Insomnia Last Admin: 10/21/21 20:36 Dose: 50 mg Documented by: ENRIQUETA Vitamin D (Cholecalciferol (Vitamin D3) 25 Mcg Tablet) 25 mcg PO DAILY [facility] Last Admin: 10/22/21 08:50 Dose: 25 mcg Documented by: ALEX Labs CBC & Chem 7: 10/21/21 06:33 10/22/21 07:25 Labs: Laboratory Results - last 24 hr 10/21/21 10/22/21 10/22/21 08:54 07:25 07:25 Anion Gap 16 15 Estim Creat Clear Calc 42.7 44.4 Estimated GFR 42 44 Random Glucose 94 90 Calcium 9.2 9.2 Magnesium 2.0 2.0 B-Natriuretic Peptide 1839 H Quality Stroke Does the patient have a stroke diagnosis?: No VTE Prior VTE?: No VTE Risk Level:: Medical - moderate - high VTE Device Contraindication: N/A - Device Ordered VTE Drug Contraindication: N/A - Med Ordered
[2021-10-22] MEDS: Potassium Chloride Packet 20 MEQ PACKET 40 MEQ PO (10:02)
[2021-10-22] MEDS: Potassium Chloride/H20 10 MEQ/100 ML PIGGYBACK 100 MEQ IV ×2 (10:02→11:43)
[2021-10-22 11:14] VITALS: BP 119/65; PULSE 68; RESP 14; O2SAT 98
[2021-10-22 11:38] VITALS: BP 119/65; PULSE 68; O2SAT 98
--- NOTE | 2021-10-22 12:16 | MHC.CM.PN ---
Per Dr Moe, patient anticipated to d/c home with resumption of [facility]. Will ask [facility] to assist in medication compliance. Patient will transport himself home. Continue to monitor for d/c needs.
--- NOTE | 2021-10-22 12:27 | PM.PNCARD ---
Subjective Subjective Date of Service: 10/22/21 Interval history: He states that he is feeling better. No new complaints. Review of Systems Review of Systems Yes all other systems are reviewed and are negative Cardiovascular: Reports as per HPI, Reports no additional cardiovascular complaints, Denies acrocyanosis, Denies cool extremities, Denies chest pain, Denies diaphoresis, Denies syncope, Denies claudication, Reports leg edema, Denies lightheadedness, Denies palpitations and Reports dyspnea Respiratory: Reports dyspnea Denies syncope Endocrine: Denies palpitations Physical Exam Vital Signs: Last Vital Signs Temp 97.4 F 10/22/21 06:28 Pulse 68 10/22/21 11:38 Resp 14 10/22/21 11:14 BP 119/65 10/22/21 11:38 Pulse Ox 98 10/22/21 11:38 BMI result Body Mass Index 31.6 Const General: comfortable HENMT Other: Unremarkable Neck Neck: Yes normal visual inspection Chest Chest palpation & inspection: normal inspection of the chest Resp Auscultation: crackles Cardio Palpation: normal PMI Heart sounds: S1 normal heart sound present, S2 normal heart sound present, no gallops, no murmurs and no rubs GI Palpation (GI): Soft to palpation Back/Spine/Pelvis Other: unremarkable Skin Lesions: other Neuro General: other Extrem General: Yes pedal edema Psych Mental Status: other Objective Labs and Meds Result diagrams: 10/21/21 06:33 10/22/21 07:25 Lab results: Laboratory Results - last 24 hr 10/22/21 10/22/21 07:25 07:25 Sodium 139 Potassium 3.0 L Chloride 95 L Carbon Dioxide 32 H Anion Gap 15 BUN 39 H Creatinine 1.55 H Estim Creat Clear Calc 44.4 Estimated GFR 44 Random Glucose 90 Calcium 9.2 Magnesium 2.0 B-Natriuretic Peptide 1839 H Progress Note: A&P Assessment and plan (1) Acute on chronic systolic and diastolic heart failure, NYHA class 3: Status: Acute (2) PAF (paroxysmal atrial fibrillation): Status: Acute (3) Ischemic cardiomyopathy: Status: Acute (4) Atherosclerotic cardiovascular disease: Status: Acute (5) WILLIE (obstructive sleep apnea): Status: Acute (6) Hypokalemia: Status: Acute Plan Pertinent data reviewed. High sensitivity troponins are elevated 128 and 127. Cardiac BNP is elevated to 2072. On admission was 1605. Last year it was 1030. Labs also show low potassium at 2.7. Creatinine is 1.6. Carbon dioxide is 33. BUN is 41. Chest x-ray reported to have enlarged cardiac silhouette and right pleural effusion. Last echocardiogram from few days ago shows LVEF of 40-45% with wall motion abnormalities from his coronary disease. He also has RV systolic dysfunction. There is pulmonary hypertension as well. In the Holter from few days ago, underlying rhythm was sinus, frequent PVCs, some NSVT and short run atrial arrhythmias that could be atrial fibrillation or atrial tachycardia. Overall, this admission is primarily from medication noncompliance. Hence continue with diuretics with adequate replacement of electrolytes. Change to PO diuretics. He states that he is already feeling much better since admission. He is negative 1500 cc. Upon dischage, will FU. He already has scheduled appointments. Fall Risk Details Current Medications: Current Medications Amiodarone HCl (Amiodarone Hcl 200 Mg Tablet) 100 mg PO DAILY [facility] Last Admin: 10/22/21 08:50 Dose: 100 mg Documented by: Ascorbic Acid (Ascorbic Acid 500 Mg Tablet) 500 mg PO DAILY [facility] Last Admin: 10/22/21 08:50 Dose: 500 mg Documented by: Atorvastatin Calcium (Atorvastatin Calcium 80 Mg Tablet) 80 mg PO DAILY [facility] Last Admin: 10/22/21 08:50 Dose: 80 mg Documented by: Bumetanide (Bumetanide 1 Mg/4 Ml Vial) 1 mg IVPUSH BID [facility]; Protocol Last Admin: 10/22/21 08:50 Dose: 1 mg Documented by: Ferrous Sulfate (Ferrous Sulfate 324 Mg Tablet.) 324 mg PO BID [facility] Last Admin: 10/22/21 08:50 Dose: 324 mg Documented by: Gabapentin (Gabapentin 600 Mg Tablet) 600 mg PO BEDTIME [facility] Last Admin: 10/21/21 20:36 Dose: 600 mg Documented by: Levothyroxine Sodium (Levothyroxine Sodium 75 Mcg Tablet) 75 mcg PO DAILY@0600 [facility] Last Admin: 10/22/21 06:33 Dose: 75 mcg Documented by: Melatonin (Melatonin 3 Mg Tablet) 9 mg PO BEDTIME PRN PRN Reason: Insomnia Last Admin: 10/20/21 21:22 Dose: 9 mg Documented by: Multivitamins/Vitamin C (Multivitamin Tablet) 1 tab PO DAILY [facility] Last Admin: 10/22/21 08:50 Dose: 1 tab Documented by: Pharmacy Consult (Consult Rx Perform Med Rec) 1 each MISCELLANE ONCE PRN PRN Reason: Consult order Rivaroxaban (Rivaroxaban 15 Mg Tablet) 15 mg PO DAILY [facility] Last Admin: 10/22/21 08:50 Dose: 15 mg Documented by: Ropinirole HCl (Ropinirole Hcl 0.5 Mg Tablet) 0.5 mg PO BEDTIME [facility] Last Admin: 10/21/21 20:36 Dose: 0.5 mg Documented by: Sodium Chloride (0.9 % Sodium Chloride Flush 3 Ml Syringe) 3 ml IVFLUSH QSHIFT [facility] Last Admin: 10/22/21 07:24 Dose: Not Given Documented by: Sodium Chloride (Sodium Chloride 5 % Ophth Gillian 15 Ml Drpbtl) 1 drop EYE-LEFT QID [facility] Last Admin: 10/22/21 08:51 Dose: 1 drop Documented by: Trazodone HCl (Trazodone Hcl 50 Mg Tablet) 50 mg PO BEDTIME PRN PRN Reason: Insomnia Last Admin: 10/21/21 20:36 Dose: 50 mg Documented by: Vitamin D (Cholecalciferol (Vitamin D3) 25 Mcg Tablet) 25 mcg PO DAILY [facility] Last Admin: 10/22/21 08:50 Dose: 25 mcg Documented by: Time Spent With Patient Time: Total time spent is greater than 50% in coordination of care (as documented) at patient's floor/unit and/or counseling patient: Time with patient: less than 15 minutes Progress Note: Quality Stroke Does the patient have a stroke diagnosis?: No Procedures Date of Service Date of Service: 10/22/21
--- NOTE | 2021-10-22 12:49 | P.DS_ITS ---
DS: Providers Provider Date of Service: 10/22/21 Date of admission: 10/20/21 16:25 Primary care physician: Naveen Mcconnell Consults: 10/20/21 15:35 Consult to Cardiology Routine Consulting Provider: [facility] Cardiovascular Services Reason for consultation: chf Has provider been notified: No Consult to Nephrology Routine Consulting Provider: Marcelo Obrien Reason for consultation: sravani vs ckd Has provider been notified: No DS: Diagnosis Discharge Diagnosis (1) Acute on chronic systolic and diastolic heart failure, NYHA class 3: Status: Acute (2) PAF (paroxysmal atrial fibrillation): Status: Acute (3) Ischemic cardiomyopathy: Status: Acute (4) Atherosclerotic cardiovascular disease: Status: Acute (5) WILLIE (obstructive sleep apnea): Status: Acute (6) Hypokalemia: Status: Acute DS: Summary Hospital Course Hospital Course: Chief Complaint: chf , sravani 75-year-old male with multiple comorbidities including AFib, CAD, CHF, ischemic cardiomyopathy, WILLIE on CPAP, restless legs syndrome- patient came to the hospital because of weight gain of 12 lb in last 5-6 days, progressive shortness of breath from last 2 weeks getting worse and using walker to walk, drinking almost gallon? of fluid every day as per patient. He says he not have PND or orthopnea Is left leg is swollen more than the right leg, denies any chest pain or abdominal pain or fever chills or nausea or vomiting or dizziness or blurred visionor cough or sputum. WILLIE and he says he is not very compliant with CPAP either. In the emergency room: WBC count: 6.9, hematocrit 12/39 Platelets 182 BMP:? Sodium 137, potassium 3.2, BUN 46 creatinine 1.8, total bilirubin 2.5 direct bilirubin 1.5, ALT 9 8, AST 23 Alkaline phosphatase 179 Troponin first:? 128 BNP is 1605. Hospital course: Patient came to the hospital because of CHF exacerbation-for possible related to noncompliance with medications/excessive fluid intake: Patient was started on IV Lasix and seen by Cardiology-patient symptom medically improved significantly, discussed with cardio will discharge patient on home dose of Bumex. Coreg is adjusted due to softer blood pressure. Rivaroxaban also adjusted as per renal function. SRAVANI versus CKD: Patient might diuresed and patient's creatinine clearance and creatinine is improving to 1.5, renal ultrasound does not show any obstruction. Seen by Nephro: switched to p.o. diuretic and monitor renal function electrolytes closely with PCP. Patient will benefit from outpatient Nephro follow-up. Above management discussed with the patient in detail length he understand and in agreement with the above plan, time spent 50 minutes and 50% time spent on counseling. Significant findings: As above. Procedures performed: None. Treatment and response: As above. Complications: None. Time Spent with Patient Time attestation: Total time spent providing and/or coordinating discharge services: Discharge coordination time: Greater than 30 minutes Quality: Stroke Does the patient have a stroke diagnosis?: No Physical Exam Vital Signs: Vital Signs: Last Vital Signs Temp 97.4 F 10/22/21 06:28 Pulse 68 10/22/21 11:38 Resp 14 10/22/21 11:14 BP 119/65 10/22/21 11:38 Pulse Ox 98 10/22/21 11:38 BMI result Body Mass Index 31.6 Appearance: Alert.? Oriented X3.? not in distress.? Eyes: Pupils equal, round and reactive to light.? Sclera nonicteric.? ENT: Pharynx normal.? Moist mucous membranes. cvs: rrr, [id number] . res:? Air entry seems be fair, slightly diminished at bases. abd: no rebound or guarding ,nt, bs present. ext pulses present , leg swelling improved significantly neuro: axo3 , nonfocal. DS: Data Data Completed and Pending Labs on day of discharge: Laboratory Results - last 24 hr 10/22/21 10/22/21 07:25 07:25 Sodium 139 Potassium 3.0 L Chloride 95 L Carbon Dioxide 32 H Anion Gap 15 BUN 39 H Creatinine 1.55 H Estim Creat Clear Calc 44.4 Estimated GFR 44 Random Glucose 90 Calcium 9.2 Magnesium 2.0 B-Natriuretic Peptide 1839 H Additional Comments Additional comments: US/US renal BI IMPRESSION: Simple right-sided renal cysts not requiring further follow-up. ? Nonobstructive 1.3 cm calculus in the left kidney. US/US venous duplex LE BI IMPRESSION: No DVT demonstrated in bilateral lower extremity. ? Bilateral calf edema is noted. echo: Conclusions: - 1. Mildly? to moderately reduced LV with LVEF of 40-45% with ? restrictive filling defect ? 2. Dilated RV with reduced systolic function ? 3. Moderately dilated left atrium? 4. Mild mitral regurgitation ? 5.? Moderately elevated right ventricular systolic pressure most likely due to significantly elevated right atrial pressures? ? ? 5. No gross pericardial effusion ? Discharge Plan Discharge Patient Disposition: Home Health Service Discharge Diagnosis: chf excerebation , sravani Referrals: [place] [Outside] - 1 Week Naveen Mcconnell [Primary Care Provider] - 1 Week Marcelo Obrien MD [Physician] - 1 Week (follow up in 1 week) Discharge Medications: New potassium citrate 10 mEq (1,080 mg) tablet extended release 10 meq PO DAILY Qty: 10 0RF Continued atorvastatin 80 mg tablet 80 mg PO DAILY Qty: 90 3RF bumetanide 2 mg tablet 2 mg PO BID 90 Days Qty: 180 3RF Xarelto 20 mg tablet 20 mg PO DAILY Qty: 90 3RF melatonin 10 mg Tablet 10 mg PO BEDTIME PRN (Reason: Insomnia) 0RF multivitamin Tablet 1 tab PO DAILY 0RF sodium chloride 5 % drops 1 drp ophthalmic-Left QID 0RF trazodone 50 mg Tablet 50 mg PO BEDTIME PRN (Reason: Insomnia) 0RF levothyroxine [Levoxyl] 75 mcg Tablet 75 mcg PO DAILY 0RF ascorbic acid (vitamin C) 500 mg Tablet 500 mg PO DAILY 0RF carboxymethylcellulose sodium 0.5 % drops 1 drp ophthalmic-Left TID 0RF coenzyme Q10 [CoQ-10] 100 mg Capsule 100 mg PO DAILY 0RF cholecalciferol (vitamin D3) 25 mcg (1,000 unit) Tablet 25 mcg PO DAILY 0RF ferrous sulfate 324 mg (65 mg iron) Tablet,Delayed Release (Dr/Ec) 324 mg PO BID 0RF ropinirole 0.25 mg tablet 0.5 mg PO BEDTIME 0RF Rx Instructions: administer 8pm amiodarone 100 mg tablet 100 mg PO DAILY 0RF gabapentin 600 mg tablet 600 mg PO BEDTIME 30 Days Qty: 30 6RF Changed carvedilol 12.5 mg tablet 3.125 mg PO BID 90 Days Qty: 180 3RF Held metolazone 2.5 mg tablet 2.5 mg PO Q OTHER DAY Qty: 30 5RF Hold Instructions: Resume on 11/08/21. wait until seen outpatient with cardiology and nephrology Discharge Orders: Discharge Order (Routine); Ordered 10/22/21 Ordered By: Chris Moe Diet: advance to usual diet Activity on Discharge: As tolerated Stand Alone Forms: Patient Portal Discharge page Other Ambulatory Orders: Basic Metabolic Panel (Routine) Timeframe: 1 Week Facility: [facility] - Location: Laboratory Ordered By: Chris Moe Care Plan Goals: Patient came to the hospital because of CHF exacerbation-for possible related to noncompliance with medications/excessive fluid intake: Patient was started on IV Lasix and seen by Cardiology-patient symptom medically improved s ignificantly, discussed with cardio will discharge patient on home dose of Bumex. Coreg is adjusted due to softer blood pressure. Rivaroxaban also adjusted as per renal function. SRAVANI versus CKD: Patient might diuresed and patient's creatinine clearance and creatinine is improving to 1.5, renal ultrasound does not show any obstruction. Seen by Nephro: switched to p.o. diuretic and monitor renal function electrolytes closely with PCP. Patient will benefit from outpatient Nephro follow-up. CHF education given to the patient in detail length. Health Concerns: As above. Plan of Treatment: As above. Assessment: As above.
[2021-10-22 13:19] LABS: Potassium 3.9 mmol/L (3.3-5.1)
--- NOTE | 2021-10-22 14:38 | PM.PNNEP ---
Subjective Subjective Date of Service: 10/22/21 Interval history: Events noted. All recent data reviewed Physical Exam Vital Signs: Vital Signs: Last Vital Signs Temp 97.4 F 10/22/21 06:28 Pulse 68 10/22/21 11:38 Resp 14 10/22/21 11:14 BP 119/65 10/22/21 11:38 Pulse Ox 98 10/22/21 11:38 BMI result Body Mass Index 31.6 Const: General: comfortable Eyes: EOM: EOMs intact bilaterally Resp: Auscultation: diminished lung sounds Cardio: Rate: regular rate GI: Palpation (GI): Soft to palpation Neuro: General: moves all extremities Objective Data Labs CBC & Chem 7: 10/21/21 06:33 10/22/21 12:55 Labs: Laboratory Results - last 24 hr 10/22/21 10/22/21 10/22/21 07:25 07:25 12:55 Sodium 139 Potassium 3.0 L 3.9 D Chloride 95 L Carbon Dioxide 32 H Anion Gap 15 BUN 39 H Creatinine 1.55 H Estim Creat Clear Calc 44.4 Estimated GFR 44 Random Glucose 90 Calcium 9.2 Magnesium 2.0 B-Natriuretic Peptide 1839 H Procedures Date of Service Date of Service: 10/22/21 Assessment & Plan Assessment and plan (1) SRAVANI (acute kidney injury): Status: Acute Assessment and Plan: SRAVANI due to pre renal state in the setting of decompensated systolic HF Urine sediment benign, no reason sto suspect AIN/AGN Baseline Scr ~ 1.1 mg/dl Known systolic HF LVEF 40-45% volume status above dry weight Continue diuresis/supportive care Shall arrange outpatient F/U when D/Vince Time Spent With Patient Time: Total time spent is greater than 50% in coordination of care (as documented) at patient's floor/unit and/or counseling patient: Progress Note: Quality Stroke Does the patient have a stroke diagnosis?: No
--- NOTE | 2021-10-22 15:13 | PC.NURSE ---
Pt D/C from ER with instructions. Pt states understanding and denies any further questions. All I'V's removed prior to D/C. Pt wheelchaired out to ride home.
== END 2021-10-22 15:35 | disposition home health service (06) | DRG 292 ==
LOC: HO.ED 15:54 → HO.EDOVER 16:40
PROVIDERS: Emergency Medicine; Admitting Provider Internal Medicine; Emergency Provider Emergency Medicine Emergency Medical Services; PCP Internal Medicine; Visit Provider Internal Medicine
DX: I50.23 Acute on chronic systolic (congestive) heart failure (principal); N17.9 Acute kidney failure, unspecified; I47.1 Supraventricular tachycardia; I25.10 Atherosclerotic heart disease of native coronary artery without angina pectoris; I48.0 Paroxysmal atrial fibrillation; E87.6 Hypokalemia; I25.5 Ischemic cardiomyopathy; Z95.1 Presence of aortocoronary bypass graft; G47.33 Obstructive sleep apnea (adult) (pediatric); Z99.89 Dependence on other enabling machines and devices; Z91.19 Patient's noncompliance with other medical treatment and regimen; Z91.14 Patient's other noncompliance with medication regimen; Z87.891 Personal history of nicotine dependence; Z79.01 Long term (current) use of anticoagulants; Z79.890 Hormone replacement therapy; Z79.899 Other long term (current) drug therapy
CPT/HCPCS: 36415; 71045; 76775; 80048; 80076; 81003; 83690; 83735; 83880; 84132; 84484; 85025; 85027; 87635; 93005; 93970; 96374; 96375; 96376; 97161; 99285

== ENCOUNTER → 2021-11-15 09:05 | Outpatient (BNVA) | payer OTHER, SELFPAY | PROVIDERS: PCP Internal Medicine; Visit Provider Internal Medicine | DX: I50.22 Chronic systolic (congestive) heart failure (principal); I25.10 Atherosclerotic heart disease of native coronary artery without angina pectoris; I48.3 Typical atrial flutter; I48.0 Paroxysmal atrial fibrillation; G47.33 Obstructive sleep apnea (adult) (pediatric); R00.1 Bradycardia, unspecified | CPT/HCPCS: 99212 ==

== ENCOUNTER 2021-11-18 12:13 | Inpatient (IN) | payer OTHER, MEDICARE, SELFPAY ==
--- NOTE | ~2021-11-18 | XR_ITS ---
EXAMINATION: XR CHEST CLINICAL INFORMATION: Fluid overload. COMPARISON: None TECHNIQUE: Frontal view of the chest was obtained. FINDINGS: The lungs are hypoexpanded without acute pneumonic process. There are median sternotomy sutures images and jerrod from previous intervention. There are surgical jerrod in the left axilla from previous intervention. There is moderate arthritic changes bilateral AC joint. No lytic or sclerotic process seen. XR/XR chest 1V IMPRESSION: Hypoexpanded lungs without acute process.
--- NOTE | 2021-11-18 12:26 | ECG_ITS ---
Test Reason : BRADYCARDIA Blood Pressure : / mmHG Vent. Rate : 049 BPM Atrial Rate : 000 BPM P-R Int : 000 ms QRS Dur : 130 ms QT Int : 664 ms P-R-T Axes : 000 188 047 degrees QTc Int : 599 ms Possible Junctional bradycardia Right bundle branch block Septal infarct , age undetermined Abnormal ECG When compared with ECG of 20-OCT-2021 13:58, Possible Junctional bradycardia has replaced Possible Normal sinus rhythm Referred By: Reggie Nunez Electronically Signed By:RITESH ROBBINS MD
[2021-11-18 12:32] VITALS: BP 109/54; BP 109/67; PULSE 43; PULSE 46; RESP 18; TEMP 36.6; O2SAT 94; BMI 29.6
[2021-11-18 12:46] LABS: MANUAL DIFF FLAG NO
--- NOTE | 2021-11-18 12:46 | ED.GENADULT ---
HPI - General Adult General Chief complaint: Syncope Stated complaint: sully Time Seen by Provider: 11/18/21 12:26 Source: patient Mode of arrival: ambulatory Limitations: no limitations History of Present Illness HPI narrative: 75-year-old with past medical history of CHF, triple bypass, proximal atrial fibrillation, and hypokalemia male presents to the ED for lightheadedness for the past 3 days. Patient denies sensation of room spinning. Patient denies any chest pain, shortness of breath, slurred speech, facial droop, paralysis of extremities, weakness, or loss of vision. Patient states he is compliant with his medication and did not take any extra dose of Carvedilol or amiadoraone. Patient denies ever passing out Related Data Home Medications Medication Instructions Recorded Confirmed melatonin 10 mg tablet 10 mg PO BEDTIME PRN 05/30/20 11/15/21 amiodarone 100 mg tablet 100 mg PO DAILY 10/20/21 11/15/21 ascorbic acid (vitamin C) 500 mg 500 mg PO DAILY 10/20/21 11/15/21 tablet carboxymethylcellulose sodium 0.5 1 drp OPHTHALMIC-LEFT TID 10/20/21 11/15/21 % eye drops cholecalciferol (vitamin D3) 25 25 mcg PO DAILY 10/20/21 11/15/21 mcg (1,000 unit) tablet coenzyme Q10 100 mg capsule 100 mg PO DAILY 10/20/21 11/15/21 (CoQ-10) ferrous sulfate 324 mg (65 mg 324 mg PO BID 10/20/21 11/15/21 iron) tablet,delayed release levothyroxine 75 mcg tablet 75 mcg PO DAILY 10/20/21 11/15/21 (Levoxyl) multivitamin 1 tab PO DAILY 10/20/21 11/15/21 ropinirole 0.25 mg tablet 0.5 mg PO BEDTIME 10/20/21 11/15/21 sodium chloride 5 % eye drops 1 drp OPHTHALMIC-LEFT QID 10/20/21 11/15/21 trazodone 50 mg tablet 50 mg PO BEDTIME PRN 10/20/21 11/15/21 Previous Rx's Medication Instructions Recorded gabapentin 600 mg tablet 600 mg PO BEDTIME 30 Days #30 tab 08/17/21 atorvastatin 80 mg tablet 80 mg PO DAILY #90 tab 10/08/21 metolazone 2.5 mg tablet 2.5 mg PO Q OTHER DAY #30 tab 10/08/21 rivaroxaban 20 mg tablet (Xarelto) 20 mg PO DAILY #90 tab 10/08/21 potassium citrate 10 mEq (1,080 10 meq PO DAILY #10 tab 10/22/21 mg) tablet,extended release bumetanide 1 mg tablet 3 mg PO BID 90 Days #540 tab 11/15/21 carvedilol 12.5 mg tablet 12.5 mg PO BID 90 Days #180 tab 11/15/21 Allergies Allergy/AdvReac Type Severity Reaction Status Date / Time lisinopril [LISINOPRIL] Allergy Severe SWELLING/ED Verified 11/15/21 09:14 PAO Review of Systems Review of Systems: Lightheadedness Yes all other systems are reviewed and are negative [facility] Past Medical History Medical History Afib Atherosclerotic cardiovascular disease CAD (coronary artery disease) Cataract CHF (congestive heart failure) Chronic systolic (congestive) heart failure Ischemic cardiomyopathy Kidney stone WILLIE (obstructive sleep apnea) PAF (paroxysmal atrial fibrillation) Restless legs syndrome Sinus bradycardia Sleep apnea Typical atrial flutter Surgical History Hx of CABG Family History Family History Father No problems noted. Mother No problems noted. Social History Social History Alcohol intake: never Patient Tobacco Use Status: Former Tobacco user Advance Directives: Yes Advance Directives on File: Yes Advance Directives Date on File: 10/21/21 service: Yes Current occupational status: retired Physical Exam ED Vital Signs: Vital Signs - 24 hr 11/18/21 12:32 Temperature 98 F Pulse Rate 43 L Respiratory Rate 18 Blood Pressure 109/54 L Pulse Oximetry 94 BMI result Body Mass Index 29.6 Const General: cooperative, healthy appearing, comfortable, no acute distress, well developed, alert, awake and Physically active Orientation/consciousness: patient oriented x3 HENMT Head: Yes normal to inspection, Yes No palpable skull fracture present, Yes normocephalic, Yes atraumatic and No abrasion Eyes General: appearance normal, both eyes and all related structures Neck Neck: Yes normal visual inspection, Yes full ROM, Yes no lymphadenopathy, Yes no meningeal signs, Yes trachea midline, No supple, No anterior neck swelling and No tender Chest Chest palpation & inspection: normal inspection of the chest and normal palpation of entire chest wall Resp Effort & Inspection: normal respiratory effort and able to speak in complete sentences Auscultation: clear to auscultation bilaterally Cardio Jugular venous distension: no JVD Heart sounds: S1 normal heart sound present and S2 normal heart sound present GI Inspection: Yes normal to inspection and No abdominal wall ecchymosis Palpation (GI): Soft to palpation, not firm, nontender, no guarding and not rigid General: No CVA tenderness and Yes no CVA tenderness Back/Spine/Pelvis Back: no CVA tenderness, No CVA tenderness and No back tenderness Skin General skin exam: no rashes or lesions noted and elasticity normal Neuro Other: Negative slurred speech. Negative facial droop. Negative pronator drift. All extremities equal strength 5+. [id number]-py-tift rapid hand movement intact. NIH score 0 General: patient oriented x3, gait normal, no meningeal signs and CN's II-XI intact bilaterally Cranial nerves: Yes CN's II-XII intact bilaterally Extrem Other: Bilateral lower extremity swelling, pitting edema, calf tenderness l General: Yes normal to inspection and Yes full ROM Psych Appearance: grossly normal, well kempt and not disheveled Course Course Course Narrative: EKG ordered, labs ordered, and patient placed on pace pads. EMS states EKG negative for any block. Will consult Cardiology. Case discussed with Dr. Lazar who agrees for nowr patient could just be observed. Presently no indication for any atropine. Patient denies taking extra dosage of carvedilol. No indication for Glucagon Reevaluation(s) Reevaluation #1: Spoke with architectural project manager Dr. Burdick who states bradycardia probably due to medications recommend given 1 dose of glucagon due to patient being on carvedilol. He recommends patient being admitted. He recommends amiodarone and carvedilol be held. EKG negative for any blocks. Systolic blood pressure 114. Once again patient never syncopized. Time: 13:20 Reevaluation #2: Case discussed with hospitalist for admission. Xarelto will be held due to elevated INR and coags. Time: 16:24 Medical Decision Making MDM Narrative Medical decision making narrative: Bradycardia Lab Data Result diagrams: 11/18/21 12:41 11/18/21 12:41 Labs: Lab Results 11/18/21 11/18/21 11/18/21 Range/Units 12:41 12:41 12:41 WBC 4.7 L (4.8-10.8) X10*3/uL RBC 4.88 (4.60-5.80) X10*6/uL Hgb 11.2 L (14.0-18.0) g/dl Hct 37.8 L (42.0-52.0) % MCV 77.5 L (80.0-98.0) fL MCH 23.0 L (27.0-33.0) pg MCHC 29.6 L (31.0-36.0) g/dl RDW 23.8 H (11.0-16.0) % Plt Count 104 L D (160-400) X10*3/uL MPV 11.1 (9.4-12.4) fL Immature Gran % (Auto) 0.2 (0.0-0.4) % Neut % (Auto) 68.3 (45-73) % Lymph % (Auto) 12.6 L (20-40) % Leslie % (Auto) 15.1 H (2-11) % Eos % (Auto) 3.2 (0-4) % Baso % (Auto) 0.6 (0-2) % Lymph # (Auto) 0.6 L (1.2-4.9) X10*3/uL Leslie # (Auto) 0.7 (0.1-1.2) X10*3/uL Eos # (Auto) 0.2 (0.0-0.4) X10*3/uL Baso # (Auto) 0.0 (0.0-0.2) X10*3/uL Abs Immat Gran (auto) 0.01 (0.00-0.03) X10*3/uL Absolute Neuts (auto) 3.2 (2.0-8.3) x10*3/uL Absolute Nucleated RBC 0.000 (0.0-0.012) X10*3/uL Nucleated RBC % (auto) 0.0 (0.0-0.2) /100WBC PT (9.9-13.0) SEC INR (0.9-1.1) APTT (24.1-38.0) SEC Sodium 138 (135-145) mmol/L Potassium 3.3 (3.3-5.1) mmol/L Chloride 105 (96-108) mmol/L Carbon Dioxide 21 L (22-29) mmol/L Anion Gap 15 (12-20) BUN 37 H (9-16) mg/dL Creatinine 1.81 H (0.5-1.4) mg/dL Estim Creat Clear Calc 36.8 Estimated GFR 37 Random Glucose 103 (60-115) mg/dL Calcium 8.2 L D (8.4-10.2) mg/dL Magnesium 2.1 (1.6-2.6) mg/dL Total Bilirubin 2.2 H (0.0-1.0) mg/dL AST 20 (5-37) U/L ALT 13 (0-40) U/L Alkaline Phosphatase 184 H (39-117) U/L Troponin I High Sens 42.7 H D (<3.5-35.0) ng/L B-Natriuretic Peptide 1849 H (<100) pg/mL Total Protein 5.8 L (6.5-8.0) g/dL Albumin 3.4 L (3.5-5.0) g/dL TSH 7.01 H (0.32-4.0) uIU/mL Free T4 1.31 (0.71-1.85) ng/dL COVID-19 (JALIL) (Negative) COVID-19 Clin Com 11/18/21 11/18/21 Range/Units 12:41 12:41 WBC (4.8-10.8) X10*3/uL RBC (4.60-5.80) X10*6/uL Hgb (14.0-18.0) g/dl Hct (42.0-52.0) % MCV (80.0-98.0) fL MCH (27.0-33.0) pg MCHC (31.0-36.0) g/dl RDW (11.0-16.0) % Plt Count (160-400) X10*3/uL MPV (9.4-12.4) fL Immature Gran % (Auto) (0.0-0.4) % Neut % (Auto) (45-73) % Lymph % (Auto) (20-40) % Leslie % (Auto) (2-11) % Eos % (Auto) (0-4) % Baso % (Auto) (0-2) % Lymph # (Auto) (1.2-4.9) X10*3/uL Leslie # (Auto) (0.1-1.2) X10*3/uL Eos # (Auto) (0.0-0.4) X10*3/uL Baso # (Auto) (0.0-0.2) X10*3/uL Abs Immat Gran (auto) (0.00-0.03) X10*3/uL Absolute Neuts (auto) (2.0-8.3) x10*3/uL Absolute Nucleated RBC (0.0-0.012) X10*3/uL Nucleated RBC % (auto) (0.0-0.2) /100WBC PT 99.1 H (9.9-13.0) SEC INR 8.3 H* (0.9-1.1) APTT 56.0 H (24.1-38.0) SEC Sodium (135-145) mmol/L Potassium (3.3-5.1) mmol/L Chloride (96-108) mmol/L Carbon Dioxide (22-29) mmol/L Anion Gap (12-20) BUN (9-16) mg/dL Creatinine (0.5-1.4) mg/dL Estim Creat Clear Calc Estimated GFR Random Glucose (60-115) mg/dL Calcium (8.4-10.2) mg/dL Magnesium (1.6-2.6) mg/dL Total Bilirubin (0.0-1.0) mg/dL AST (5-37) U/L ALT (0-40) U/L Alkaline Phosphatase (39-117) U/L Troponin I High Sens (<3.5-35.0) ng/L B-Natriuretic Peptide (<100) pg/mL Total Protein (6.5-8.0) g/dL Albumin (3.5-5.0) g/dL TSH (0.32-4.0) uIU/mL Free T4 (0.71-1.85) ng/dL COVID-19 (JALIL) Negative (Negative) COVID-19 Clin Com See Note ECG Data Interpretation: Wide QRS rhythm. Right bundle branch block. Ventricular rate 49. QRS 130. QTC 599 Critical Care Time Critical Care Time Critical Care Time: Yes Total Critical Care Time: 60 Attestation: Spoke with architectural project manager Dr. Burdick. Patient placed on pacer pads. Patient given glucagon. EKG ordered. Patient admitted Discharge Plan Discharge Clinical Impression: Bradycardia
[2021-11-18 12:50] LABS: Basophils Percent Auto 0.6 % (0-2); Eosinophils Absolute Auto 0.2 X10*3/uL (0.0-0.4); Eosinophils Percent Auto 3.2 % (0-4); Hematocrit 37.8 % (42.0-52.0); Hemoglobin 11.2 g/dl (14.0-18.0); Imm Gran Abs Auto 0.01 X10*3/uL (0.00-0.03); Imm Gran Pct Auto 0.2 % (0.0-0.4); Lymphocytes Absolute Auto 0.6 X10*3/uL (1.2-4.9); Lymphocytes Percent Auto 12.6 % (20-40); Mean Corpuscular HGB Conc 29.6 g/dl (31.0-36.0); Mean Corpuscular Volume 77.5 fL (80.0-98.0); Mean Platelet Volume 11.1 fL (9.4-12.4); Monocytes Absolute Auto 0.7 X10*3/uL (0.1-1.2); Monocytes Percent Auto 15.1 % (2-11); Neutrophils Absolute Auto 3.2 x10*3/uL (2.0-8.3); Neutrophils Percent Auto 68.3 % (45-73); Platelet Count 104 X10*3/uL (160-400); Red Blood Count 4.88 X10*6/uL (4.60-5.80); Red Cell Distribution Width 23.8 % (11.0-16.0); White Blood Count 4.7 X10*3/uL (4.8-10.8)
[2021-11-18] MEDS: 0.9 % Sodium Chloride 1,000 ML 999 ML IV (12:50)
[2021-11-18 13:00] LABS: Prothrombin Time 99.1 SEC (9.9-13.0)
[2021-11-18 13:03] LABS: COVID-19 Test Negative (Negative); IDNOW Serial# 16C4AD1C
[2021-11-18 13:05] LABS: Alanine Aminotransferase 13 U/L (0-40); Albumin Level 3.4 g/dL (3.5-5.0); Alkaline Phosphatase 184 U/L (39-117); Anion Gap 15 (12-20); Aspartate Amino Transferase 20 U/L (5-37); Bilirubin Total 2.2 mg/dL (0.0-1.0); Blood Urea Nitrogen 37 mg/dL (9-16); Calcium 8.2 mg/dL (8.4-10.2); Carbon Dioxide 21 mmol/L (22-29); Chloride 105 mmol/L (96-108); Creatinine Clr Calc Pharmacy 36.8; Estimated Glomerular Filt Rate 37; Glucose Random 103 mg/dL (60-115); Magnesium 2.1 mg/dL (1.6-2.6); Potassium 3.3 mmol/L (3.3-5.1); Sodium 138 mmol/L (135-145); Total Protein 5.8 g/dL (6.5-8.0)
[2021-11-18 13:10] LABS: B Type Natriuretic Peptide 1849 pg/mL (<100); Troponin-I High Sensitivity 42.7 ng/L (<3.5-35.0)
[2021-11-18 13:22] LABS: INTERNATIONAL NORM RATIO 8.3 (0.9-1.1)
[2021-11-18 13:26] LABS: TSH reflex Free T4 7.01 uIU/mL (0.32-4.0)
[2021-11-18 14:28] LABS: Free T4 (Free Thyroxine) 1.31 ng/dL (0.71-1.85)
--- NOTE | 2021-11-18 15:12 | PM.IMHP ---
History of Present Illness Date of Service: 11/18/21 Attending physician on admission: Sia Lee Chief Complaint: lightheadedness/ bradycardia 75-year-old gentleman with past medical history significant for atrial fibrillation, coronary artery disease, congestive heart failure with reduced EF, obstructive sleep apnea on CPAP, restless leg syndrome patient was recently discharged from [facility] on October 22 after being treated for SRAVANI and acute on chronic congestive heart failure, patient presented to [facility] ER on this occasion due to symptoms of lightheadedness generalized weakness fatigue of few days duration, he denies associated chest pain no palpitations no syncope no fevers no chills no cough or here in retract infection, in the emergency room EKG showed slow AFib in 40s, electrolytes showed borderline low potassium and elevated creatinine of 1.8, chest x-ray showed hyperexpanded lungs without acute process, patient treated in Emergency Room with glucagon and IV fluid pacer pad placed, patient now being admitted to [facility] with symptomatic bradycardia. Review of Systems Review of Systems: General no headache ,no dizziness, no fever chills. CVS no chest pain, no palpitation. Respiratory no cough, no sputum production no respiratory distress, no PND, no orthopnea. Gastrointestinal no nausea, no vomiting, no abdominal pain Skin no rash Yes all other systems are reviewed and are negative [facility] Medical History Afib Atherosclerotic cardiovascular disease CAD (coronary artery disease) Cataract CHF (congestive heart failure) Chronic systolic (congestive) heart failure Ischemic cardiomyopathy Kidney stone WILLIE (obstructive sleep apnea) PAF (paroxysmal atrial fibrillation) Restless legs syndrome Sinus bradycardia Sleep apnea Typical atrial flutter Family History Father No problems noted. Mother No problems noted. Surgical History Hx of CABG Social History Alcohol intake: never Patient Tobacco Use Status: Former Tobacco user Advance Directives: Yes Advance Directives on File: Yes Advance Directives Date on File: 10/21/21 service: Yes Current occupational status: retired Meds Allergies Allergy/AdvReac Type Severity Reaction Status Date / Time lisinopril [LISINOPRIL] Allergy Severe SWELLING/ED Verified 11/15/21 09:14 PAO Active Medications: Current Medications Acetaminophen (Acetaminophen 325 Mg Tablet) 650 mg PO Q6H PRN PRN Reason: Pain, Mild (Pain Scale 1-3) Ondansetron HCl (Ondansetron Hcl 4 Mg/2 Ml Vial) 4 mg IVPUSH Q8H PRN PRN Reason: Nausea and Vomiting Sodium Chloride (0.9 % Sodium Chloride Flush 3 Ml Syringe) [facility] Medications Medication Instructions Recorded Confirmed Last Taken Type melatonin 10 mg tablet 10 mg PO BEDTIME PRN 05/30/20 11/15/21 10/19/21 History amiodarone 100 mg tablet 100 mg PO DAILY 10/20/21 11/15/21 10/20/21 History ascorbic acid (vitamin C) 500 mg 500 mg PO DAILY 10/20/21 11/15/21 10/20/21 History tablet carboxymethylcellulose sodium 0.5 1 drp OPHTHALMIC-LEFT TID 10/20/21 11/15/21 Unknown History % eye drops cholecalciferol (vitamin D3) 25 25 mcg PO DAILY 10/20/21 11/15/21 Unknown History mcg (1,000 unit) tablet coenzyme Q10 100 mg capsule 100 mg PO DAILY 10/20/21 11/15/21 10/20/21 History (CoQ-10) ferrous sulfate 324 mg (65 mg 324 mg PO BID 10/20/21 11/15/21 10/20/21 History iron) tablet,delayed release levothyroxine 75 mcg tablet 75 mcg PO DAILY 10/20/21 11/15/21 10/20/21 History (Levoxyl) multivitamin 1 tab PO DAILY 10/20/21 11/15/21 10/20/21 History ropinirole 0.25 mg tablet 0.5 mg PO BEDTIME 10/20/21 11/15/21 10/19/21 History sodium chloride 5 % eye drops 1 drp OPHTHALMIC-LEFT QID 10/20/21 11/15/21 Unknown History trazodone 50 mg tablet 50 mg PO BEDTIME PRN 10/20/21 11/15/21 Unknown History Physical Exam Vital Signs and Narrative: Vital Signs: Last Vital Signs Temp 98 F 11/18/21 12:32 Pulse 43 L 11/18/21 12:32 Resp 18 11/18/21 12:32 BP 109/54 L 11/18/21 12:32 Pulse Ox 94 11/18/21 12:32 BMI result Body Mass Index 29.6 Const: Other: General awake alert x3,in no acute distress. HEENT pupil equal round reactive to light and accommodation Neck is supple no JVD. CVS slow heart rate Respiratory lungs clear to auscultation, no respiratory distress, no wheeze, no rhonchi. Gastrointestinal abdomen soft, nontender, bowel sounds audible, no guarding , no rigidity. Extremities bilateral edema left greater than right, pulses present Neuro nonfocal Skin no rash Psych appropriate affect Results Labs CBC and Chem 7: 11/18/21 12:41 11/18/21 12:41 Labs: Laboratory Results - last 24 hr 11/18/21 11/18/21 11/18/21 12:41 12:41 12:41 MCV 77.5 L MCH 23.0 L MCHC 29.6 L RDW 23.8 H Plt Count 104 L D MPV 11.1 Immature Gran % (Auto) 0.2 Neut % (Auto) 68.3 Lymph % (Auto) 12.6 L Hardeman % (Auto) 15.1 H Eos % (Auto) 3.2 Baso % (Auto) 0.6 Lymph # (Auto) 0.6 L Hardeman # (Auto) 0.7 Eos # (Auto) 0.2 Baso # (Auto) 0.0 Abs Immat Gran (auto) 0.01 Absolute Neuts (auto) 3.2 Absolute Nucleated RBC 0.000 Nucleated RBC % (auto) 0.0 PT INR APTT Anion Gap 15 Estim Creat Clear Calc 36.8 Estimated GFR 37 Random Glucose 103 Calcium 8.2 L D Magnesium 2.1 Total Bilirubin 2.2 H AST 20 ALT 13 Alkaline Phosphatase 184 H B-Natriuretic Peptide 1849 H Total Protein 5.8 L Albumin 3.4 L TSH 7.01 H Free T4 1.31 COVID-19 (JALIL) COVID-19 Clin Com 11/18/21 11/18/21 12:41 12:41 MCV MCH MCHC RDW Plt Count MPV Immature Gran % (Auto) Neut % (Auto) Lymph % (Auto) Hardeman % (Auto) Eos % (Auto) Baso % (Auto) Lymph # (Auto) Hardeman # (Auto) Eos # (Auto) Baso # (Auto) Abs Immat Gran (auto) Absolute Neuts (auto) Absolute Nucleated RBC Nucleated RBC % (auto) PT 99.1 H INR 8.3 H* APTT 56.0 H Anion Gap Estim Creat Clear Calc Estimated GFR Random Glucose Calcium Magnesium Total Bilirubin AST ALT Alkaline Phosphatase B-Natriuretic Peptide Total Protein Albumin TSH Free T4 COVID-19 (JALIL) Negative COVID-19 Clin Com See Note Imaging Radiologist's Impressions: Impressions Chest X-Ray 11/18/21 14:20 IMPRESSION: Hypoexpanded lungs without acute process. Assessment and Plan (1) SRAVANI (acute kidney injury): Status: Acute (2) Restless legs syndrome: Status: Acute (3) Chronic systolic (congestive) heart failure: Status: Acute (4) WILLIE (obstructive sleep apnea): Status: Acute (5) Symptomatic bradycardia: Status: Acute Plan 75-year-old gentleman with past medical history significant for paroxysmal atrial fibrillation, on Coreg, amiodarone and Xarelto presented to [facility] due to symptoms of lightheadedness generalized weakness and diagnosed to have symptomatic bradycardia with heart rate in 40s also with elevated creatinine,patient will be admitted for further evaluation and treatment. Symptomatic bradycardia EKG suggestive of slow AFib since patient is symptomatic will hold Coreg and amiodarone, likely medication related, admit to telemetry unit will keep potassium greater than 4, magnesium is 2.1 continue external pacer, hold further IV fluid due to history of CHF mildly elevated troponin likely due to SRAVANI patient denies chest pain obtain cardiology eval acute kidney injury likely due to decreased cardiac output underwent recent renal workup including renal ultrasound that was unremarkable follow renal function hold nephrotoxins chronic systolic congestive heart failure no acute exacerbation chronic Denise elevated BNP unchanged from last discharge 184, chronic bilateral leg edema, recent bilateral lower extremity Doppler study negative for DVT. coagulopathy with INR 8.3, no active bleeding noted, on Xarelto, will hold Xarelto and recheck INR at a.m. hypothyroidism TSH at 7.01, free T4 1.31, likely subclinical hypothyroidism will continue Synthroid hyperlipidemia continue statins code status full code DVT prophylaxis on Xarelto patient will need to night inpatient stay due to symptomatic bradycardia requiring tele monitoring and acute renal injury. Quality Stroke Does the patient have a stroke diagnosis?: No VTE Prior VTE?: No VTE Risk Level:: Medical - moderate - high VTE Device Contraindication: Treatment Not Indicated VTE Drug Contraindication: N/A - Med Ordered
[2021-11-18] MEDS: 0.9 % Sodium Chloride Flush 3 ML SYRINGE IVFLUSH ×2 (17:36→19:55)
[2021-11-18 17:46] VITALS: BP 113/60; PULSE 50; RESP 18; O2SAT 98
[2021-11-18 18:58] VITALS: BP 106/58; PULSE 45; RESP 20; TEMP 36.1; O2SAT 92
[2021-11-18 19:00] VITALS: BMI 29.6
[2021-11-19] VITALS: BP 113/50; PULSE 45; RESP 18; TEMP 36.2; O2SAT 94
[2021-11-19 03:54] VITALS: BP 118/72; PULSE 44; RESP 17; TEMP 36.3; O2SAT 90
[2021-11-19 07:11] VITALS: BP 103/65; PULSE 54; RESP 20; TEMP 36.2; O2SAT 94
[2021-11-19] MEDS: 0.9 % Sodium Chloride Flush 3 ML SYRINGE IVFLUSH ×3 (07:34→20:24)
[2021-11-19 08:12] LABS: Hematocrit 38.4 % (42.0-52.0); Hemoglobin 11.5 g/dl (14.0-18.0); Mean Corpuscular HGB Conc 29.9 g/dl (31.0-36.0); Mean Corpuscular Hemoglobin 22.9 pg (27.0-33.0); Mean Corpuscular Volume 76.5 fL (80.0-98.0); Platelet Count 119 X10*3/uL (160-400); Red Blood Count 5.02 X10*6/uL (4.60-5.80); Red Cell Distribution Width 23.9 % (11.0-16.0); White Blood Count 4.7 X10*3/uL (4.8-10.8)
[2021-11-19 08:17] LABS: INTERNATIONAL NORM RATIO 4.8 (0.9-1.1)
[2021-11-19 08:42] LABS: Anion Gap 15 (12-20); Blood Urea Nitrogen 39 mg/dL (9-16); Calcium 8.9 mg/dL (8.4-10.2); Carbon Dioxide 26 mmol/L (22-29); Chloride 103 mmol/L (96-108); Creatinine Clr Calc Pharmacy 38.8; Estimated Glomerular Filt Rate 39; Glucose Random 105 mg/dL (60-115); Potassium 3.7 mmol/L (3.3-5.1); Sodium 140 mmol/L (135-145)
[2021-11-19] MEDS: Levothyroxine Sodium 75 MCG TABLET PO (08:47)
[2021-11-19] MEDS: Multivitamin TABLET 1 TAB PO (08:47)
[2021-11-19] MEDS: Cholecalciferol (Vitamin D3) 25 MCG TABLET PO (08:47)
[2021-11-19] MEDS: Ascorbic Acid 500 MG TABLET PO (08:47)
[2021-11-19 11:18] VITALS: BP 114/75; PULSE 57; RESP 20; TEMP 35.7; O2SAT 96
[2021-11-19] MEDS: Artificial Tears 15 ML DROPS 1 DROP EYE-LEFT ×4 (11:28→20:24)
--- NOTE | 2021-11-19 12:02 | P.PNIM_ITS ---
Subjective Subjective Date of Service: 11/19/21 Interval History: offers no acute complaints denies chest pain, no palpitations no lightheadedness or dizziness, requesting to ambulate, tele monitor shows persistent bradycardia mid 40s to low 50 range, systolic blood pressure in low 100s, patient denies shortness of breath, no PND, no orthopnea. Review of Systems Review of Systems: Yes all other systems are reviewed and are negative Physical Exam Vital Signs: Vital Signs: Last Vital Signs Temp 96.2 F L 11/19/21 11:18 Pulse 57 11/19/21 11:18 Resp 20 11/19/21 11:18 BP 114/75 11/19/21 11:18 Pulse Ox 96 11/19/21 11:18 BMI result Body Mass Index 29.6 Const: Other: General? awake alert x3,in no acute distress. Neck supple no JVD. CVS ? slow heart rate Respiratory lungs clear to auscultation, no respiratory distress, no wheeze, no rhonchi. Gastrointestinal abdomen soft, nontender, bowel sounds audible, no guarding , no rigidity. Extremities? bilateral edema left greater than right, Chronic unchanged, distal pulses present Neuro nonfocal Skin no rash Psych appropriate affect Objective Data Active Medications Acetaminophen (Acetaminophen 325 Mg Tablet) 650 mg PO Q6H PRN PRN Reason: Pain, Mild (Pain Scale 1-3) Artificial Tears (Artificial Tears 15 Ml Drops) 1 drop EYE-LEFT QID [facility] Last Admin: 11/19/21 11:28 Dose: 1 drop Documented by: TUSHAR Ascorbic Acid (Ascorbic Acid 500 Mg Tablet) 500 mg PO DAILY [facility] Last Admin: 11/19/21 08:47 Dose: 500 mg Documented by: TUSHAR Atorvastatin Calcium (Atorvastatin Calcium 80 Mg Tablet) 80 mg PO BEDTIME [facility] Gabapentin (Gabapentin 600 Mg Tablet) 600 mg PO BEDTIME [facility] Levothyroxine Sodium (Levothyroxine Sodium 75 Mcg Tablet) 75 mcg PO DAILY@0600 [facility] Last Admin: 11/19/21 08:47 Dose: 75 mcg Documented by: TUSHAR Melatonin (Melatonin 3 Mg Tablet) 9 mg PO BEDTIME PRN PRN Reason: Insomnia Multivitamins/Vitamin C (Multivitamin Tablet) 1 tab PO DAILY [facility] Last Admin: 11/19/21 08:47 Dose: 1 tab Documented by: TUSHAR Ondansetron HCl (Ondansetron Hcl 4 Mg/2 Ml Vial) 4 mg IVPUSH Q8H PRN PRN Reason: Nausea and Vomiting Ropinirole HCl (Ropinirole Hcl 0.25 Mg Tablet) 0.5 mg PO BEDTIME [facility] Sodium Chloride (0.9 % Sodium Chloride Flush 3 Ml Syringe) 3 ml IVFLUSH QSHIFT [facility] Last Admin: 11/19/21 07:34 Dose: 3 ml Documented by: TUSHAR Trazodone HCl (Trazodone Hcl 50 Mg Tablet) 50 mg PO BEDTIME PRN PRN Reason: Insomnia Vitamin D (Cholecalciferol (Vitamin D3) 25 Mcg Tablet) 25 mcg PO DAILY [facility] Last Admin: 11/19/21 08:47 Dose: 25 mcg Documented by: TUSHAR Labs CBC & Chem 7: 11/19/21 07:55 11/19/21 07:55 Labs: Laboratory Results - last 24 hr 11/18/21 11/18/21 11/18/21 12:41 12:41 12:41 MCV 77.5 L MCH 23.0 L MCHC 29.6 L RDW 23.8 H Plt Count 104 L D MPV 11.1 Immature Gran % (Auto) 0.2 Neut % (Auto) 68.3 Lymph % (Auto) 12.6 L [place] % (Auto) 15.1 H Eos % (Auto) 3.2 Baso % (Auto) 0.6 Lymph # (Auto) 0.6 L [place] # (Auto) 0.7 Eos # (Auto) 0.2 Baso # (Auto) 0.0 Abs Immat Gran (auto) 0.01 Absolute Neuts (auto) 3.2 Absolute Nucleated RBC 0.000 Nucleated RBC % (auto) 0.0 PT INR APTT Anion Gap 15 Estim Creat Clear Calc 36.8 Estimated GFR 37 Random Glucose 103 Calcium 8.2 L D Magnesium 2.1 Total Bilirubin 2.2 H AST 20 ALT 13 Alkaline Phosphatase 184 H B-Natriuretic Peptide 1849 H Total Protein 5.8 L Albumin 3.4 L TSH 7.01 H Free T4 1.31 COVID-19 ([facility]) COVID-19 Clin Com 11/18/21 11/18/21 11/19/21 12:41 12:41 07:55 MCV MCH MCHC RDW Plt Count MPV Immature Gran % (Auto) Neut % (Auto) Lymph % (Auto) [place] % (Auto) Eos % (Auto) Baso % (Auto) Lymph # (Auto) [place] # (Auto) Eos # (Auto) Baso # (Auto) Abs Immat Gran (auto) Absolute Neuts (auto) Absolute Nucleated RBC Nucleated RBC % (auto) PT 99.1 H 57.0 H INR 8.3 H* 4.8 H D APTT 56.0 H Anion Gap Estim Creat Clear Calc Estimated GFR Random Glucose Calcium Magnesium Total Bilirubin AST ALT Alkaline Phosphatase B-Natriuretic Peptide Total Protein Albumin TSH Free T4 COVID-19 ([facility]) Negative COVID-19 Clin Com See Note 11/19/21 11/19/21 07:55 07:55 MCV 76.5 L MCH 22.9 L MCHC 29.9 L RDW 23.9 H Plt Count 119 L MPV Not Reportable Immature Gran % (Auto) Neut % (Auto) Lymph % (Auto) [place] % (Auto) Eos % (Auto) Baso % (Auto) Lymph # (Auto) [place] # (Auto) Eos # (Auto) Baso # (Auto) Abs Immat Gran (auto) Absolute Neuts (auto) Absolute Nucleated RBC 0.000 Nucleated RBC % (auto) 0.0 PT INR APTT Anion Gap 15 Estim Creat Clear Calc 38.8 Estimated GFR 39 Random Glucose 105 Calcium 8.9 D Magnesium Total Bilirubin AST ALT Alkaline Phosphatase B-Natriuretic Peptide Total Protein Albumin TSH Free T4 COVID-19 ([facility]) COVID-19 Clin Com Assessment and Plan (1) Symptomatic bradycardia: Status: Acute (2) SRAVANI (acute kidney injury): Status: Acute (3) Periodic limb movement disorder: Status: Acute (4) Chronic systolic (congestive) heart failure: Status: Acute (5) WILLIE (obstructive sleep apnea): Status: Acute Plan 75-year-old gentleman with past medical history significant for paroxysmal atrial fibrillation, on Coreg, amiodarone and Xarelto presented to [facility] due to symptoms of lightheadedness generalized weakness and diagnosed to have symptomatic bradycardia with heart rate in 40s? also with elevated cre atinine,patient will be admitted for further evaluation and treatment. ?Symptomatic bradycardia feels better this am, tele monitor shows persistent bradycardia ?EKG suggestive of slow AFib will continue to hold Coreg and amiodarone, likely medication related, potassium 3.7 ,magnesium is 2.1, will replace potassium to bring level to 4 ?continue external pacer, hold further IV fluid due to history of CHF ?mildly elevated troponin improved since last month, likely due to SRAVANI patient, denies chest pain ?await cardiology input acute kidney injury likely due to decreased cardiac output/ diuretics underwent recent renal workup including renal ultrasound that was unremarkable follow renal function, hold diuretics creatinine improved from 1.8-1.7 follow BMP ?chronic systolic congestive heart failure no acute exacerbation chronically elevated BNP unchanged from last discharge 1848, chronic bilateral leg edema, recent bilateral lower extremity Doppler study negative for DVT. patient appears euvolemic hold diuretics and follow with cardio ?coagulopathy with INR 8.3 on admission improved to 4.8, no active bleeding noted, on Xarelto, will resume Xarelto ?hypothyroidism TSH at 7.01, free T4 1.31, likely subclinical hypothyroidism will continue Synthroid current dose, recommend follow-up TSH in 6 weeks hyperlipidemia continue statins paroxysmal atrial fibrillation now in slow AFib continue Xarelto ?code status full code ?DVT prophylaxis on Xarelto ? patient will need to continued inpatient hospitalization due to persistent symptomatic bradycardia and acute renal failure Quality Stroke Does the patient have a stroke diagnosis?: No VTE Prior VTE?: No VTE Risk Level:: Medical - moderate - high VTE Device Contraindication: Treatment Not Indicated VTE Drug Contraindication: N/A - Med Ordered
--- NOTE | 2021-11-19 12:28 | MHC.CM.PN ---
met with pt who lives in [facility] [address] he lives alone and has [facility]ceis thru [facility] which include [facility] and nursing pt has transport home
[2021-11-19 15:27] VITALS: BP 111/58; PULSE 96; RESP 16; TEMP 36.4; O2SAT 50
--- NOTE | 2021-11-19 15:27 | PM.CNCAR ---
History of Present Illness History of Present Illness Date of Service: 11/19/21 Chief complaint: symptomatic bradycardia Narrative: 75-year-old gentleman with background history of atrial fibrillation, coronary artery disease status post CABG with patent CASTRO to LAD and radiographed ramus. His saphenous vein graft to OM was 100% occluded in the past. He also has congestive heart failure, ischemic cardiomyopathy ( EF 40 45% with restrictive filling pattern and regional wall motion abnormalities in the apical inferior, apical septum and mid anteroseptal segment which are hypokinetic and inferoseptal wall, basal inferior and mid inferior segment akinesis), sinus bradycardia and sleep apnea who is presenting for dizziness and bradycardia. He was as his assisted living facility where he told his friends that he is feeling lightheaded. The nurse states checked his heart rate and was 38 beats per minute by his report. At this stage he was sent to the emergency department. In the ER and ECG showed question what junctional rhythm versus sinus bradycardia with heart rate in 40s. He denied any chest pain or significant shortness of breath at that time. Discussing with him he said he gets short of breath when he walks or does activities. He also has a cough which is worse when he tries to lay down. He Was wheezing during the interview. We decided to stop his amiodarone and carvedilol to see how his heart rate response to that. His heart rate has improved into 50s. When he is sleeping heart rate is 40s based on the telemetry review. He said he walked and is feeling better. [facility] Past Medical History Medical History Afib Atherosclerotic cardiovascular disease CAD (coronary artery disease) Cataract CHF (congestive heart failure) Chronic systolic (congestive) heart failure Ischemic cardiomyopathy Kidney stone WILLIE (obstructive sleep apnea) PAF (paroxysmal atrial fibrillation) Restless legs syndrome Sinus bradycardia Sleep apnea Typical atrial flutter Family History Family History Father No problems noted. Mother No problems noted. Surgical History Surgical History Hx of CABG Social History Social History Housing: Other Housing Other:: Independent living Do you presently have visiting nurse or other home services: Yes Alcohol intake: never Patient Tobacco Use Status: Former Tobacco user Advance Directives Date on File: 10/21/21 service: Yes Current occupational status: retired Meds Allergies Allergy/AdvReac Type Severity Reaction Status Date / Time lisinopril [LISINOPRIL] Allergy Severe SWELLING/ED Verified 11/15/21 09:14 PAO Active Medications: Current Medications Acetaminophen (Acetaminophen 325 Mg Tablet) 650 mg PO Q6H PRN PRN Reason: Pain, Mild (Pain Scale 1-3) Artificial Tears (Artificial Tears 15 Ml Drops) 1 drop EYE-LEFT QID [facility] Last Admin: 11/19/21 14:34 Dose: 1 drop Documented by: Ascorbic Acid (Ascorbic Acid 500 Mg Tablet) 500 mg PO DAILY [facility] Last Admin: 11/19/21 08:47 Dose: 500 mg Documented by: Atorvastatin Calcium (Atorvastatin Calcium 80 Mg Tablet) 80 mg PO BEDTIME [facility] Gabapentin (Gabapentin 600 Mg Tablet) 600 mg PO BEDTIME [facility] Levothyroxine Sodium (Levothyroxine Sodium 75 Mcg Tablet) 75 mcg PO DAILY@0600 [facility] Last Admin: 11/19/21 08:47 Dose: 75 mcg Documented by: Melatonin (Melatonin 3 Mg Tablet) 9 mg PO BEDTIME PRN PRN Reason: Insomnia Multivitamins/Vitamin C (Multivitamin Tablet) 1 tab PO DAILY [facility] Last Admin: 11/19/21 08:47 Dose: 1 tab Documented by: Ondansetron HCl (Ondansetron Hcl 4 Mg/2 Ml Vial) 4 mg IVPUSH Q8H PRN PRN Reason: Nausea and Vomiting Ropinirole HCl (Ropinirole Hcl 0.25 Mg Tablet) 0.5 mg PO BEDTIME [facility] Sodium Chloride (0.9 % Sodium Chloride Flush 3 Ml Syringe) 3 ml IVFLUSH QSHIFT [facility] Last Admin: 11/19/21 07:34 Dose: 3 ml Documented by: Trazodone HCl (Trazodone Hcl 50 Mg Tablet) 50 mg PO BEDTIME PRN PRN Reason: Insomnia Vitamin D (Cholecalciferol (Vitamin D3) 25 Mcg Tablet) 25 mcg PO DAILY [facility] Last Admin: 11/19/21 08:47 Dose: 25 mcg Documented by: Home Medications Medication Instructions Recorded Confirmed Last Taken Type melatonin 10 mg tablet 10 mg PO BEDTIME PRN 05/30/20 11/18/21 11/17/21 History amiodarone 100 mg tablet 100 mg PO DAILY 10/20/21 11/18/21 11/18/21 History ascorbic acid (vitamin C) 500 mg 500 mg PO DAILY 10/20/21 11/18/21 11/18/21 History tablet carboxymethylcellulose sodium 0.5 1 drp OPHTHALMIC-LEFT QID 10/20/21 11/18/21 11/18/21 History % eye drops cholecalciferol (vitamin D3) 25 25 mcg PO DAILY 10/20/21 11/18/21 11/18/21 History mcg (1,000 unit) tablet coenzyme Q10 100 mg capsule 100 mg PO DAILY 10/20/21 11/18/21 11/18/21 History (CoQ-10) ferrous sulfate 324 mg (65 mg 324 mg PO BID 10/20/21 11/18/21 11/18/21 History iron) tablet,delayed release levothyroxine 75 mcg tablet 75 mcg PO DAILY 10/20/21 11/18/21 11/18/21 History (Levoxyl) multivitamin 1 tab PO DAILY 10/20/21 11/18/21 11/18/21 History ropinirole 0.25 mg tablet 0.5 mg PO BEDTIME 10/20/21 11/18/21 11/17/21 History trazodone 50 mg tablet 50 mg PO BEDTIME PRN 10/20/21 11/18/21 11/17/21 History Physical Exam Vital Signs: Vital Signs: Last Vital Signs Temp 96.2 F L 11/19/21 11:18 Pulse 57 11/19/21 11:18 Resp 20 11/19/21 11:18 BP 114/75 11/19/21 11:18 Pulse Ox 96 11/19/21 11:18 BMI result Body Mass Index 29.6 GENERAL APPEARANCE: in no acute distress, pleasant. NECK: no carotid bruit, + jugular venous distention. SKIN: no suspicious lesions, warm and dry. HEART: no murmurs, regular rate and rhythm. Bradycardic. LUNGS: Exploring wheezes. ABDOMEN: soft, nontender. EXTREMITIES: 1+ edema. PERIPHERAL PULSES: equal. NEUROLOGIC: No gross deficits, AAO X 3 Objective Labs and Meds Result diagrams: 11/19/21 07:55 11/19/21 07:55 Lab results: Laboratory Results - last 24 hr 11/19/21 11/19/21 11/19/21 07:55 07:55 07:55 WBC 4.7 L RBC 5.02 Hgb 11.5 L Hct 38.4 L MCV 76.5 L MCH 22.9 L MCHC 29.9 L RDW 23.9 H Plt Count 119 L MPV Not Reportable Absolute Nucleated RBC 0.000 Nucleated RBC % (auto) 0.0 PT 57.0 H INR 4.8 H D Sodium 140 Potassium 3.7 Chloride 103 Carbon Dioxide 26 Anion Gap 15 BUN 39 H Creatinine 1.72 H Estim Creat Clear Calc 38.8 Estimated GFR 39 Random Glucose 105 Calcium 8.9 D Assessment and Plan (1) Bradycardia: Status: Acute (2) Acute on chronic systolic and diastolic heart failure, NYHA class 3: Status: Acute Plan [age] gentleman who is here for lightheadedness and bradycardia. EKG was concerning for possible junctional bradycardia with heart rate 49 beats per minute. he was not carvedilol 12.5 mg b.i.d. and amiodarone. This have been held and his heart rate has improved. He clinically is also feeling better and has no lightheadedness. he does have shortness of breath and wheezing weights signs of volume overload. I think he should be diuresed and I am starting him on IV furosemide 80 mg b.i.d.. Continue to hold carvedilol and amiodarone at this stage. As he improves we will potentially send him home and plan outpatient pacemaker on him. I think he is stable and potentially rivaroxaban can be continued as before. Thank you for allowing me to participate in the care of your patient. Please feel free to contact me if you have any questions. Procedures Date of Service Date of Service: 11/19/21
[2021-11-19] MEDS: Furosemide 100 MG/10 ML VIAL 80 MG IVPUSH (15:39)
[2021-11-19 18:59] VITALS: BP 107/57; PULSE 75; RESP 17; TEMP 36.5; O2SAT 87
[2021-11-19] MEDS: Gabapentin 600 MG TABLET PO (20:24)
[2021-11-19] MEDS: rOPINIRole HCL 0.25 MG TABLET 0.5 MG PO (20:24)
[2021-11-19] MEDS: Atorvastatin Calcium 80 MG TABLET PO (20:24)
[2021-11-20] VITALS (8 sets, daily range): BP systolic 95–146; BP diastolic 53–82; PULSE 52–145; RESP 17–20; TEMP 36–37; O2SAT 94–99
[2021-11-20] MEDS: Levothyroxine Sodium 75 MCG TABLET PO (06:03)
[2021-11-20] MEDS: Artificial Tears 15 ML DROPS 1 DROP EYE-LEFT ×4 (08:28→20:14)
[2021-11-20] MEDS: Furosemide 100 MG/10 ML VIAL 80 MG IVPUSH ×2 (08:28→17:05)
[2021-11-20] MEDS: Multivitamin TABLET 1 TAB PO (08:28)
[2021-11-20] MEDS: 0.9 % Sodium Chloride Flush 3 ML SYRINGE IVFLUSH ×3 (08:28→20:14)
[2021-11-20] MEDS: Cholecalciferol (Vitamin D3) 25 MCG TABLET PO (08:28)
[2021-11-20] MEDS: Ascorbic Acid 500 MG TABLET PO (08:28)
[2021-11-20 09:06] LABS: Anion Gap 15 (12-20); Blood Urea Nitrogen 36 mg/dL (9-16); Carbon Dioxide 26 mmol/L (22-29); Chloride 102 mmol/L (96-108); Creatinine Clr Calc Pharmacy 45.7; Estimated Glomerular Filt Rate 47; Glucose Random 115 mg/dL (60-115); Potassium 3.2 mmol/L (3.3-5.1); Sodium 140 mmol/L (135-145)
[2021-11-20 09:14] LABS: B Type Natriuretic Peptide 2481 pg/mL (<100)
--- NOTE | 2021-11-20 09:54 | P.PNCA_ITS ---
Subjective Subjective Date of Service: 11/20/21 Interval history: seen and examined. Feeling better. HR 60s. still overloaded. Physical Exam Vital Signs: Last Vital Signs Temp 96.8 F 11/20/21 08:18 Pulse 65 11/20/21 08:18 Resp 20 11/20/21 08:18 BP 119/64 11/20/21 08:18 Pulse Ox 97 11/20/21 08:18 BMI result Body Mass Index 29.6 GENERAL APPEARANCE: in no acute distress, pleasant. NECK: no carotid bruit, + jugular venous distention. SKIN: no suspicious lesions, warm and dry. HEART: no murmurs, regular rate and rhythm. LUNGS:? b/l wheezes. ABDOMEN: soft, nontender. EXTREMITIES: 1+ edema. PERIPHERAL PULSES: equal. NEUROLOGIC: No gross deficits, AAO X 3 Objective Labs and Meds Result diagrams: 11/19/21 07:55 11/20/21 08:30 Lab results: Laboratory Results - last 24 hr 11/20/21 11/20/21 08:30 08:30 Sodium 140 Potassium 3.2 L Chloride 102 Carbon Dioxide 26 Anion Gap 15 BUN 36 H Creatinine 1.46 H Estim Creat Clear Calc 45.7 Estimated GFR 47 Random Glucose 115 Calcium 9.0 B-Natriuretic Peptide 2481 H Progress Note: A&P Assessment and plan (1) Bradycardia: Status: Acute (2) Acute on chronic systolic and diastolic heart failure, NYHA class 3: Status: Acute Plan 75 male with bradycardia and CHF. Coreg and amiodarone were held. On Lasix. Given po metolazone today. Stable from bradycardia viewpoint. Fall Risk Details Current Medications: Current Medications Acetaminophen (Acetaminophen 325 Mg Tablet) 650 mg PO Q6H PRN PRN Reason: Pain, Mild (Pain Scale 1-3) Artificial Tears (Artificial Tears 15 Ml Drops) 1 drop EYE-LEFT QID [facility] Last Admin: 11/20/21 08:28 Dose: 1 drop Documented by: Ascorbic Acid (Ascorbic Acid 500 Mg Tablet) 500 mg PO DAILY [facility] Last Admin: 11/20/21 08:28 Dose: 500 mg Documented by: Atorvastatin Calcium (Atorvastatin Calcium 80 Mg Tablet) 80 mg PO BEDTIME [facility] Last Admin: 11/19/21 20:24 Dose: 80 mg Documented by: Furosemide (Furosemide 100 Mg/10 Ml Vial) 80 mg IVPUSH BID@0900,1800 [facility]; Protocol Last Admin: 11/20/21 08:28 Dose: 80 mg Documented by: Gabapentin (Gabapentin 600 Mg Tablet) 600 mg PO BEDTIME [facility] Last Admin: 11/19/21 20:24 Dose: 600 mg Documented by: Levothyroxine Sodium (Levothyroxine Sodium 75 Mcg Tablet) 75 mcg PO DAILY@0600 [facility] Last Admin: 11/20/21 06:03 Dose: 75 mcg Documented by: Melatonin (Melatonin 3 Mg Tablet) 9 mg PO BEDTIME PRN PRN Reason: Insomnia Multivitamins/Vitamin C (Multivitamin Tablet) 1 tab PO DAILY [facility] Last Admin: 11/20/21 08:28 Dose: 1 tab Documented by: Ondansetron HCl (Ondansetron Hcl 4 Mg/2 Ml Vial) 4 mg IVPUSH Q8H PRN PRN Reason: Nausea and Vomiting Rivaroxaban (Rivaroxaban 20 Mg Tablet) 20 mg PO DAILY@1700 [facility] Ropinirole HCl (Ropinirole Hcl 0.25 Mg Tablet) 0.5 mg PO BEDTIME [facility] Last Admin: 11/19/21 20:24 Dose: 0.5 mg Documented by: Sodium Chloride (0.9 % Sodium Chloride Flush 3 Ml Syringe) 3 ml IVFLUSH QSHIFT [facility] Last Admin: 11/20/21 08:28 Dose: 3 ml Documented by: Trazodone HCl (Trazodone Hcl 50 Mg Tablet) 50 mg PO BEDTIME PRN PRN Reason: Insomnia Vitamin D (Cholecalciferol (Vitamin D3) 25 Mcg Tablet) 25 mcg PO DAILY [facility] Last Admin: 11/20/21 08:28 Dose: 25 mcg Documented by: Time Spent With Patient Time: Total time spent is greater than 50% in coordination of care (as documented) at patient's floor/unit and/or counseling patient: Progress Note: Quality Stroke Does the patient have a stroke diagnosis?: No Procedures Date of Service Date of Service: 11/20/21
--- NOTE | 2021-11-20 13:16 | HO.PM.IMPN ---
Subjective Subjective Date of Service: 11/20/21 Interval History: resting comfortably slept well overnight, denies chest pain no shortness of breath, no palpitation has history of chronic throat tickle and cough when lie flat, no acute events overnight. Review of Systems Review of Systems: Yes all other systems are reviewed and are negative Physical Exam Vital Signs: Vital Signs: Last Vital Signs Temp 97.1 F 11/20/21 11:29 Pulse 54 11/20/21 11:29 Resp 20 11/20/21 11:29 BP 115/55 L 11/20/21 11:29 Pulse Ox 95 11/20/21 11:29 BMI result Body Mass Index 29.6 Const: Other: General? awake elsie rt x3,in no acute distress. Neck? barrios pple, no JVD. CVS ? slow heart rate Respiratory lungs clear to auscultat ion, no respirator y distress, no whe steven, no rhonchi. G astrointestinal ab domen soft, nonten trevon, bowel sounds audible, no guardi ng , no rigidity. Extremities? bilat eral edema left gr eater than right,? improving, distal pulses present [place] ro nonfocal Skin n o rash Psych appro priate affect Objective Data Active Medications Acetaminophen (Acetaminophen 325 Mg Tablet) 650 mg PO Q6H PRN PRN Reason: Pain, Mild (Pain Scale 1-3) Artificial Tears (Artificial Tears 15 Ml Drops) 1 drop EYE-LEFT QID [facility] Last Admin: 11/20/21 12:43 Dose: 1 drop Documented by: JESS Ascorbic Acid (Ascorbic Acid 500 Mg Tablet) 500 mg PO DAILY [facility] Last Admin: 11/20/21 08:28 Dose: 500 mg Documented by: JESS Atorvastatin Calcium (Atorvastatin Calcium 80 Mg Tablet) 80 mg PO BEDTIME [facility] Last Admin: 11/19/21 20:24 Dose: 80 mg Documented by: AMY Furosemide (Furosemide 100 Mg/10 Ml Vial) 80 mg IVPUSH BID@0900,1800 [facility]; Protocol Last Admin: 11/20/21 08:28 Dose: 80 mg Documented by: JESS Gabapentin (Gabapentin 600 Mg Tablet) 600 mg PO BEDTIME [facility] Last Admin: 11/19/21 20:24 Dose: 600 mg Documented by: AMY Levothyroxine Sodium (Levothyroxine Sodium 75 Mcg Tablet) 75 mcg PO DAILY@0600 [facility] Last Admin: 11/20/21 06:03 Dose: 75 mcg Documented by: AMY Melatonin (Melatonin 3 Mg Tablet) 9 mg PO BEDTIME PRN PRN Reason: Insomnia Metolazone (Metolazone 2.5 Mg Tablet) 2.5 mg PO ONCE ONE Stop: 11/20/21 18:01 Multivitamins/Vitamin C (Multivitamin Tablet) 1 tab PO DAILY [facility] Last Admin: 11/20/21 08:28 Dose: 1 tab Documented by: JESS Ondansetron HCl (Ondansetron Hcl 4 Mg/2 Ml Vial) 4 mg IVPUSH Q8H PRN PRN Reason: Nausea and Vomiting Potassium Chloride (Potassium Chloride Er 20 Meq Tab.Er.Prt) 40 meq PO DAILY [facility] Rivaroxaban (Rivaroxaban 20 Mg Tablet) 20 mg PO DAILY@1700 [facility] Ropinirole HCl (Ropinirole Hcl 0.25 Mg Tablet) 0.5 mg PO BEDTIME [facility] Last Admin: 11/19/21 20:24 Dose: 0.5 mg Documented by: AMY Sodium Chloride (0.9 % Sodium Chloride Flush 3 Ml Syringe) 3 ml IVFLUSH QSHIFT [facility] Last Admin: 11/20/21 08:28 Dose: 3 ml Documented by: JESS Trazodone HCl (Trazodone Hcl 50 Mg Tablet) 50 mg PO BEDTIME PRN PRN Reason: Insomnia Vitamin D (Cholecalciferol (Vitamin D3) 25 Mcg Tablet) 25 mcg PO DAILY [facility] Last Admin: 11/20/21 08:28 Dose: 25 mcg Documented by: JESS Labs CBC & Chem 7: 11/19/21 07:55 11/20/21 08:30 Labs: Laboratory Results - last 24 hr 11/20/21 11/20/21 08:30 08:30 Anion Gap 15 Estim Creat Clear Calc 45.7 Estimated GFR 47 Random Glucose 115 Calcium 9.0 B-Natriuretic Peptide 2481 H Assessment and Plan (1) Symptomatic bradycardia: Status: Acute (2) SRAVANI (acute kidney injury): Status: Acute (3) Periodic limb movement disorder: Status: Acute (4) Chronic systolic (congestive) heart failure: Status: Acute (5) WILLIE (obstructive sleep apnea): Status: Acute Plan 75-year-old gentleman with past medical history significant for paroxysmal atrial fibrillation, on Coreg, amiodarone and Xarelto presented to [facility] due to symptoms of lightheadedness generalized weakness and diagnosed to have symptomatic bradycardia with heart rate in 40s? also with elevated creatinine,patient will be admitted for further evaluation and treatment. ?Symptomatic bradycardia feels better this am, ventricular rate improved mid 50-60 range ?continue to hold Coreg and amiodarone, bradycardia was likely medication related, potassium 3.2 ,magnesium is 2.1, will replace potassium to bring level to 4 ?mildly elevated troponin improved since last month, likely due to SRAVANI patient, denies chest pain seen by Dr. Burdick he recommend outpatient pacemaker acute kidney injury likely due to decreased cardiac output, recent renal workup including renal ultrasound that was unremarkable follow renal function, hold diuretics creatinine improving slowly continue to follow BMP while being diuresed ?acute on chronic systolic congestive heart failure noted to have worsening of BNP, case discussed with Cardiology they recommend IV Lasix 80 mg b.i.d., metolazone 2.5 mg x 1 given ch bilateral leg edema, recent bilateral lower extremity Doppler study negative for DVT. edema improving follow BMP and BNP ?coagulopathy with INR 8.3 on admission improved to 4.8, no active bleeding noted, continue Xarelto ?hypothyroidism TSH at 7.01, free T4 1.31, likely subclinical hypothyroidism will continue Synthroid current dose, recommend follow-up TSH in 6 weeks hyperlipidemia continue statins paroxysmal atrial fibrillation now in slow AFib continue Xarelto ?code status full code ?DVT prophylaxis on Xarelto ? patient will need to continued inpatient hospitalization due to acute on chronic congestive heart failure requiring IV diuretics. Quality Stroke Does the patient have a stroke diagnosis?: No VTE Prior VTE?: No VTE Risk Level:: Medical - moderate - high VTE Device Contraindication: Treatment Not Indicated VTE Drug Contraindication: N/A - Med Ordered
[2021-11-20] MEDS: Potassium Chloride ER 20 MEQ TAB.ER.PRT 40 MEQ PO (15:15)
[2021-11-20] MEDS: Rivaroxaban 20 MG TABLET PO (17:05)
[2021-11-20] MEDS: metOLazone 2.5 MG TABLET PO (18:39)
[2021-11-20] MEDS: Gabapentin 600 MG TABLET PO (20:14)
[2021-11-20] MEDS: rOPINIRole HCL 0.25 MG TABLET 0.5 MG PO (20:14)
[2021-11-20] MEDS: Atorvastatin Calcium 80 MG TABLET PO (20:14)
[2021-11-21 03:36] VITALS: BP 123/65; PULSE 62; RESP 18; TEMP 36.7; O2SAT 96
[2021-11-21] MEDS: Levothyroxine Sodium 75 MCG TABLET PO (04:27)
[2021-11-21 06:51] LABS: B Type Natriuretic Peptide 2440 pg/mL (<100)
[2021-11-21 07:05] LABS: Anion Gap 13 (12-20); Blood Urea Nitrogen 31 mg/dL (9-16); Calcium 8.9 mg/dL (8.4-10.2); Carbon Dioxide 26 mmol/L (22-29); Chloride 101 mmol/L (96-108); Creatinine Clr Calc Pharmacy 47.3; Estimated Glomerular Filt Rate 49; Glucose Random 114 mg/dL (60-115); Potassium 3.1 mmol/L (3.3-5.1); Sodium 137 mmol/L (135-145)
[2021-11-21 08:00] VITALS: BP 122/59; PULSE 66; RESP 20; TEMP 36.5; O2SAT 96
[2021-11-21] MEDS: Cholecalciferol (Vitamin D3) 25 MCG TABLET PO (08:31)
[2021-11-21] MEDS: Furosemide 100 MG/10 ML VIAL 80 MG IVPUSH (08:31)
[2021-11-21] MEDS: 0.9 % Sodium Chloride Flush 3 ML SYRINGE IVFLUSH (08:31)
[2021-11-21] MEDS: Potassium Chloride ER 20 MEQ TAB.ER.PRT 40 MEQ PO (08:31)
[2021-11-21] MEDS: Ascorbic Acid 500 MG TABLET PO (08:32)
[2021-11-21] MEDS: Multivitamin TABLET 1 TAB PO (08:32)
[2021-11-21] MEDS: Artificial Tears 15 ML DROPS 1 DROP EYE-LEFT ×2 (08:35→13:27)
[2021-11-21 11:52] VITALS: BP 126/64; PULSE 62; RESP 20; TEMP 37; O2SAT 97
--- NOTE | 2021-11-21 12:14 | PM.PNCARD ---
Subjective Subjective Date of Service: 11/21/21 Interval history: Patient seen and examined at bedside. he is still volume overloaded but wants to go home. Physical Exam Vital Signs: Last Vital Signs Temp 98.6 F 11/21/21 11:52 Pulse 62 11/21/21 11:52 Resp 20 11/21/21 11:52 BP 126/64 11/21/21 11:52 Pulse Ox 97 11/21/21 11:52 BMI result Body Mass Index 29.6 GENERAL APPEARANCE: in no acute distress, pleasant. NECK: no carotid bruit, + jugular venous distention. SKIN: no suspicious lesions, warm and dry. HEART: no murmurs, regular rate and rhythm. LUNGS:? b/l wheezes. ABDOMEN: soft, nontender. EXTREMITIES: 1+ edema. PERIPHERAL PULSES: equal. NEUROLOGIC: No gross deficits, AAO X 3 Objective Labs and Meds Result diagrams: 11/19/21 07:55 11/21/21 06:05 Lab results: Laboratory Results - last 24 hr 11/21/21 11/21/21 06:05 06:05 Sodium 137 Potassium 3.1 L Chloride 101 Carbon Dioxide 26 Anion Gap 13 BUN 31 H Creatinine 1.41 H Estim Creat Clear Calc 47.3 Estimated GFR 49 Random Glucose 114 Calcium 8.9 B-Natriuretic Peptide 2440 H Progress Note: A&P Assessment and plan (1) Bradycardia: Status: Acute (2) Acute on chronic systolic and diastolic heart failure, NYHA class 3: Status: Acute Plan 75-year-old gentleman with bradycardia and acute on chronic congestive heart failure. Bradycardia is improved after stopping carvedilol and amiodarone. I think we should hold both for now. Significantly volume overloaded. Does not want to stay in the hospital anymore and will likely sign AMA. changed to torsemide 40 mg twice a day. Metolazone Monday and Monday. Electrolytes in next week. He will need to be seen in our office soon. we will arrange follow-up. Thank you for allowing me to participate in the care of your patient. Please feel free to contact me if you have any questions. Fall Risk Details Current Medications: Current Medications Acetaminophen (Acetaminophen 325 Mg Tablet) 650 mg PO Q6H PRN PRN Reason: Pain, Mild (Pain Scale 1-3) Artificial Tears (Artificial Tears 15 Ml Drops) 1 drop EYE-LEFT QID [facility] Last Admin: 11/21/21 08:35 Dose: 1 drop Documented by: Ascorbic Acid (Ascorbic Acid 500 Mg Tablet) 500 mg PO DAILY [facility] Last Admin: 11/21/21 08:32 Dose: 500 mg Documented by: Atorvastatin Calcium (Atorvastatin Calcium 80 Mg Tablet) 80 mg PO BEDTIME [facility] Last Admin: 11/20/21 20:14 Dose: 80 mg Documented by: Furosemide (Furosemide 100 Mg/10 Ml Vial) 80 mg IVPUSH BID@0900,1800 [facility]; Protocol Last Admin: 11/21/21 08:31 Dose: 80 mg Documented by: Gabapentin (Gabapentin 600 Mg Tablet) 600 mg PO BEDTIME [facility] Last Admin: 11/20/21 20:14 Dose: 600 mg Documented by: Levothyroxine Sodium (Levothyroxine Sodium 75 Mcg Tablet) 75 mcg PO DAILY@0600 [facility] Last Admin: 11/21/21 04:27 Dose: 75 mcg Documented by: Melatonin (Melatonin 3 Mg Tablet) 9 mg PO BEDTIME PRN PRN Reason: Insomnia Multivitamins/Vitamin C (Multivitamin Tablet) 1 tab PO DAILY [facility] Last Admin: 11/21/21 08:32 Dose: 1 tab Documented by: Ondansetron HCl (Ondansetron Hcl 4 Mg/2 Ml Vial) 4 mg IVPUSH Q8H PRN PRN Reason: Nausea and Vomiting Potassium Chloride (Potassium Chloride Er 20 Meq Tab.Er.Prt) 40 meq PO DAILY [facility] Last Admin: 11/21/21 08:31 Dose: 40 meq Documented by: Rivaroxaban (Rivaroxaban 20 Mg Tablet) 20 mg PO DAILY@1700 [facility] Last Admin: 11/20/21 17:05 Dose: 20 mg Documented by: Ropinirole HCl (Ropinirole Hcl 0.25 Mg Tablet) 0.5 mg PO BEDTIME [facility] Last Admin: 11/20/21 20:14 Dose: 0.5 mg Documented by: Sodium Chloride (0.9 % Sodium Chloride Flush 3 Ml Syringe) 3 ml IVFLUSH QSHIFT [facility] Last Admin: 11/21/21 08:31 Dose: 3 ml Documented by: Trazodone HCl (Trazodone Hcl 50 Mg Tablet) 50 mg PO BEDTIME PRN PRN Reason: Insomnia Vitamin D (Cholecalciferol (Vitamin D3) 25 Mcg Tablet) 25 mcg PO DAILY [facility] Last Admin: 11/21/21 08:31 Dose: 25 mcg Documented by: Time Spent With Patient Time: Total time spent is greater than 50% in coordination of care (as documented) at patient's floor/unit and/or counseling patient: Progress Note: Quality Stroke Does the patient have a stroke diagnosis?: No Procedures Date of Service Date of Service: 11/21/21
--- NOTE | 2021-11-21 12:30 | P.DS_ITS ---
DS: Providers Provider Date of Service: 11/21/21 Date of admission: 11/18/21 15:01 Primary care physician: Naveen Mcconnell Consults: 11/19/21 09:34 Consult to Cardiology Routine Consulting Provider: Laurent Burdick Reason for consultation: bradycardia Has provider been notified: No DS: Diagnosis Discharge Diagnosis (1) Bradycardia: Status: Acute (2) Acute on chronic systolic and diastolic heart failure, NYHA class 3: Status: Acute DS: Summary Hospital Course Hospital Course: 75-year-old gentleman with past medical history significant for atrial fibri llation, coronary artery disease, congestive heart failure with reduced EF, obstructive sleep apnea on CPAP, restless leg syndrome patient was recently discharged from [facility] on October 22 after being treated for SRAVANI and acute on chronic congestive heart failure, patient presented to [facility] on this occasion due to symptoms of lightheadedness generalized weakness fatigue of few days duration, he denies associated chest pain no palpitations no syncope no fevers no chills no cough or here in retract infection, in the emergency room EKG showed slow AFib in 40s, electrolytes showed? borderline low potassium and elevated creatinine of 1.8, chest x-ray showed hyperexpanded lungs without acute process, patient treated in Emergency Room with glucagon and IV fluid pacer pad placed, patient now being admitted to [facility] with symptomatic bradycardia. Hospital course: Patient was admitted due to bradycardia and acute on chronic systolic congestive heart failure: Patient heart medications adjusted-Coreg and amiodarone was placed on hold due to low heart rate-please hold off Coreg and amiodarone until seen by the heart doctor and further use of these medications out patiently as per cardiology, in addition patient may need outpatient pacemaker. In addition CHF Treated with IV Lasix seems improving but still fluid overloaded, patient decided to sign against medical advice , discussed with him in detail risk of leaving against medical advice he understand still wants to leave- will give p.o. torsemide upon discharge. Patient encouraged come back to nearest emergency room in case his shortness of breath worsens or in any new symptoms including chest pain. Possible acute kidney injury: improving, Patient has fluctuating renal function since 2020: Patient says that he has renal appointment next week. Please follow-up renal function and electrolytes with kidney doctor. Hypokalemia: Added potassium, monitor renal function and electrolytes above, also given potassium replacement limited supply , further supply as per PCP and renal after repeating renal function and electrolytes with outpatiently. coagulopathy improving, no active bleeding noted,? continue? Xarelto ?hypothyroidism TSH at 7.01, free T4 1.31, likely subclinical hypothyroidism - continue Synthroid current dose, recommend follow-up TSH in 6 weeks with pcp. Above management discussed with the patient in detail length she understand and in agreement with the above plan, time spent 50 minutes and 50% time spent on counseling. Significant findings: As above. Procedures performed: None. Treatment and response: As above. Complications: None. Time Spent with Patient Time attestation: Total time spent providing and/or coordinating discharge services: Discharge coordination time: Greater than 30 minutes Quality: Stroke Does the patient have a stroke diagnosis?: No Physical Exam Vital Signs: Vital Signs: Last Vital Signs Temp 98.6 F 11/21/21 11:52 Pulse 62 11/21/21 11:52 Resp 20 11/21/21 11:52 BP 126/64 11/21/21 11:52 Pulse Ox 97 11/21/21 11:52 BMI result Body Mass Index 29.6 Appearance: Alert.? Oriented X3.? not in distress.? Eyes: Pupils equal, round and reactive to light.? Sclera nonicteric.? ENT: Pharynx normal.? Moist mucous membranes. cvs: rrr, [id number] , has jvd res: clear to auscultation ,no rhonchii or wheezing abd: no rebound or guarding ,nt, bs present. ext pulses present , no cyanosis , has leg edema. neuro: axo3 , nonfocal. DS: Data Data Completed and Pending Labs on day of discharge: Laboratory Results - last 24 hr 11/21/21 11/21/21 06:05 06:05 Sodium 137 Potassium 3.1 L Chloride 101 Carbon Dioxide 26 Anion Gap 13 BUN 31 H Creatinine 1.41 H Estim Creat Clear Calc 47.3 Estimated GFR 49 Random Glucose 114 Calcium 8.9 B-Natriuretic Peptide 2440 H Discharge Plan Discharge Patient Disposition: Left Against Medical Advice Discharge Diagnosis: bradycardia, chf excerebation Referrals: Naveen Mcconnell [Primary Care Provider] - 1 Week Discharge Medications: New torsemide 20 mg tablet 40 mg PO DAILY Qty: 120 0RF Continued atorvastatin 80 mg tablet 80 mg PO DAILY Qty: 90 3RF Xarelto 20 mg tablet 20 mg PO DAILY Qty: 90 3RF melatonin 10 mg Tablet 10 mg PO BEDTIME PRN (Reason: Insomnia) 0RF multivitamin Tablet 1 tab PO DAILY 0RF trazodone 50 mg Tablet 50 mg PO BEDTIME PRN (Reason: Insomnia) 0RF levothyroxine [Levoxyl] 75 mcg Tablet 75 mcg PO DAILY 0RF ascorbic acid (vitamin C) 500 mg Tablet 500 mg PO DAILY 0RF carboxymethylcellulose sodium 0.5 % drops 1 drp ophthalmic-Left QID 0RF coenzyme Q10 [CoQ-10] 100 mg Capsule 100 mg PO DAILY 0RF cholecalciferol (vitamin D3) 25 mcg (1,000 unit) Tablet 25 mcg PO DAILY 0RF ferrous sulfate 324 mg (65 mg iron) Tablet,Delayed Release (Dr/Ec) 324 mg PO BID 0RF ropinirole 0.25 mg tablet 0.5 mg PO BEDTIME 0RF Rx Instructions: administer 8pm gabapentin 600 mg tablet 600 mg PO BEDTIME 30 Days Qty: 30 6RF metolazone 2.5 mg tablet 2.5 mg PO Q OTHER DAY Qty: 30 5RF Rx Instructions: Use on Monday, Monday, Monday. Changed potassium citrate 10 mEq (1,080 mg) tablet extended release 20 meq PO DAILY Qty: 8 0RF Held amiodarone 100 mg tablet 100 mg PO DAILY 0RF Hold Instructions: Hold amiodarone until seen by Cardiology and further use as per Cardiology carvedilol 12.5 mg tablet 12.5 mg PO BID 90 Days Qty: 180 3RF Hold Instructions: Hold Coreg until seen by Cardiology and further use as per Cardiology. Discontinued bumetanide 1 mg tablet 3 mg PO BID 90 Days Qty: 540 3RF Discharge Orders: Discharge Order (Routine); Ordered 11/21/21 Ordered By: Chris Moe Diet: advance to usual diet, low fat, low cholesterol and low salt diet Activity on Discharge: As tolerated Care Plan Goals: Patient was admitted due to low heart rate and heart failure: Patient heart medications adjusted-Coreg and amiodarone was placed on hold due to low heart rate-please hold off Coreg and amiodarone until seen by the heart doctor and further use of these medications out patiently as per heart doctor, in addition patient may need outpatient pacemaker. Heart failure: Treated with IV Lasix seems improving but still fluid overloaded, patient decided to sign against medical advice will give p.o. torsemide upon discharge. Possible acute kidney injury: improving, Patient has fluctuating renal function since 2020: Patient says that he has renal appointment next week. Please follow-up renal function and electrolytes with kidney doctor. Hypokalemia: Added potassium, monitor renal function and electrolytes above, also given potassium replacement limited supply , further supply as per PCP and renal after repeating renal function and electrolytes with outpatiently. Health Concerns: as above. Plan of Treatment: As above. Assessment: As above. Discharge Date/Time: 11/21/21 14:28
[2021-11-21] MEDS: Potassium Chloride Packet 20 MEQ PACKET 40 MEQ PO (13:26)
== END 2021-11-21 14:28 | disposition left against medical advice (07) | DRG 308 ==
LOC: HO.ED 14:02 → HO.EDOVER 15:07 → HO.IMC 17:14
PROVIDERS: Physician Assistant; Admitting Provider Hospitalist; Emergency Provider Emergency Medicine; PCP Internal Medicine; Visit Provider Internal Medicine
DX: R00.1 Bradycardia, unspecified (principal); I50.23 Acute on chronic systolic (congestive) heart failure; N17.9 Acute kidney failure, unspecified; I25.10 Atherosclerotic heart disease of native coronary artery without angina pectoris; G47.33 Obstructive sleep apnea (adult) (pediatric); G25.81 Restless legs syndrome; Z95.1 Presence of aortocoronary bypass graft; E78.5 Hyperlipidemia, unspecified; R79.1 Abnormal coagulation profile; I25.5 Ischemic cardiomyopathy; E03.9 Hypothyroidism, unspecified; T44.7X5A Adverse effect of beta-adrenoreceptor antagonists, initial encounter; T46.2X5A Adverse effect of other antidysrhythmic drugs, initial encounter; Z99.89 Dependence on other enabling machines and devices; Z20.822 Contact with and (suspected) exposure to COVID-19; Z87.442 Personal history of urinary calculi; Z87.891 Personal history of nicotine dependence; Z79.01 Long term (current) use of anticoagulants; Z79.890 Hormone replacement therapy; Z79.899 Other long term (current) drug therapy
CPT/HCPCS: 36415; 71045; 80048; 80053; 83735; 83880; 84439; 84443; 84484; 85025; 85027; 85610; 85730; 87635; 93005; 96361; 96374; 99285; 99291; J1610; J1940

== ENCOUNTER → 2021-11-23 12:52 | Outpatient (BNVA) | payer OTHER, SELFPAY | PROVIDERS: PCP Internal Medicine; Visit Provider Nurse Practitioner Family | DX: G47.33 Obstructive sleep apnea (adult) (pediatric) (principal); G25.81 Restless legs syndrome | CPT/HCPCS: 99212 ==

== ENCOUNTER 2021-11-26 09:36 | Inpatient (IN) | payer OTHER, SELFPAY ==
[2021-11-26] VITALS (9 sets, daily range): BP systolic 100–137; BP diastolic 59–74; PULSE 64–84; RESP 14–18; TEMP 36.6–37.4; O2SAT 92–99; BMI 28.7
--- NOTE | ~2021-11-26 | XR_ITS ---
EXAMINATION: CHEST AND LUMBAR SPINE. CLINICAL INFORMATION: Cough. Low back pain. COMPARISON: Chest 11/18/2021 TECHNIQUE: Chest 2 views. Lumbar spine 4 views. FINDINGS: Chest: The lungs are well-expanded with patchy airspace opacity right lower lobe rest of lungs are clear. There is increased bilateral vascular markings with mild cardiomegaly and evidence of CABG changes. No gross bony abnormality is seen. Lumbar spine: There is normal lumbar lordosis. There is grade 1 anterolisthesis L4 over L5. Loss of L2-L3 disc height is noted. Rest the disc heights are normal. There is mild ventral spondylosis T12-L1 through L2-L3 disc levels. No lytic or sclerotic process seen. The paravertebral soft tissues are normal. XR/XR lumbar spine 2-3V IMPRESSION: Cardiomegaly with CHF. Patchy opacity right lung base new since previous study. Elevated right hemidiaphragm is unchanged. 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 Grade 1 anterolisthesis L4 over L5. There are degenerative disc changes at the L2-L3. Mild spondylosis lower dorsal and upper lumbar spine.
--- NOTE | ~2021-11-26 | XR_ITS ---
EXAMINATION: CHEST AND LUMBAR SPINE. CLINICAL INFORMATION: Cough. Low back pain. COMPARISON: Chest 11/18/2021 TECHNIQUE: Chest 2 views. Lumbar spine 4 views. FINDINGS: Chest: The lungs are well-expanded with patchy airspace opacity right lower lobe rest of lungs are clear. There is increased bilateral vascular markings with mild cardiomegaly and evidence of CABG changes. No gross bony abnormality is seen. Lumbar spine: There is normal lumbar lordosis. There is grade 1 anterolisthesis L4 over L5. Loss of L2-L3 disc height is noted. Rest the disc heights are normal. There is mild ventral spondylosis T12-L1 through L2-L3 disc levels. No lytic or sclerotic process seen. The paravertebral soft tissues are normal. XR/XR chest 2V IMPRESSION: Cardiomegaly with CHF. Patchy opacity right lung base new since previous study. Elevated right hemidiaphragm is unchanged. 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 Grade 1 anterolisthesis L4 over L5. There are degenerative disc changes at the L2-L3. Mild spondylosis lower dorsal and upper lumbar spine.
--- NOTE | ~2021-11-26 | MR_ITS ---
EXAMINATION: MR LUMBAR SPINE WITHOUT CONTRAST CLINICAL INFORMATION: Low back pain. COMPARISON: Lumbar spine radiographs 11/26/2021. TECHNIQUE: MRI of the lumbar spine was obtained using routine sequences without contrast. FINDINGS: There is grade 1 anterolisthesis of L4 on L5 related to advanced facet degenerative changes at this level. Alignment is otherwise normal. Vertebral body heights are preserved. There are mixed degenerative endplate changes at L2-L3. There is loss of intervertebral disc height and T2 signal intensity at multiple levels related to disc degeneration. The tip of the conus medullaris is located at L1-L2. No mass effect on the conus. Visualized distal cord signal intensity is normal. At L1-L2 there is a bulging disc. Bilateral facet degenerative change. Mild canal stenosis. No mass effect on the traversing or foraminal nerve roots. At L2-L3 there is a diffusely bulging disc. Bilateral facet degenerative change. Severe canal stenosis. Severe compression of the right L2 foraminal nerve root and moderate compression of the left L2 foraminal nerve root. At L3-L4 there is a diffusely bulging disc. Advanced facet degenerative change. Moderate canal stenosis. Moderate compression of the right L3 foraminal nerve roots and mild compression of the left L3 foraminal nerve root. At L4-L5 there is a pseudodisc bulge. Advanced bilateral facet degenerative change. Mild canal stenosis. Subarticular zone narrowing causes abutment of both traversing L5 nerve roots. There is severe compression of both L4 foraminal nerve roots. At L5-S1 there is a slightly bulging disc. Advanced bilateral facet degenerative change. No canal stenosis. No substantial mass effect on the traversing or foraminal nerve roots. Limited visualization of the retroperitoneal anatomy reveals multiple small well marginated benign-appearing cystic lesions within both kidneys. Psoas and paraspinal muscle groups are symmetric. MR/MR lumbar spine wo con IMPRESSION: There is multilevel degenerative spondylosis of the lumbar spine with grade 1 anterolisthesis of L4 on L5 related to advanced facet degenerative changes at this level. There is severe canal stenosis at L2-L3, moderate canal stenosis at L3-L4, and mild canal stenosis at L1-L2 and L4-L5. There are varying degrees of mass effect on the traversing and foraminal segments of the nerve roots as described above. For instance at L4-L5 there is severe compression of both L4 foraminal nerve roots.
--- NOTE | ~2021-11-26 | CT_ITS ---
EXAMINATION: CT ABDOMEN AND PELVIS WITHOUT CONTRAST CLINICAL INFORMATION: Left flank pain COMPARISON: Previous renal ultrasound September 2021 CT of the abdomen and pelvis December 2020 TECHNIQUE: Multidetector volumetric imaging was performed from the superior aspect of the liver through the pubic symphysis. Sagittal and coronal reformatted images were obtained on the technologist's workstation. This CT examination was performed using dose optimization techniques as appropriate, variously including the following: *Automated exposure control *Adjustment of mA and/or kV according to patient size (this includes techniques or standardized protocols for targeted exams where dose is matched to indication/reason for exam; i.e. extremities or head) *Use of iterative reconstruction technique DLP: 611 mGy-cm FINDINGS: LUNG BASES: There is a right pleural effusion. There is increased density in the adjacent right lung questionable for compressive atelectasis or pneumonia. The heart is enlarged. LIVER, GALLBLADDER, AND BILIARY TREE: The liver is normal in size, shape, and attenuation. No focal hepatic lesion or biliary ductal dilatation is present. There are gallstones in the gallbladder. PANCREAS: Unremarkable. SPLEEN: Unremarkable. ADRENAL GLANDS: Unremarkable. KIDNEYS AND URETERS: Evaluation of the left kidney is limited due to respiratory motion artifact. There appear to be several adjacent stones in the midpole largest measuring 4 to 5 mm. There are small low-attenuation lesions in the right kidney probably representing cysts. There is asymmetric fat stranding seen in the left retroperitoneum along the course of the left ureter. Left ureter does not appear dilated. No left ureteral stone is seen. There is mild bilateral perinephric fat stranding which appears symmetric. BLADDER: Unremarkable. GASTROINTESTINAL TRACT: There is diverticulosis of the colon. ABDOMINAL WALL: There is a small umbilical hernia containing fat and ascitic fluid. There is a left inguinal hernia containing fat. LYMPH NODES: Normal. There is a small amount of ascites in the abdomen and pelvis. VASCULAR: There is evidence of atherosclerotic disease. PELVIC VISCERA: The prostate gland has been removed. OSSEOUS STRUCTURES: There are degenerative changes of the spine. CT/CT abdomen pelvis wo con IMPRESSION: Limited evaluation of the left kidney due to motion artifact. Left renal stone/stones. No hydronephrosis, ureteral dilatation or ureteral stone. There is asymmetric fat stranding surrounding the left distal ureter. This could be due to a recently passed stone. Probable right renal cysts. Gallstones. Diverticulosis. Small amount of ascites in the abdomen and pelvis. Right pleural effusion and question right lower lobe atelectasis versus small infiltrate. Fleischner guidelines were followed.
--- NOTE | 2021-11-26 09:54 | ED.BACK ---
HPI - Back Pain/Injury General Chief Complaint: Back Pain/Injury Stated Complaint: lower back pain Time Seen by Provider: 11/26/21 09:54 Source: patient Mode of arrival: ambulatory Limitations: no limitations History of Present Illness HPI Narrative: patient with left flank pain has a history of kidney stones. Today he had pain and could not get out of bed. Patient was unable to move do to the pain. No N/V. No dysuria or hematuria. He is complaining of cough with SOB. Patient lives alone. MD elicited complaint: back pain Onset (ago): hour(s) Timing: constant Severity: moderate Quality: sharp Location: lumbar spine Associated symptoms: other (cough and SOB) Related Data Home Medications Medication Instructions Recorded Confirmed melatonin 10 mg tablet 10 mg PO BEDTIME PRN 05/30/20 11/23/21 amiodarone 100 mg tablet 100 mg PO DAILY 10/20/21 11/23/21 ascorbic acid (vitamin C) 500 mg 500 mg PO DAILY 10/20/21 11/23/21 tablet carboxymethylcellulose sodium 0.5 1 drp OPHTHALMIC-LEFT QID 10/20/21 11/23/21 % eye drops cholecalciferol (vitamin D3) 25 25 mcg PO DAILY 10/20/21 11/23/21 mcg (1,000 unit) tablet coenzyme Q10 100 mg capsule 100 mg PO DAILY 10/20/21 11/23/21 (CoQ-10) ferrous sulfate 324 mg (65 mg 324 mg PO BID 10/20/21 11/23/21 iron) tablet,delayed release levothyroxine 75 mcg tablet 75 mcg PO DAILY 10/20/21 11/23/21 (Levoxyl) multivitamin 1 tab PO DAILY 10/20/21 11/23/21 ropinirole 0.25 mg tablet 0.5 mg PO BEDTIME 10/20/21 11/23/21 trazodone 50 mg tablet 50 mg PO BEDTIME PRN 10/20/21 11/23/21 Previous Rx's Medication Instructions Recorded gabapentin 600 mg tablet 600 mg PO BEDTIME 30 Days #30 tab 08/17/21 atorvastatin 80 mg tablet 80 mg PO DAILY #90 tab 10/08/21 metolazone 2.5 mg tablet 2.5 mg PO Q OTHER DAY #30 tab 10/08/21 rivaroxaban 20 mg tablet (Xarelto) 20 mg PO DAILY #90 tab 10/08/21 bumetanide 1 mg tablet 3 mg PO BID 90 Days #540 tab 11/15/21 carvedilol 12.5 mg tablet 12.5 mg PO BID 90 Days #180 tab 11/15/21 potassium citrate 10 mEq (1,080 20 meq PO DAILY #8 tab 11/21/21 mg) tablet,extended release torsemide 20 mg tablet 40 mg PO DAILY #120 tab 11/21/21 Allergies Allergy/AdvReac Type Severity Reaction Status Date / Time lisinopril [LISINOPRIL] Allergy Severe SWELLING/ED Verified 11/15/21 09:14 PAO Review of Systems Constitutional: Constitutional: Reports no additional constitutional complaints Eyes: Eyes: Reports no additional eye complaints ENT: Denies dizziness Cardiovascular: Cardiovascular: Reports no additional cardiovascular complaints Respiratory: Respiratory: Reports as per HPI Gastrointestinal: Gastrointestinal: Reports no additional gastrointestinal complaints Musculoskeletal: Musculoskeletal: Reports no additional musculoskeletal complaints Integumentary/Breasts: Skin/Breast: Denies rash Neurologic: Reports system reviewed and no additional complaints, except as documented, Denies dizziness and Denies Sensory deficit (Neuro) Psychiatric: Psychiatric: Denies anxiety [facility] Past Medical History Medical History Afib Atherosclerotic cardiovascular disease CAD (coronary artery disease) Cataract CHF (congestive heart failure) Chronic systolic (congestive) heart failure Ischemic cardiomyopathy Kidney stone WILLIE (obstructive sleep apnea) PAF (paroxysmal atrial fibrillation) Restless legs syndrome Sinus bradycardia Sleep apnea Typical atrial flutter Surgical History Hx of CABG Family History Family History Father No problems noted. Mother No problems noted. Social History Social History Housing: Other Housing Other:: Independent living Do you presently have visiting nurse or other home services: Yes Alcohol intake: never Patient Tobacco Use Status: Former Tobacco user Advance Directives: Yes Advance Directives on File: Yes Advance Directives Date on File: 10/21/21 service: Yes Current occupational status: retired Physical Exam Vital Signs: Vital Signs: Last Vital Signs Temp 98 F 11/26/21 09:43 Pulse 69 04/01/22 12:05 Resp 14 11/26/21 12:05 BP 112/61 11/26/21 12:05 Pulse Ox 97 11/26/21 12:05 BMI result Body Mass Index 28.7 Const: Other: male in pain Nutritional Appearance: average body habitus Orientation/consciousness: oriented to person and patient oriented x3 Limitations: no limitations HEENT: Head: Yes normal to inspection Ears: external ears normal General nose exam: Normal external nose present Mouth: Normal oral and palatal mucosa present and oropharynx normal Throat: Yes posterior oropharynx normal Eyes: General: appearance normal, both eyes and all related structures Neck: Other: supple Neck: Yes normal visual inspection Chest: Chest palpation & inspection: normal inspection of the chest Resp: Other: decreased BS bilaterally Cardio: Jugular venous distension: no JVD Rate: regular rate Rhythm: regular rhythm Heart sounds: S1 normal heart sound present and S2 normal heart sound present GI: Inspection: Yes normal to inspection Palpation (GI): Soft to palpation, nontender and No hepatosplenomegaly present Auscultation: normal bowel sounds Back/Spine/Pelvis: Other: left SI joint pain and left sciatic notch pain Skin: General skin exam: no rashes or lesions noted Neuro: General: oriented to person and patient oriented x3 Cranial nerves: Yes CN's II-XII intact bilaterally Motor exam (neuro): 5/5 motor strength present throughout Sensory Exam: No Sensory deficit (Neuro) Extrem: Other: chronic bilateral edema Psych: Appearance: grossly normal Course Reevaluation(s) Reevaluation #1: patient with new right sided infiltrate and known 1.3cm stone in the left kidney, patient is hypoxic with cough will admit for pneumonia Time: 12:54 MDM - Back Pain/Injury Lab Data Result diagrams: 11/26/21 10:13 11/26/21 10:13 Labs: Lab Results 11/26/21 11/26/21 11/26/21 Range/Units 10:13 10:13 12:07 WBC 12.1 H (4.8-10.8) X10*3/uL RBC 5.16 (4.60-5.80) X10*6/uL Hgb 12.0 L (14.0-18.0) g/dl Hct 38.2 L (42.0-52.0) % MCV 74.0 L (80.0-98.0) fL MCH 23.3 L (27.0-33.0) pg MCHC 31.4 (31.0-36.0) g/dl RDW 23.1 H (11.0-16.0) % Plt Count 152 L D (160-400) X10*3/uL MPV 10.1 (9.4-12.4) fL Immature Gran % (Auto) 0.5 H (0.0-0.4) % Neut % (Auto) 83.8 H (45-73) % Lymph % (Auto) 3.8 L (20-40) % [place] % (Auto) 10.9 (2-11) % Eos % (Auto) 0.7 (0-4) % Baso % (Auto) 0.3 (0-2) % Lymph # (Auto) 0.5 L (1.2-4.9) X10*3/uL [place] # (Auto) 1.3 H (0.1-1.2) X10*3/uL Eos # (Auto) 0.1 (0.0-0.4) X10*3/uL Baso # (Auto) 0.0 (0.0-0.2) X10*3/uL Abs Immat Gran (auto) 0.06 H (0.00-0.03) X10*3/uL Absolute Neuts (auto) 10.2 H (2.0-8.3) x10*3/uL Absolute Nucleated RBC 0.000 (0.0-0.012) X10*3/uL Nucleated RBC % (auto) 0.0 (0.0-0.2) /100WBC Sodium 140 (135-145) mmol/L Potassium 3.1 L (3.3-5.1) mmol/L Chloride 99 (96-108) mmol/L Carbon Dioxide 28 (22-29) mmol/L Anion Gap 16 (12-20) BUN 26 H (9-16) mg/dL Creatinine 1.36 (0.5-1.4) mg/dL Estim Creat Clear Calc 46.8 Estimated GFR 51 Random Glucose 96 (60-115) mg/dL Calcium 8.9 (8.4-10.2) mg/dL Urine Color YELLOW Urine Appearance CLEAR Urine pH 5.5 (5.0-8.0) Ur Specific [place] 1.025 (1.005-1.025) Urine Protein 2+ H (NEG-TRACE) MG/DL Urine Glucose (UA) NEG (NEG) MG/DL Urine Ketones NEG (NEG) MG/DL Urine Blood 3+ H (NEG) Urine Nitrite NEG (NEG) Ur Leukocyte Esterase NEG (NEG) Urine RBC 15-29 H (0) /HPF Urine WBC 0-2 (0-4) /HPF Ur Squamous Epith Cells 1+ /LPF Urine Bacteria NONE /LPF Imaging Data Chest x-ray: Radiologist's impression: FINDINGS: Chest: The lungs are well-expanded with patchy airspace opacity right lower lobe rest of lungs are clear. There is increased bilateral vascular markings with mild cardiomegaly and evidence of CABG changes. No gross bony abnormality is seen. Lumbar spine: There is normal lumbar lordosis. There is grade 1 anterolisthesis L4 over L5. Loss of L2-L3 disc height is noted. Rest the disc heights are normal. There is mild ventral spondylosis T12-L1 through L2-L3 disc levels. No lytic or sclerotic process seen. The paravertebral soft tissues are normal. XR/XR chest 2V IMPRESSION: Cardiomegaly with CHF. ? Patchy opacity right lung base new since previous study. Elevated right hemidiaphragm is unchanged. 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 ? Grade 1 anterolisthesis L4 over L5. There are degenerative disc changes at the L2-L3. ? Mild spondylosis lower dorsal and upper lumbar spine.? Dictated By: Paul De Leon MD Signed By: <Electronically signed by Paul De Leon MD in OV> 11/26/21 1159 Discharge Plan Discharge Clinical Impression: Pneumonia, Kidney calculi Patient Disposition: Admitted As Inpatient Prescriptions: No Action atorvastatin 80 mg tablet 80 mg PO DAILY Qty: 90 3RF metolazone 2.5 mg tablet 2.5 mg PO Q OTHER DAY Qty: 30 5RF Hold Instructions: Resume on 11/08/21. wait until seen outpatient with cardiology and nephrology Xarelto 20 mg tablet 20 mg PO DAILY Qty: 90 3RF melatonin 10 mg Tablet 10 mg PO BEDTIME PRN (Reason: Insomnia) 0RF multivitamin Tablet 1 tab PO DAILY 0RF trazodone 50 mg Tablet 50 mg PO BEDTIME PRN (Reason: Insomnia) 0RF levothyroxine [Levoxyl] 75 mcg Tablet 75 mcg PO DAILY 0RF ascorbic acid (vitamin C) 500 mg Tablet 500 mg PO DAILY 0RF carboxymethylcellulose sodium 0.5 % drops 1 drp ophthalmic-Left QID 0RF coenzyme Q10 [CoQ-10] 100 mg Capsule 100 mg PO DAILY 0RF cholecalciferol (vitamin D3) 25 mcg (1,000 unit) Tablet 25 mcg PO DAILY 0RF ferrous sulfate 324 mg (65 mg iron) Tablet,Delayed Release (Dr/Ec) 324 mg PO BID 0RF ropinirole 0.25 mg tablet 0.5 mg PO BEDTIME 0RF Rx Instructions: administer 8pm amiodarone 100 mg tablet 100 mg PO DAILY 0RF torsemide 20 mg tablet 40 mg PO DAILY Qty: 120 0RF potassium citrate 10 mEq (1,080 mg) tablet extended release 20 meq PO DAILY Qty: 8 0RF gabapentin 600 mg tablet 600 mg PO BEDTIME 30 Days Qty: 30 6RF bumetanide 1 mg tablet 3 mg PO BID 90 Days Qty: 540 3RF carvedilol 12.5 mg tablet 12.5 mg PO BID 90 Days Qty: 180 3RF
[2021-11-26 10:16] LABS: MANUAL DIFF FLAG NO
[2021-11-26] MEDS: Morphine Sulfate 4 MG/ML CARTRIDGE IVPUSH ×2 (10:16→14:07)
[2021-11-26 10:21] LABS: Basophils Percent Auto 0.3 % (0-2); Eosinophils Absolute Auto 0.1 X10*3/uL (0.0-0.4); Eosinophils Percent Auto 0.7 % (0-4); Hematocrit 38.2 % (42.0-52.0); Imm Gran Abs Auto 0.06 X10*3/uL (0.00-0.03); Imm Gran Pct Auto 0.5 % (0.0-0.4); Lymphocytes Absolute Auto 0.5 X10*3/uL (1.2-4.9); Lymphocytes Percent Auto 3.8 % (20-40); Mean Corpuscular HGB Conc 31.4 g/dl (31.0-36.0); Mean Corpuscular Hemoglobin 23.3 pg (27.0-33.0); Mean Platelet Volume 10.1 fL (9.4-12.4); Monocytes Absolute Auto 1.3 X10*3/uL (0.1-1.2); Monocytes Percent Auto 10.9 % (2-11); Neutrophils Absolute Auto 10.2 x10*3/uL (2.0-8.3); Neutrophils Percent Auto 83.8 % (45-73); Platelet Count 152 X10*3/uL (160-400); Red Blood Count 5.16 X10*6/uL (4.60-5.80); Red Cell Distribution Width 23.1 % (11.0-16.0); White Blood Count 12.1 X10*3/uL (4.8-10.8)
[2021-11-26 10:46] LABS: Anion Gap 16 (12-20); Blood Urea Nitrogen 26 mg/dL (9-16); Calcium 8.9 mg/dL (8.4-10.2); Carbon Dioxide 28 mmol/L (22-29); Chloride 99 mmol/L (96-108); Creatinine Clr Calc Pharmacy 46.8; Estimated Glomerular Filt Rate 51; Glucose Random 96 mg/dL (60-115); Potassium 3.1 mmol/L (3.3-5.1); Sodium 140 mmol/L (135-145)
[2021-11-26 12:32] LABS: Appearance Urine CLEAR; Color Urine YELLOW; Glucose Urine UA NEG (NEG); Leukocyte Esterase Urine NEG (NEG); Nitrite Urine NEG (NEG); PH 5.5 (5.0-8.0); Specific Gravity - Urine 1.025 (1.005-1.025); UACC Culture Trigger NO; Urine Blood 3+ (NEG); Urine Ketones NEG (NEG); Urine Protein 2+ MG/DL (NEG-TRACE)
[2021-11-26 12:44] LABS: Squamous Epithelial Cell Urine 1+ /LPF; WBC Urine 0-2 /HPF (0-4)
[2021-11-26 13:32] LABS: Lactic Acid 1.5 mmol/L (0.5-2.0)
[2021-11-26] MEDS: cefTRIAXone sodium 1 GM in 0.9 % Sodium Chloride 50 ML IV (13:54)
--- NOTE | 2021-11-26 14:17 | PM.IMHP ---
History of Present Illness Date of Service: 11/26/21 Chief Complaint: left flank pain 75-year-old gentleman with past medical history significant for atrial fibrillation, coronary artery disease, congestive heart failure with reduced EF, obstructive sleep apnea on CPAP, restless leg syndrome, history of kidney stones. He was recently dischareged from the hospital after treatment for heart failure related to bradycardia and at that time meds were adjusted. He is presents today with low back and left flank pain that is excruciating and limiting ambulation and activity, he has no neurological changes and no no hematuria, or dysuria. He also c/o of cough and subjective sob. His oxygen saturation is normal normal. He has no fever. CXR shows Patchy opacity right lung base new since previous study. WBC is 12. Lumbar spine xray shows Grade 1 anterolisthesis L4 over L5. There are degenerative disc changes at the L2-L3. Review of Systems Review of Systems: cough, sob, back pain.-- Yes all other systems are reviewed and are negative [facility] Medical History Afib Atherosclerotic cardiovascular disease CAD (coronary artery disease) Cataract CHF (congestive heart failure) Chronic systolic (congestive) heart failure Ischemic cardiomyopathy Kidney stone WILLIE (obstructive sleep apnea) PAF (paroxysmal atrial fibrillation) Restless legs syndrome Sinus bradycardia Sleep apnea Typical atrial flutter Family History Father No problems noted. Mother No problems noted. Surgical History Hx of CABG Social History Household Members: None Housing: Other Housing Other:: Independent living Do you presently have visiting nurse or other home services: Yes Alcohol intake: never Patient Tobacco Use Status: Former Tobacco user Use of substances other than those prescribed or required for medical reasons: No Currently Displaying Signs/Symptoms of Drug Intoxication Withdrawal: No Have you been hit, kicked, punched, or otherwise hurt by someone within the past year? If so, by whom?: No Do you feel safe in your current relationship?: No Current Relationship Is there a partner from a previous relationship who is making you feel unsafe now?: No Are you made to feel afraid or neglected: No Advance Directives: Yes Advance Directives on File: Yes Advance Directives Date on File: 10/21/21 Do you have thoughts of harming others: None Do you have a plan to hurt others: No Plan Recently lost weight without trying: No Eating poorly because of decreased appetite: No Nutrition Risks: No Nutritional Risk service: Yes Current occupational status: retired Meds Allergies Allergy/AdvReac Type Severity Reaction Status Date / Time lisinopril [LISINOPRIL] Allergy Severe SWELLING/ED Verified 11/15/21 09:14 PAO Active Medications: Current Medications Azithromycin 500 mg/ Sodium (Chloride) 250 mls @ 125 mls/hr IV ONCE ONE Stop: 11/26/21 14:45 Pharmacy Consult (Consult Rx Perform Med Rec) 1 each MISCELLANE ONCE PRN PRN Reason: Consult order Home Medications Medication Instructions Recorded Confirmed Last Taken Type melatonin 10 mg tablet 10 mg PO BEDTIME PRN 05/30/20 11/26/21 11/17/21 History carboxymethylcellulose sodium 0.5 1 drp OPHTHALMIC-LEFT QID 10/20/21 11/26/21 11/18/21 History % eye drops cholecalciferol (vitamin D3) 25 25 mcg PO DAILY 10/20/21 11/26/21 11/18/21 History mcg (1,000 unit) tablet ferrous sulfate 324 mg (65 mg 324 mg PO BID 10/20/21 11/26/21 11/18/21 History iron) tablet,delayed release levothyroxine 75 mcg tablet 75 mcg PO DAILY 10/20/21 11/26/21 11/18/21 History (Levoxyl) multivitamin 1 tab PO DAILY 10/20/21 11/26/21 11/18/21 History trazodone 50 mg tablet 25 mg PO BEDTIME PRN 10/20/21 11/26/21 11/17/21 History atorvastatin 80 mg tablet 80 mg PO BEDTIME 11/26/21 11/26/21 Unknown History doxycycline hyclate 100 mg tablet 100 mg PO BID 11/26/21 11/26/21 Unknown History Physical Exam Vital Signs and Narrative: Vital Signs: Last Vital Signs Temp 98 F 11/26/21 09:43 Pulse 69 11/26/21 12:05 Resp 14 11/26/21 12:05 BP 112/61 04/01/22 12:05 Pulse Ox 97 11/26/21 12:05 BMI result Body Mass Index 28.7 Const: Other: Constitutional: Alert, in no distress, overweight. Mental Status: Oriented to person, place and time. Eyes: Pupils are equal, round and reactive to light. Ear, Nose and Throat: Oropharynx clear, mucous membranes moist. Ears and nose without eformities. Trachea midline. Respiratory: Clear to auscultation. No wheezing, rales or rhonchi. Cardiovascular: S1 S2 regular. No murmurs, rubs or gallops. Gastrointestinal: Abdomen soft, non-tender, non-distended. Normal bowel sounds.? Neurologic: Cranial nerves II-XII grossly intact. No focal neurological deficits. Moves all extremities spontaneously.? [place]: no back tenderness Skin: No rashes or lesions.? Musculoskeletal: No cyanosis or clubbing. Psychiatric: Normal mood and affect? Results Labs CBC and Chem 7: 11/26/21 10:13 11/26/21 10:13 Labs: Laboratory Results - last 24 hr 11/26/21 11/26/21 11/26/21 10:13 10:13 12:07 MCV 74.0 L MCH 23.3 L MCHC 31.4 RDW 23.1 H Plt Count 152 L D MPV 10.1 Immature Gran % (Auto) 0.5 H Neut % (Auto) 83.8 H Lymph % (Auto) 3.8 L [place] % (Auto) 10.9 Eos % (Auto) 0.7 Baso % (Auto) 0.3 Lymph # (Auto) 0.5 L [place] # (Auto) 1.3 H Eos # (Auto) 0.1 Baso # (Auto) 0.0 Abs Immat Gran (auto) 0.06 H Absolute Neuts (auto) 10.2 H Absolute Nucleated RBC 0.000 Nucleated RBC % (auto) 0.0 Anion Gap 16 Estim Creat Clear Calc 46.8 Estimated GFR 51 Random Glucose 96 Lactic Acid Calcium 8.9 Urine Color YELLOW Urine Appearance CLEAR Urine pH 5.5 Ur Specific [place] 1.025 Urine Protein 2+ H Urine Glucose (UA) NEG Urine Ketones NEG Urine Blood 3+ H Urine Nitrite NEG Ur Leukocyte Esterase NEG Urine RBC 15-29 H Urine WBC 0-2 Ur Squamous Epith Cells 1+ Urine Bacteria NONE 11/26/21 13:08 MCV MCH MCHC RDW Plt Count MPV Immature Gran % (Auto) Neut % (Auto) Lymph % (Auto) [place] % (Auto) Eos % (Auto) Baso % (Auto) Lymph # (Auto) [place] # (Auto) Eos # (Auto) Baso # (Auto) Abs Immat Gran (auto) Absolute Neuts (auto) Absolute Nucleated RBC Nucleated RBC % (auto) Anion Gap Estim Creat Clear Calc Estimated GFR Random Glucose Lactic Acid 1.5 Calcium Urine Color Urine Appearance Urine pH Ur Specific [place] Urine Protein Urine Glucose (UA) Urine Ketones Urine Blood Urine Nitrite Ur Leukocyte Esterase Urine RBC Urine WBC Ur Squamous Epith Cells Urine Bacteria Imaging Radiologist's Impressions: Impressions Chest X-Ray 11/26/21 11:25 IMPRESSION: Cardiomegaly with CHF. Patchy opacity right lung base new since previous study. Elevated right hemidiaphragm is unchanged. 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 Grade 1 anterolisthesis L4 over L5. There are degenerative disc changes at the L2-L3. Mild spondylosis lower dorsal and upper lumbar spine. Lumbar Spine X-Ray 11/26/21 11:25 IMPRESSION: Cardiomegaly with CHF. Patchy opacity right lung base new since previous study. Elevated right hemidiaphragm is unchanged. 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 Grade 1 anterolisthesis L4 over L5. There are degenerative disc changes at the L2-L3. Mild spondylosis lower dorsal and upper lumbar spine. Assessment and Plan (1) Pneumonia: Status: Acute (2) Kidney calculi: Status: Acute Plan 75/ yo male presenting with back and left flank pain and has PNA, possible CHF 1/ Back pain--could be related to DJD--get CT to rule out stones and pain mangement, PT eval tomorrow if pain persists or has neurological changes I would do MRI 2/PNA--AZithro and Ceftriaoxone, get covid 3/Heart failure--check BNP if more than baseline, IV diuretics 4/AFIB--rate controlled, continue Xarelto 5/?hyperlipidemia continue statins Quality Stroke Does the patient have a stroke diagnosis?: No VTE Prior VTE?: No VTE Risk Level:: Medical - moderate - high VTE Device Contraindication: Treatment Not Indicated VTE Drug Contraindication: N/A - Med Ordered
[2021-11-26] MEDS: Azithromycin 500 MG in 0.9 % Sodium Chloride 250 ML 125 MG IV (14:37)
--- NOTE | 2021-11-26 15:17 | PHA.MEDREC ---
Addendum entered by Amy Oh [facility] 11/26/21 15:45: ALSO PT REQUESTED TO STOP GABAPENTIN AND ROPINIROLE AT HIS NEUROLOGY SLEEP APPT FOR HIS RESTLESS LEG ON 11/21/21 Original Note: med rec complete, patient is not a good historian, seems very drowsy unable to answer some questions. Recently discharged, per discharge notes amiodarone and carvedilol are on hold until cardiology decides. Pharmacy Consult ? Medication Reconciliation Pharmacy has completed the medication reconciliation.
--- NOTE | 2021-11-26 17:07 | PC.NURSE ---
PATIENT ARRIVED TO OVERFLOW ,PATIENT WAS CHANGE INTO HOSPITAL ATTIRE AND VITALS WERE TAKEN .
[2021-11-26 17:37] LABS: COVID-19 Test Negative (Negative); IDNOW Serial# 16C4AD1C
[2021-11-26] MEDS: 0.9 % Sodium Chloride Flush 3 ML SYRINGE IVFLUSH ×2 (17:45→18:44)
[2021-11-26] MEDS: Morphine Sulfate 2 MG/ML CARTRIDGE IVPUSH (20:52)
[2021-11-26] MEDS: Atorvastatin Calcium 80 MG TABLET PO (20:55)
--- NOTE | 2021-11-26 21:12 | PC.NURSE ---
Addendum entered by Patsy Martinez RN 11/26/21 22:14: This rn attempted to call daughter, Phuong, to update patient is being transferred to [facility] room 371, no answer. Addendum entered by Patsy Martinez RN 11/26/21 21:26: Patient's daughter, Phuong Yeung [phone] would like to be contacted with any updates, would like to be notified when patient is transferred into a private room/different floor. Original Note: This nurse took over patient's care at 1900, patient is alert and oriented x3. l/s clear, currently on 2 liters via n/c, nonpitting edema noted to bilateral lower legs. Patient reports 10/10 left flank, and lower back pain, medicated with prn morphine per emar, vss. Patient using bedside urinal, emptied for 150 mls erma urine.
--- NOTE | 2021-11-26 22:16 | PC.NURSE ---
Report given to edith foster rn. Patient to be transferred to room 371. Patient belongings transported with patient by ceramics machine operator.
[2021-11-27] VITALS: BP 114/65; PULSE 104; RESP 18; TEMP 36.6; O2SAT 95
[2021-11-27] MEDS: Morphine Sulfate 2 MG/ML CARTRIDGE IVPUSH ×2 (02:28→19:30)
[2021-11-27 03:56] VITALS: BP 112/58; PULSE 75; RESP 17; TEMP 36.8; O2SAT 95
--- NOTE | 2021-11-27 04:20 | PC.NURSE ---
LAB CALLED WITH CRITICAL 1/2 BLOOD CULTURES GRAM POSITIVE COCCI IN CLUSTERS. NOTIFIED.ORDERED IV ZITHROMAX AND IV ROCEPHIN.
[2021-11-27] MEDS: Levothyroxine Sodium 75 MCG TABLET PO (05:27)
[2021-11-27] MEDS: 0.9 % Sodium Chloride Flush 3 ML SYRINGE IVFLUSH ×3 (08:37→20:23)
[2021-11-27] MEDS: cefTRIAXone sodium 1 GM in 0.9 % Sodium Chloride 50 ML IV (08:40)
[2021-11-27] MEDS: Azithromycin 500 MG in 0.9 % Sodium Chloride 250 ML 125 MG IV (08:40)
[2021-11-27] MEDS: metOLazone 2.5 MG TABLET PO (08:41)
[2021-11-27] MEDS: Torsemide 20 MG TABLET 40 MG PO (08:41)
[2021-11-27] MEDS: Cholecalciferol (Vitamin D3) 25 MCG TABLET PO (08:41)
[2021-11-27] MEDS: Acetaminophen 325 MG TABLET 650 MG PO (08:41)
--- NOTE | 2021-11-27 09:10 | P.PNIM_ITS ---
Subjective Subjective Date of Service: 11/28/21 Physical Exam Vital Signs: Vital Signs: Last Vital Signs Temp 98.2 F 11/27/21 03:56 Pulse 75 11/27/21 03:56 Resp 17 11/27/21 03:56 BP 112/58 L 11/27/21 03:56 Pulse Ox 95 11/27/21 03:56 BMI result Body Mass Index 28.7 Const: Other: General: AO X 3, no acute distress Resp: CTA bilateral CVS: S1,S2,RRR GI: +BS, NT, no distention Skin: No rash, pressure ulcers at the heels Neuro: motor grossly intact, no numbness Psych: appropriate affect Objective Data Active Medications Acetaminophen (Acetaminophen 325 Mg Tablet) 650 mg PO Q6H PRN PRN Reason: Pain, Mild (Pain Scale 1-3) Last Admin: 11/27/21 08:41 Dose: 650 mg Documented by: CHICHI Atorvastatin Calcium (Atorvastatin Calcium 80 Mg Tablet) 80 mg PO BEDTIME [facility] Last Admin: 11/26/21 20:55 Dose: 80 mg Documented by: NIKO Ceftriaxone Sodium 1 gm/ (Sodium Chloride) 50 mls @ 100 mls/hr IV Q24H [facility] Last Admin: 11/27/21 08:40 Dose: 100 mls/hr Documented by: CHICHI Azithromycin 500 mg/ Sodium (Chloride) 250 mls @ 125 mls/hr IV Q24H [facility] Last Admin: 11/27/21 08:40 Dose: 125 mls/hr Documented by: CHICHI Levothyroxine Sodium (Levothyroxine Sodium 75 Mcg Tablet) 75 mcg PO DAILY@0600 [facility] Last Admin: 11/27/21 05:27 Dose: 75 mcg Documented by: TORY Magnesium Hydroxide (Milk Of Magnesia 30 Ml Oral.Susp) 30 ml PO DAILY PRN PRN Reason: Constipation Melatonin (Melatonin 3 Mg Tablet) 3 mg PO BEDTIME PRN PRN Reason: Insomnia Metolazone (Metolazone 2.5 Mg Tablet) 2.5 mg PO Q2D@0900 [facility] Last Admin: 11/27/21 08:41 Dose: 2.5 mg Documented by: CHICHI Morphine Sulfate (Morphine Sulfate 2 Mg/Ml Cartridge) 2 mg IVPUSH Q4H PRN; Protocol PRN Reason: Pain, Severe (Pain Scale 7-10) Last Admin: 11/27/21 02:28 Dose: 2 mg Documented by: TORY Non-Formulary Medication (Carboxymethylcellulose Sodium) 1 drop EYE-LEFT QID [facility] Last Admin: 11/26/21 20:58 Dose: Not Given Documented by: NIKO Non-Admin Reason: Med Not Available Pharmacy Consult (Consult Rx Perform Med Rec) 1 each MISCELLANE ONCE PRN PRN Reason: Consult order Pharmacy Consult (Consult Rx Perform Med Rec) 1 each MISCELLANE ONCE PRN PRN Reason: Consult order Rivaroxaban (Rivaroxaban 20 Mg Tablet) 20 mg PO DAILY@1700 [facility] Sodium Chloride (0.9 % Sodium Chloride Flush 3 Ml Syringe) 3 ml IVFLUSH QSHIFT [facility] Last Admin: 11/27/21 08:37 Dose: 3 ml Documented by: CHICHI Torsemide (Torsemide 20 Mg Tablet) 40 mg PO DAILY [facility]; Protocol Last Admin: 11/27/21 08:41 Dose: 40 mg Documented by: CHICHI Trazodone HCl (Trazodone Hcl 25 Mg Halftab) 25 mg PO BEDTIME PRN PRN Reason: Insomnia Vitamin D (Cholecalciferol (Vitamin D3) 25 Mcg Tablet) 25 mcg PO DAILY [facility] Last Admin: 11/27/21 08:41 Dose: 25 mcg Documented by: CHICHI Labs CBC & Chem 7: 11/26/21 10:13 11/26/21 10:13 Labs: Laboratory Results - last 24 hr 11/26/21 11/26/21 11/26/21 10:13 10:13 12:07 MCV 74.0 L MCH 23.3 L MCHC 31.4 RDW 23.1 H Plt Count 152 L D MPV 10.1 Immature Gran % (Auto) 0.5 H Neut % (Auto) 83.8 H Lymph % (Auto) 3.8 L Harris % (Auto) 10.9 Eos % (Auto) 0.7 Baso % (Auto) 0.3 Lymph # (Auto) 0.5 L Harris # (Auto) 1.3 H Eos # (Auto) 0.1 Baso # (Auto) 0.0 Abs Immat Gran (auto) 0.06 H Absolute Neuts (auto) 10.2 H Absolute Nucleated RBC 0.000 Nucleated RBC % (auto) 0.0 Anion Gap 16 Estim Creat Clear Calc 46.8 Estimated GFR 51 Random Glucose 96 Lactic Acid Calcium 8.9 Urine Color YELLOW Urine Appearance CLEAR Urine pH 5.5 Ur Specific [place] 1.025 Urine Protein 2+ H Urine Glucose (UA) NEG Urine Ketones NEG Urine Blood 3+ H Urine Nitrite NEG Ur Leukocyte Esterase NEG Urine RBC 15-29 H Urine WBC 0-2 Ur Squamous Epith Cells 1+ Urine Bacteria NONE COVID-19 (JALIL) COVID-19 Clin Com 11/26/21 11/26/21 13:08 17:14 MCV MCH MCHC RDW Plt Count MPV Immature Gran % (Auto) Neut % (Auto) Lymph % (Auto) Harris % (Auto) Eos % (Auto) Baso % (Auto) Lymph # (Auto) Harris # (Auto) Eos # (Auto) Baso # (Auto) Abs Immat Gran (auto) Absolute Neuts (auto) Absolute Nucleated RBC Nucleated RBC % (auto) Anion Gap Estim Creat Clear Calc Estimated GFR Random Glucose Lactic Acid 1.5 Calcium Urine Color Urine Appearance Urine pH Ur Specific [place] Urine Protein Urine Glucose (UA) Urine Ketones Urine Blood Urine Nitrite Ur Leukocyte Esterase Urine RBC Urine WBC Ur Squamous Epith Cells Urine Bacteria COVID-19 (JALIL) Negative COVID-19 Clin Com See Note Microbiology Microbiology Results: Microbiology 11/26/21 13:08 Blood Culture - Preliminary Blood - Venous Prelim: GPC Gram Stain only 11/26/21 13:08 Blood Culture - Preliminary Blood - Venous Prelim: GPC Gram Stain only Assessment and Plan (1) Pneumonia: Status: Acute (2) Kidney calculi: Status: Acute (3) Back pain: Status: Acute Plan 75/ yo male with AFIB, recent admission for heart failure bradycardia presenting with back and left flank pain and has PNA, possible CHF 1/ Back pain--could be related to DJD or kidney stone, CT shows left kidney stones but no obstruction and possible finding suggetive of passed stone. -has no urinary or stool incontinence -Uro consult -pain management -PT eval -if not improving will request MRI 2/PNA--AZithro and Ceftriaoxone, 3/Heart failure--no clinical finding of acute heart failure 4/AFIB--rate controlled, continue Xarelto..Amio and coreg have been on hold d/t recent sully HR is well controlled. 5/?hyperlipidemia continue statins code: Full Inaptient need for Pneumonia needign IV Abx, work up for back pain causing diffuclty ambulating. Quality Stroke Does the patient have a stroke diagnosis?: No VTE Prior VTE?: No VTE Risk Level:: Medical - moderate - high VTE Device Contraindication: Treatment Not Indicated VTE Drug Contraindication: N/A - Med Ordered
--- NOTE | 2021-11-27 11:49 | MHC.CM.PN ---
PATIENT LIVES IN INDEPENDENT LIVING AT [facility] HE HAS A NEW MOTORIZED SCOOTER THAT WAS JUST DELIVERED ON MONDAY, BATHROOM HAND RAILS, AND A WALKER IF NEEDED FACILITY OFFERS RN SKILLS, PT, AND OT. HCP, POA, AND LIVING WILL ON FILE AND VERIFIED. DAUGHTER GAMAL IN ROOM SHE STATES THAT SHE WILL PROVIDE TRANSPORT HOME AT TIME OF DISCHARGE. COVID VACCINATED. NO PLAN FOR DC TODAY IMM 11/27 IN CHART
[2021-11-27 12:00] VITALS: BP 98/54; PULSE 68; RESP 18; TEMP 36.6; O2SAT 94
[2021-11-27 15:30] VITALS: BP 103/60; PULSE 96; RESP 18; TEMP 35.8; O2SAT 96
[2021-11-27] MEDS: Rivaroxaban 20 MG TABLET PO (16:06)
[2021-11-27 19:12] VITALS: BP 103/54; PULSE 76; RESP 18; TEMP 37.1; O2SAT 98
[2021-11-27] MEDS: Atorvastatin Calcium 80 MG TABLET PO (20:23)
[2021-11-28] VITALS (7 sets, daily range): BP systolic 94–115; BP diastolic 54–60; PULSE 67–99; RESP 17–18; TEMP 36.6–37.6; O2SAT 91–97
[2021-11-28] MEDS: Morphine Sulfate 2 MG/ML CARTRIDGE IVPUSH ×2 (00:32→20:37)
[2021-11-28] MEDS: Levothyroxine Sodium 75 MCG TABLET PO (05:50)
[2021-11-28] MEDS: 0.9 % Sodium Chloride Flush 3 ML SYRINGE IVFLUSH ×3 (07:59→20:18)
[2021-11-28] MEDS: Azithromycin 500 MG in 0.9 % Sodium Chloride 250 ML 125 MG IV (08:06)
[2021-11-28] MEDS: cefTRIAXone sodium 1 GM in 0.9 % Sodium Chloride 50 ML IV (08:07)
[2021-11-28] MEDS: Torsemide 20 MG TABLET 40 MG PO (08:08)
[2021-11-28] MEDS: Acetaminophen 325 MG TABLET 650 MG PO ×2 (08:08→16:11)
[2021-11-28] MEDS: Cholecalciferol (Vitamin D3) 25 MCG TABLET PO (08:08)
--- NOTE | 2021-11-28 09:42 | P.PNIM_ITS ---
Subjective Subjective Date of Service: 11/28/21 Interval History: F/u on PNA Interval history: no sob, back pain is better, no numness or weakness in the leg, no urinary or stool incontinene Review of Systems no cough, no sob, +back pain.-- Physical Exam Vital Signs: Vital Signs: Last Vital Signs Temp 99.7 F 11/28/21 07:33 Pulse 67 11/28/21 07:33 Resp 18 11/28/21 07:33 BP 98/57 L 11/28/21 07:33 Pulse Ox 91 L 11/28/21 07:33 BMI result Body Mass Index 28.7 Const: Other: General: AO X 3, no acute distress Resp: CTA bilateral CVS: S1,S2,RRR GI: +BS, NT, no distention Skin: No rash, pressure ulcers at the heels Neuro: motor grossly intact, no numbness Psych: appropriate affect Objective Data Active Medications Acetaminophen (Acetaminophen 325 Mg Tablet) 650 mg PO Q6H PRN PRN Reason: Pain, Mild (Pain Scale 1-3) Last Admin: 11/28/21 08:08 Dose: 650 mg Documented by: CHICHI Atorvastatin Calcium (Atorvastatin Calcium 80 Mg Tablet) 80 mg PO BEDTIME [facility] Last Admin: 11/27/21 20:23 Dose: 80 mg Documented by: TORY Ceftriaxone Sodium 1 gm/ (Sodium Chloride) 50 mls @ 100 mls/hr IV Q24H [facility] Last Admin: 11/28/21 08:07 Dose: 100 mls/hr Documented by: CHICHI Azithromycin 500 mg/ Sodium (Chloride) 250 mls @ 125 mls/hr IV Q24H [facility] Last Admin: 11/28/21 08:06 Dose: 125 mls/hr Documented by: CHICHI Levothyroxine Sodium (Levothyroxine Sodium 75 Mcg Tablet) 75 mcg PO DAILY@0600 [facility] Last Admin: 11/28/21 05:50 Dose: 75 mcg Documented by: TORY Magnesium Hydroxide (Milk Of Magnesia 30 Ml Oral.Susp) 30 ml PO DAILY PRN PRN Reason: Constipation Melatonin (Melatonin 3 Mg Tablet) 3 mg PO BEDTIME PRN PRN Reason: Insomnia Metolazone (Metolazone 2.5 Mg Tablet) 2.5 mg PO Q2D@0900 [facility] Last Admin: 11/27/21 08:41 Dose: 2.5 mg Documented by: CHICHI Morphine Sulfate (Morphine Sulfate 2 Mg/Ml Cartridge) 2 mg IVPUSH Q4H PRN; Protocol PRN Reason: Pain, Severe (Pain Scale 7-10) Last Admin: 11/28/21 00:32 Dose: 2 mg Documented by: TORY Non-Formulary Medication (Carboxymethylcellulose Sodium) 1 drop EYE-LEFT QID [facility] Last Admin: 11/28/21 08:07 Dose: Not Given Documented by: CHICHI Non-Admin Reason: Med Not Available Pharmacy Consult (Consult Rx Perform Med Rec) 1 each MISCELLANE ONCE PRN PRN Reason: Consult order Pharmacy Consult (Consult Rx Perform Med Rec) 1 each MISCELLANE ONCE PRN PRN Reason: Consult order Rivaroxaban (Rivaroxaban 20 Mg Tablet) 20 mg PO DAILY@1700 [facility] Last Admin: 11/27/21 16:06 Dose: 20 mg Documented by: CHICHI Sodium Chloride (0.9 % Sodium Chloride Flush 3 Ml Syringe) 3 ml IVFLUSH QSHIFT [facility] Last Admin: 11/28/21 07:59 Dose: 3 ml Documented by: CHICHI Torsemide (Torsemide 20 Mg Tablet) 40 mg PO DAILY [facility]; Protocol Last Admin: 11/28/21 08:08 Dose: 40 mg Documented by: CHICHI Trazodone HCl (Trazodone Hcl 25 Mg Halftab) 25 mg PO BEDTIME PRN PRN Reason: Insomnia Vitamin D (Cholecalciferol (Vitamin D3) 25 Mcg Tablet) 25 mcg PO DAILY [facility] Last Admin: 11/28/21 08:08 Dose: 25 mcg Documented by: CHICHI Labs CBC & Chem 7: 11/26/21 10:13 11/26/21 10:13 Microbiology Microbiology Results: Microbiology 11/26/21 13:08 Blood Culture - Preliminary Blood - Venous Prelim: GPC Gram Stain only 11/26/21 13:08 Blood Culture - Preliminary Blood - Venous Prelim: GPC Gram Stain only Assessment and Plan (1) Pneumonia: Status: Acute (2) Kidney calculi: Status: Acute (3) Back pain: Status: Acute Plan 75/ yo male with AFIB, recent admission for heart failure bradycardia presenting with back and left flank pain and has PNA, possible CHF 1/ Back pain--could be related to DJD or kidney stone, CT shows left kidney stones but no obstruction and possible finding suggetive of passed stone. he says pain is better today, he decline PT yesterday -has no urinary or stool incontinence -Uro consult -pain management -PT eval -Request MRI 2/PNA--AZithro and Ceftriaoxone, 3/Heart failure--no clinical finding of acute heart failure 4/AFIB--rate controlled, continue Xarelto..Amio and coreg have been on hold d/t recent sully, HR is well controlled. 5/?hyperlipidemia continue statins code: Full Inaptient need for Pneumonia needign IV Abx, work up for back pain causing diffuclty ambulating. PT will reassess tomorrow Will discuss with daughter Quality Stroke Does the patient have a stroke diagnosis?: No VTE Prior VTE?: No VTE Risk Level:: Medical - moderate - high VTE Device Contraindication: Treatment Not Indicated VTE Drug Contraindication: N/A - Med Ordered
--- NOTE | 2021-11-28 10:19 | PM.UROCN ---
History of Present Illness Consult details Consult date: 11/28/21 Reason for consult: other ( history of renal stones with flank pain patient CT scan review patient has no stones in his ureter lesions only residing kidney inch in should not be the cause of his pain. Currently no urologic reason for describe pain. Patient follow-up with Dr. Perdomo as an outpatient. Thank for the consult) Requesting physician: Duane Kaiser [facility] Past Medical History Medical History Afib Atherosclerotic cardiovascular disease CAD (coronary artery disease) Cataract CHF (congestive heart failure) Chronic systolic (congestive) heart failure Ischemic cardiomyopathy Kidney stone WILLIE (obstructive sleep apnea) PAF (paroxysmal atrial fibrillation) Restless legs syndrome Sinus bradycardia Sleep apnea Typical atrial flutter Family History Family History Father No problems noted. Mother No problems noted. Surgical History Surgical History Hx of CABG Social History Social History Household Members: None Housing: Other Housing Other:: Independent living Do you presently have visiting nurse or other home services: Yes Alcohol intake: never Patient Tobacco Use Status: Former Tobacco user Use of substances other than those prescribed or required for medical reasons: No Currently Displaying Signs/Symptoms of Drug Intoxication Withdrawal: No Have you been hit, kicked, punched, or otherwise hurt by someone within the past year? If so, by whom?: No Do you feel safe in your current relationship?: No Current Relationship Is there a partner from a previous relationship who is making you feel unsafe now?: No Are you made to feel afraid or neglected: No Advance Directives: Yes Advance Directives on File: Yes Advance Directives Date on File: 10/21/21 Do you have thoughts of harming others: None Do you have a plan to hurt others: No Plan Recently lost weight without trying: No Eating poorly because of decreased appetite: No Nutrition Risks: No Nutritional Risk service: Yes Current occupational status: retired Meds Allergies Allergy/AdvReac Type Severity Reaction Status Date / Time lisinopril [LISINOPRIL] Allergy Severe SWELLING/ED Verified 11/15/21 09:14 PAO Active Medications: Current Medications Acetaminophen (Acetaminophen 325 Mg Tablet) 650 mg PO Q6H PRN PRN Reason: Pain, Mild (Pain Scale 1-3) Last Admin: 11/28/21 08:08 Dose: 650 mg Documented by: Atorvastatin Calcium (Atorvastatin Calcium 80 Mg Tablet) 80 mg PO BEDTIME [facility] Last Admin: 11/27/21 20:23 Dose: 80 mg Documented by: Ceftriaxone Sodium 1 gm/ (Sodium Chloride) 50 mls @ 100 mls/hr IV Q24H [facility] Last Admin: 11/28/21 08:07 Dose: 100 mls/hr Documented by: Azithromycin 500 mg/ Sodium (Chloride) 250 mls @ 125 mls/hr IV Q24H [facility] Last Admin: 11/28/21 08:06 Dose: 125 mls/hr Documented by: Levothyroxine Sodium (Levothyroxine Sodium 75 Mcg Tablet) 75 mcg PO DAILY@0600 [facility] Last Admin: 11/28/21 05:50 Dose: 75 mcg Documented by: Magnesium Hydroxide (Milk Of Magnesia 30 Ml Oral.Susp) 30 ml PO DAILY PRN PRN Reason: Constipation Melatonin (Melatonin 3 Mg Tablet) 3 mg PO BEDTIME PRN PRN Reason: Insomnia Metolazone (Metolazone 2.5 Mg Tablet) 2.5 mg PO Q2D@0900 [facility] Last Admin: 11/27/21 08:41 Dose: 2.5 mg Documented by: Morphine Sulfate (Morphine Sulfate 2 Mg/Ml Cartridge) 2 mg IVPUSH Q4H PRN; Protocol PRN Reason: Pain, Severe (Pain Scale 7-10) Last Admin: 11/28/21 00:32 Dose: 2 mg Documented by: Morphine Sulfate (Morphine Sulfate 2 Mg/Ml Cartridge) 2 mg IVPUSH Q6H PRN; Protocol PRN Reason: Pain, Severe (Pain Scale 7-10) Non-Formulary Medication (Carboxymethylcellulose Sodium) 1 drop EYE-LEFT QID [facility] Last Admin: 11/28/21 08:07 Dose: Not Given Documented by: Pharmacy Consult (Consult Rx Perform Med Rec) 1 each MISCELLANE ONCE PRN PRN Reason: Consult order Pharmacy Consult (Consult Rx Perform Med Rec) 1 each MISCELLANE ONCE PRN PRN Reason: Consult order Rivaroxaban (Rivaroxaban 20 Mg Tablet) 20 mg PO DAILY@1700 [facility] Last Admin: 11/27/21 16:06 Dose: 20 mg Documented by: Sodium Chloride (0.9 % Sodium Chloride Flush 3 Ml Syringe) 3 ml IVFLUSH QSHIFT [facility] Last Admin: 11/28/21 07:59 Dose: 3 ml Documented by: Torsemide (Torsemide 20 Mg Tablet) 40 mg PO DAILY [facility]; Protocol Last Admin: 11/28/21 08:08 Dose: 40 mg Documented by: Trazodone HCl (Trazodone Hcl 25 Mg Halftab) 25 mg PO BEDTIME PRN PRN Reason: Insomnia Vitamin D (Cholecalciferol (Vitamin D3) 25 Mcg Tablet) 25 mcg PO DAILY [facility] Last Admin: 11/28/21 08:08 Dose: 25 mcg Documented by: Home Medications Medication Instructions Recorded Confirmed Last Taken Type melatonin 10 mg tablet 10 mg PO BEDTIME PRN 05/30/20 11/26/21 11/17/21 History carboxymethylcellulose sodium 0.5 1 drp OPHTHALMIC-LEFT QID 10/20/21 11/26/21 11/18/21 History % eye drops cholecalciferol (vitamin D3) 25 25 mcg PO DAILY 10/20/21 11/26/21 11/18/21 History mcg (1,000 unit) tablet ferrous sulfate 324 mg (65 mg 324 mg PO BID 10/20/21 11/26/21 11/18/21 History iron) tablet,delayed release levothyroxine 75 mcg tablet 75 mcg PO DAILY 10/20/21 11/26/21 11/18/21 History (Levoxyl) multivitamin 1 tab PO DAILY 10/20/21 11/26/21 11/18/21 History trazodone 50 mg tablet 25 mg PO BEDTIME PRN 10/20/21 11/26/21 11/17/21 History atorvastatin 80 mg tablet 80 mg PO BEDTIME 11/26/21 11/26/21 Unknown History doxycycline hyclate 100 mg tablet 100 mg PO BID 11/26/21 11/26/21 Unknown History Physical Exam Vital Signs: Vital Signs: Last Vital Signs Temp 99.7 F 11/28/21 07:33 Pulse 67 11/28/21 07:33 Resp 18 11/28/21 07:33 BP 98/57 L 11/28/21 07:33 Pulse Ox 91 L 11/28/21 07:33 BMI result Body Mass Index 28.7 Results Labs Result diagrams: 11/26/21 10:13 11/26/21 10:13 Labs: Urine 11/26/21 Range/Units 12:07 Urine Color YELLOW Urine Appearance CLEAR Urine pH 5.5 (5.0-8.0) Ur Specific [place] 1.025 (1.005-1.025) Urine Protein 2+ H (NEG-TRACE) MG/DL Urine Glucose (UA) NEG (NEG) MG/DL All other labs normal. Assessment and Plan (1) Back pain: Status: Acute Procedures Date of Service Date of Service: 11/28/21
[2021-11-28] MEDS: Rivaroxaban 20 MG TABLET PO (16:11)
[2021-11-28] MEDS: Atorvastatin Calcium 80 MG TABLET PO (20:14)
[2021-11-28] MEDS: Milk of Magnesia 30 ML ORAL.SUSP PO (20:22)
[2021-11-29] MEDS: Morphine Sulfate 2 MG/ML CARTRIDGE IVPUSH ×4 (01:10→19:28)
[2021-11-29 04:00] VITALS: BP 94/53; PULSE 71; RESP 17; TEMP 36.4; O2SAT 93
[2021-11-29] MEDS: Levothyroxine Sodium 75 MCG TABLET PO (05:32)
[2021-11-29 06:56] VITALS: BP 120/59; PULSE 87; RESP 20; TEMP 36.1; O2SAT 92
[2021-11-29] MEDS: Torsemide 20 MG TABLET 40 MG PO (08:08)
[2021-11-29] MEDS: Cholecalciferol (Vitamin D3) 25 MCG TABLET PO (08:08)
[2021-11-29] MEDS: metOLazone 2.5 MG TABLET PO (08:08)
[2021-11-29] MEDS: 0.9 % Sodium Chloride Flush 3 ML SYRINGE IVFLUSH ×3 (08:09→19:29)
[2021-11-29] MEDS: cefTRIAXone sodium 1 GM in 0.9 % Sodium Chloride 50 ML IV (08:09)
--- NOTE | 2021-11-29 09:00 | P.PNIM_ITS ---
Subjective Subjective Date of Service: 11/29/21 Interval History: F/u on PNA Interval history: no sob, back pain is better, no numness or weakness in the leg, no urinary or stool incontinene, c'/o some bladder spasm this morning Review of Systems no cough, no sob, +back pain.-- Physical Exam Vital Signs: Vital Signs: Last Vital Signs Temp 97 F 11/29/21 06:56 Pulse 87 11/29/21 06:56 Resp 20 11/29/21 06:56 BP 120/59 L 11/29/21 06:56 Pulse Ox 92 11/29/21 06:56 BMI result Body Mass Index 28.7 Const: Other: General: AO X 3, no acute distress Resp: CTA bilateral CVS: S1,S2,RRR GI: +BS, NT, no distention Skin: No rash, pressure ulcers at the heels Neuro: motor grossly intact, no numbness Psych: appropriate affect Objective Data Active Medications Acetaminophen (Acetaminophen 325 Mg Tablet) 650 mg PO Q6H PRN PRN Reason: Pain, Mild (Pain Scale 1-3) Last Admin: 11/28/21 16:11 Dose: 650 mg Documented by: CHICHI Atorvastatin Calcium (Atorvastatin Calcium 80 Mg Tablet) 80 mg PO BEDTIME [facility] Last Admin: 11/28/21 20:14 Dose: 80 mg Documented by: TORY Ceftriaxone Sodium 1 gm/ (Sodium Chloride) 50 mls @ 100 mls/hr IV Q24H [facility] Last Admin: 11/29/21 08:09 Dose: 100 mls/hr Documented by: KEN Azithromycin 500 mg/ Sodium (Chloride) 250 mls @ 125 mls/hr IV Q24H [facility] Last Infusion: 11/28/21 11:24 Dose: 0 mls/hr Documented by: CHICHI Levothyroxine Sodium (Levothyroxine Sodium 75 Mcg Tablet) 75 mcg PO DAILY@0600 [facility] Last Admin: 11/29/21 05:32 Dose: 75 mcg Documented by: TORY Magnesium Hydroxide (Milk Of Magnesia 30 Ml Oral.Susp) 30 ml PO DAILY PRN PRN Reason: Constipation Last Admin: 11/28/21 20:22 Dose: 30 ml Documented by: TORY Melatonin (Melatonin 3 Mg Tablet) 3 mg PO BEDTIME PRN PRN Reason: Insomnia Metolazone (Metolazone 2.5 Mg Tablet) 2.5 mg PO Q2D@0900 [facility] Last Admin: 11/29/21 08:08 Dose: 2.5 mg Documented by: KEN Morphine Sulfate (Morphine Sulfate 2 Mg/Ml Cartridge) 2 mg IVPUSH Q4H PRN; Protocol PRN Reason: Pain, Severe (Pain Scale 7-10) Last Admin: 11/29/21 08:10 Dose: 2 mg Documented by: KEN Morphine Sulfate (Morphine Sulfate 2 Mg/Ml Cartridge) 2 mg IVPUSH Q6H PRN; Protocol PRN Reason: Pain, Severe (Pain Scale 7-10) Non-Formulary Medication (Carboxymethylcellulose Sodium) 1 drop EYE-LEFT QID [facility] Last Admin: 11/28/21 20:18 Dose: Not Given Documented by: TORY Non-Admin Reason: Med Not Available Pharmacy Consult (Consult Rx Perform Med Rec) 1 each MISCELLANE ONCE PRN PRN Reason: Consult order Pharmacy Consult (Consult Rx Perform Med Rec) 1 each MISCELLANE ONCE PRN PRN Reason: Consult order Rivaroxaban (Rivaroxaban 20 Mg Tablet) 20 mg PO DAILY@1700 [facility] Last Admin: 11/28/21 16:11 Dose: 20 mg Documented by: CHICHI Sodium Chloride (0.9 % Sodium Chloride Flush 3 Ml Syringe) 3 ml IVFLUSH QSHIFT [facility] Last Admin: 11/29/21 08:09 Dose: 3 ml Documented by: KEN Torsemide (Torsemide 20 Mg Tablet) 40 mg PO DAILY [facility]; Protocol Last Admin: 11/29/21 08:08 Dose: 40 mg Documented by: KEN Trazodone HCl (Trazodone Hcl 25 Mg Halftab) 25 mg PO BEDTIME PRN PRN Reason: Insomnia Vitamin D (Cholecalciferol (Vitamin D3) 25 Mcg Tablet) 25 mcg PO DAILY [facility] Last Admin: 11/29/21 08:08 Dose: 25 mcg Documented by: KEN Labs CBC & Chem 7: 11/26/21 10:13 11/26/21 10:13 Microbiology Microbiology Results: Microbiology 11/26/21 13:08 Blood Culture - Final Blood - Venous Staphylococcus aureus 11/26/21 13:08 Blood Culture - Final Blood - Venous Staphylococcus aureus Assessment and Plan (1) Pneumonia: Status: Acute (2) Kidney calculi: Status: Acute (3) Back pain: Status: Acute Plan 75/ yo male with AFIB, recent admission for heart failure bradycardia presenting with back and left flank pain and has PNA, possible CHF 1/ Back pain--could be related to DJD or kidney stone, CT shows left kidney stones but no obstruction and possible finding suggetive of passed stone. he says pain is better today, he decline PT over the weeekedn, PT should reattempt today -has no urinary or stool incontinence -Uro--doesn't think current issue related to Uro -pain management -PT eval -Request MRI 2/PNA--AZithro and Ceftriaoxone, 3/Heart failure--no clinical finding of acute heart failure 4/AFIB--rate controlled, continue Xarelto..Amio and coreg have been on hold d/t recent sully, HR is well controlled. 5/?hyperlipidemia continue statins code: Full Inaptient need for Pneumonia needign IV Abx, work up for back pain causing diffuclty ambulating. PT will reassess tomorrow Will discuss with daughter Quality Stroke Does the patient have a stroke diagnosis?: No VTE Prior VTE?: No VTE Risk Level:: Medical - moderate - high VTE Device Contraindication: Treatment Not Indicated VTE Drug Contraindication: N/A - Med Ordered
[2021-11-29] MEDS: Azithromycin 500 MG in 0.9 % Sodium Chloride 250 ML 125 MG IV (09:47)
[2021-11-29 11:01] VITALS: BP 132/72; PULSE 72; RESP 18; TEMP 36; O2SAT 90
[2021-11-29 15:09] VITALS: BP 106/51; PULSE 76; RESP 18; TEMP 37; O2SAT 94
[2021-11-29] MEDS: Rivaroxaban 20 MG TABLET PO (16:01)
--- NOTE | 2021-11-29 16:07 | MHC.CM.PN ---
PER MD ROUNDS, PT NOT YET MEDICALLY CLEARED FOR DC, MRI TODAY. DC PLAN REMAINS RETURN TO [facility] WITH [facility] WITH OUT SERVICES [facility] PROVIDER RN/PT/OT IF INDICATED
[2021-11-29] MEDS: Atorvastatin Calcium 80 MG TABLET PO (19:28)
[2021-11-29] MEDS: traZODone HCL 25 MG HALFTAB PO (19:29)
[2021-11-29] MEDS: Milk of Magnesia 30 ML ORAL.SUSP PO (19:29)
[2021-11-29 19:37] VITALS: BP 110/69; PULSE 78; RESP 18; TEMP 37; O2SAT 97
[2021-11-29 23:22] VITALS: BP 115/63; PULSE 75; RESP 18; TEMP 37.4; O2SAT 95
[2021-11-30 03:27] VITALS: BP 118/70; PULSE 78; RESP 16; TEMP 37.3; O2SAT 93
[2021-11-30] MEDS: Morphine Sulfate 2 MG/ML CARTRIDGE IVPUSH ×2 (03:35→20:41)
[2021-11-30] MEDS: Levothyroxine Sodium 75 MCG TABLET PO (05:21)
[2021-11-30 06:51] VITALS: BP 117/61; PULSE 76; RESP 18; TEMP 36; O2SAT 91
[2021-11-30] MEDS: 0.9 % Sodium Chloride Flush 3 ML SYRINGE IVFLUSH ×2 (08:22→14:51)
[2021-11-30] MEDS: cefTRIAXone sodium 1 GM in 0.9 % Sodium Chloride 50 ML IV (08:22)
--- NOTE | 2021-11-30 09:38 | MHC.CM.PN ---
PATIENT IS ACTIVE WITH [facility] FOR P.T. AND O.T. SERVICES. REFERRAL PLACED FOR AGENCY TO FOLLOW
[2021-11-30] MEDS: Azithromycin 500 MG in 0.9 % Sodium Chloride 250 ML 125 MG IV (10:49)
[2021-11-30] MEDS: Torsemide 20 MG TABLET 40 MG PO (10:56)
[2021-11-30] MEDS: Cholecalciferol (Vitamin D3) 25 MCG TABLET PO (10:56)
[2021-11-30] MEDS: Milk of Magnesia 30 ML ORAL.SUSP PO (10:56)
--- NOTE | 2021-11-30 11:05 | P.PNIM_ITS ---
Subjective Subjective Date of Service: 11/30/21 Interval History: uti,backpain Review of Systems Still as back pain and walked few step with PT. Denies any chest pain shortness of breath or abdominal pain or fever chills or cough or phlegm. Physical Exam Vital Signs: Vital Signs: Last Vital Signs Temp 96.8 F 11/30/21 06:51 Pulse 76 11/30/21 06:51 Resp 18 11/30/21 06:51 BP 117/61 11/30/21 06:51 Pulse Ox 91 L 11/30/21 06:51 BMI result Body Mass Index 28.7 General: AO X 3, no acute distress Resp:? CTA bilateral CVS: S1,S2,RRR GI: +BS, NT, no distention Skin: No rash, pressure ulcers at the heels. ext: still has lower lumbar pain, moving his ext limited -due to pain. Neuro:? motor grossly intact, no numbness Psych: appropriate affect Objective Data Active Medications Acetaminophen (Acetaminophen 325 Mg Tablet) 650 mg PO Q6H PRN PRN Reason: Pain, Mild (Pain Scale 1-3) Last Admin: 11/28/21 16:11 Dose: 650 mg Documented by: CHICHI Atorvastatin Calcium (Atorvastatin Calcium 80 Mg Tablet) 80 mg PO BEDTIME [facility] Last Admin: 11/29/21 19:28 Dose: 80 mg Documented by: LD Cyclobenzaprine HCl (Cyclobenzaprine Hcl 5 Mg Tablet) 5 mg PO BID [facility] Ceftriaxone Sodium 1 gm/ (Sodium Chloride) 50 mls @ 100 mls/hr IV Q24H [facility] Last Infusion: 11/30/21 08:52 Dose: 0 mls/hr Documented by: KEN Azithromycin 500 mg/ Sodium (Chloride) 250 mls @ 125 mls/hr IV Q24H [facility] Last Infusion: 11/29/21 11:47 Dose: 0 mls/hr Documented by: KEN Levothyroxine Sodium (Levothyroxine Sodium 75 Mcg Tablet) 75 mcg PO DAILY@0600 [facility] Last Admin: 11/30/21 05:21 Dose: 75 mcg Documented by: LD Lidocaine (Lidocaine 4 % Patch Adh..Patch) 1 patch TRANSDERMA DAILY [facility]; Protocol Magnesium Hydroxide (Milk Of Magnesia 30 Ml Oral.Susp) 30 ml PO DAILY PRN PRN Reason: Constipation Last Admin: 11/29/21 19:29 Dose: 30 ml Documented by: LD Melatonin (Melatonin 3 Mg Tablet) 3 mg PO BEDTIME PRN PRN Reason: Insomnia Metolazone (Metolazone 2.5 Mg Tablet) 2.5 mg PO Q2D@0900 [facility] Last Admin: 11/29/21 08:08 Dose: 2.5 mg Documented by: KEN Morphine Sulfate (Morphine Sulfate 2 Mg/Ml Cartridge) 2 mg IVPUSH Q4H PRN; Protocol PRN Reason: Pain, Severe (Pain Scale 7-10) Last Admin: 11/29/21 19:28 Dose: 2 mg Documented by: LD Morphine Sulfate (Morphine Sulfate 2 Mg/Ml Cartridge) 2 mg IVPUSH Q6H PRN; Protocol PRN Reason: Pain, Severe (Pain Scale 7-10) Last Admin: 11/30/21 03:35 Dose: 2 mg Documented by: LD Non-Formulary Medication (Carboxymethylcellulose Sodium) 1 drop EYE-LEFT QID [facility] Last Admin: 11/29/21 22:28 Dose: Not Given Documented by: LD Non-Admin Reason: Med Not Available Pharmacy Consult (Consult Rx Perform Med Rec) 1 each MISCELLANE ONCE PRN PRN Reason: Consult order Pharmacy Consult (Consult Rx Perform Med Rec) 1 each MISCELLANE ONCE PRN PRN Reason: Consult order Rivaroxaban (Rivaroxaban 20 Mg Tablet) 20 mg PO DAILY@1700 [facility] Last Admin: 11/29/21 16:01 Dose: 20 mg Documented by: KEN Sodium Chloride (0.9 % Sodium Chloride Flush 3 Ml Syringe) 3 ml IVFLUSH QSHIFT [facility] Last Admin: 11/30/21 08:22 Dose: 3 ml Documented by: KEN Torsemide (Torsemide 20 Mg Tablet) 40 mg PO DAILY [facility]; Protocol Last Admin: 11/29/21 08:08 Dose: 40 mg Documented by: KEN Trazodone HCl (Trazodone Hcl 25 Mg Halftab) 25 mg PO BEDTIME PRN PRN Reason: Insomnia Last Admin: 11/29/21 19:29 Dose: 25 mg Documented by: LD Vitamin D (Cholecalciferol (Vitamin D3) 25 Mcg Tablet) 25 mcg PO DAILY [facility] Last Admin: 11/29/21 08:08 Dose: 25 mcg Documented by: KEN Labs CBC & Chem 7: 11/26/21 10:13 11/30/21 11:24 Microbiology Microbiology Results: Microbiology 11/26/21 13:08 Blood Culture - Final Blood - Venous Staphylococcus aureus 11/26/21 13:08 Blood Culture - Final Blood - Venous Staphylococcus aureus Assessment and Plan (1) Back pain: Status: Acute (2) Pneumonia: Status: Acute Plan 75/ yo male with AFIB, recent admission for heart failure bradycardia? presenting with back and left flank pain and has PNA, possible CHF 1/ Back pain--could be related to DJD or kidney stone, CT shows left kidney stones but no obstruction and possible finding suggetive of passed stone.? ?he says pain is better today, he decline PT over the weeekedn, PT should reattempt today -has no urinary or stool incontinence,Uro--doesn't think current issue related to Uro MRI back shows severe spinal stenosis Seen by neuro: Recommended epidural steroid injection, given dexamethasone, added Flexeril, pain management with morphine Bowel regimen-did not had bowel movement for few days. 2/PNA--AZithro and Ceftriaoxoneday2. 3/Heart failure--no clinical finding of acute heart failure 4/AFIB--rate controlled, continue Xarelto..Amio and coreg have been on hold d/t recent sully, HR is well controlled. 5/?hyperlipidemia continue statins code: Full Inaptient need for Pneumonia needign IV Abx, work up for back pain causing diffuclty ambulating. Need epidural injection which will be done tomorrow Pt recomended rehav Will discuss with daughter Quality Stroke Does the patient have a stroke diagnosis?: No VTE Prior VTE?: No VTE Risk Level:: Medical - moderate - high VTE Device Contraindication: Treatment Not Indicated VTE Drug Contraindication: N/A - Med Ordered
[2021-11-30 11:09] VITALS: BP 107/63; PULSE 70; RESP 19; TEMP 36.4; O2SAT 95
[2021-11-30 11:45] LABS: Potassium 2.7 mmol/L (3.3-5.1)
[2021-11-30] MEDS: Cyclobenzaprine HCl 5 MG TABLET PO ×2 (12:20→20:40)
[2021-11-30] MEDS: Docusate Sodium 100 MG CAPSULE PO ×2 (12:21→20:41)
[2021-11-30] MEDS: Lidocaine 4 % Patch ADH..PATCH 1 PATCH TRANSDERMA (12:22)
[2021-11-30] MEDS: polyethylene glycoL 3350 17 GM POWD.PACK PO ×2 (12:22→20:41)
[2021-11-30] MEDS: dexAMETHasone sod phosphate 10 MG/ML VIAL IVPUSH (12:31)
--- NOTE | 2021-11-30 13:19 | P.CNNE_ITS ---
History of Present Illness Data of Consult Service Date: 11/30/21 Primary Care Provider: Naveen Mcconnell [facility] Reason for consult: severe back pain radiating into the thighs 75-year-old man with history of atrial fibrillation, coronary artery disease, congestive heart failure with reduced EF, obstructive sleep apnea on CPAP, restless leg syndrome, history of kidney stones who presents with acute onset of severe disabling low back? and left flank pain that is excruciating and limiting ambulation and activity,with no triggers or injury. He had a similar event about 5 or 6 years ago and was given a injection in his spine by a chiropractor. He then did fine after that until now. He has no neurological changes and no no hematuria, or dysuria. He also c/o of cough and subjective sob. MRI of the lumbar spine shows multilevel degenerative disc disease with severe spinal sterile stenosis at L2-3 and foraminal encroachment impinging the L4 roots bilaterally and mild to moderate foraminal encroachment at other levels. There is also grade 1 spondylolisthesis. Review of Systems Review of Systems: no cough, no sob, +back pain.-- Yes all other systems are reviewed and are negative Constitutional: Constitutional: Reports no additional constitutional complaints Eyes: Eyes: Reports no additional eye complaints ENT: Denies dizziness Cardiovascular: Cardiovascular: Reports no additional cardiovascular complaints Respiratory: Respiratory: Reports as per HPI Gastrointestinal: Gastrointestinal: Reports no additional gastrointestinal complaints Musculoskeletal: Musculoskeletal: Reports no additional musculoskeletal complaints Integumentary/Breasts: Skin/Breast: Denies rash Neurologic: Reports system reviewed and no additional complaints, except as documented, Denies dizziness and Denies Sensory deficit (Neuro) Psychiatric: Psychiatric: Denies anxiety [facility] Past Medical History Medical History Afib Atherosclerotic cardiovascular disease CAD (coronary artery disease) Cataract CHF (congestive heart failure) Chronic systolic (congestive) heart failure Ischemic cardiomyopathy Kidney stone WILLIE (obstructive sleep apnea) PAF (paroxysmal atrial fibrillation) Restless legs syndrome Sinus bradycardia Sleep apnea Typical atrial flutter Family History Family History Father No problems noted. Mother No problems noted. Surgical History Surgical History Hx of CABG Social History Social History Household Members: None Housing: Other Housing Other:: Independent living Do you presently have visiting nurse or other home services: Yes Alcohol intake: never Patient Tobacco Use Status: Former Tobacco user Use of substances other than those prescribed or required for medical reasons: No Currently Displaying Signs/Symptoms of Drug Intoxication Withdrawal: No Have you been hit, kicked, punched, or otherwise hurt by someone within the past year? If so, by whom?: No Do you feel safe in your current relationship?: No Current Relationship Is there a partner from a previous relationship who is making you feel unsafe now?: No Are you made to feel afraid or neglected: No Advance Directives: Yes Advance Directives on File: Yes Advance Directives Date on File: 10/21/21 Do you have thoughts of harming others: None Do you have a plan to hurt others: No Plan Recently lost weight without trying: No Eating poorly because of decreased appetite: No Nutrition Risks: No Nutritional Risk service: Yes Current occupational status: retired Meds Allergies Allergy/AdvReac Type Severity Reaction Status Date / Time lisinopril [LISINOPRIL] Allergy Severe SWELLING/ED Verified 11/15/21 09:14 PAO Active Medications: Current Medications Acetaminophen (Acetaminophen 325 Mg Tablet) 650 mg PO Q6H PRN PRN Reason: Pain, Mild (Pain Scale 1-3) Last Admin: 11/28/21 16:11 Dose: 650 mg Documented by: Atorvastatin Calcium (Atorvastatin Calcium 80 Mg Tablet) 80 mg PO BEDTIME [facility] Last Admin: 11/29/21 19:28 Dose: 80 mg Documented by: Cyclobenzaprine HCl (Cyclobenzaprine Hcl 5 Mg Tablet) 5 mg PO BID [facility] Last Admin: 11/30/21 12:20 Dose: 5 mg Documented by: Docusate Sodium (Docusate Sodium 100 Mg Capsule) 100 mg PO BID [facility] Last Admin: 11/30/21 12:21 Dose: 100 mg Documented by: Ceftriaxone Sodium 1 gm/ (Sodium Chloride) 50 mls @ 100 mls/hr IV Q24H [facility] Last Infusion: 11/30/21 08:52 Dose: Infused Documented by: Azithromycin 500 mg/ Sodium (Chloride) 250 mls @ 125 mls/hr IV Q24H [facility] Last Infusion: 11/30/21 13:06 Dose: Infused Documented by: Levothyroxine Sodium (Levothyroxine Sodium 75 Mcg Tablet) 75 mcg PO DAILY@0600 [facility] Last Admin: 11/30/21 05:21 Dose: 75 mcg Documented by: Lidocaine (Lidocaine 4 % Patch Adh..Patch) 1 patch TRANSDERMA DAILY [facility]; Protocol Last Admin: 11/30/21 12:22 Dose: 1 patch Documented by: Magnesium Hydroxide (Milk Of Magnesia 30 Ml Oral.Susp) 30 ml PO DAILY PRN PRN Reason: Constipation Last Admin: 11/30/21 10:56 Dose: 30 ml Documented by: Melatonin (Melatonin 3 Mg Tablet) 3 mg PO BEDTIME PRN PRN Reason: Insomnia Metolazone (Metolazone 2.5 Mg Tablet) 2.5 mg PO Q2D@0900 [facility] Last Admin: 11/29/21 08:08 Dose: 2.5 mg Documented by: Morphine Sulfate (Morphine Sulfate 2 Mg/Ml Cartridge) 2 mg IVPUSH Q4H PRN; Protocol PRN Reason: Pain, Severe (Pain Scale 7-10) Last Admin: 11/29/21 19:28 Dose: 2 mg Documented by: Morphine Sulfate (Morphine Sulfate 2 Mg/Ml Cartridge) 2 mg IVPUSH Q6H PRN; Protocol PRN Reason: Pain, Severe (Pain Scale 7-10) Last Admin: 11/30/21 03:35 Dose: 2 mg Documented by: Non-Formulary Medication (Carboxymethylcellulose Sodium) 1 drop EYE-LEFT QID [facility] Last Admin: 11/30/21 13:06 Dose: Not Given Documented by: Pharmacy Consult (Consult Rx Perform Med Rec) 1 each MISCELLANE ONCE PRN PRN Reason: Consult order Pharmacy Consult (Consult Rx Perform Med Rec) 1 each MISCELLANE ONCE PRN PRN Reason: Consult order Polyethylene Glycol (Polyethylene Glycol 3350 17 Gm Powd.Pack) 17 gm PO BID [facility] Last Admin: 11/30/21 12:22 Dose: 17 gm Documented by: Rivaroxaban (Rivaroxaban 20 Mg Tablet) 20 mg PO DAILY@1700 [facility] Last Admin: 11/29/21 16:01 Dose: 20 mg Documented by: Sodium Chloride (0.9 % Sodium Chloride Flush 3 Ml Syringe) 3 ml IVFLUSH QSHIFT [facility] Last Admin: 11/30/21 08:22 Dose: 3 ml Documented by: Torsemide (Torsemide 20 Mg Tablet) 40 mg PO DAILY [facility]; Protocol Last Admin: 11/30/21 10:56 Dose: 40 mg Documented by: Trazodone HCl (Trazodone Hcl 25 Mg Halftab) 25 mg PO BEDTIME PRN PRN Reason: Insomnia Last Admin: 11/29/21 19:29 Dose: 25 mg Documented by: Vitamin D (Cholecalciferol (Vitamin D3) 25 Mcg Tablet) 25 mcg PO DAILY [facility] Last Admin: 11/30/21 10:56 Dose: 25 mcg Documented by: Home Medications Medication Instructions Recorded Confirmed Last Taken Type melatonin 10 mg tablet 10 mg PO BEDTIME PRN 05/30/20 11/26/21 11/17/21 History carboxymethylcellulose sodium 0.5 1 drp OPHTHALMIC-LEFT QID 10/20/21 11/26/21 11/18/21 History % eye drops cholecalciferol (vitamin D3) 25 25 mcg PO DAILY 10/20/21 11/26/21 11/18/21 History mcg (1,000 unit) tablet ferrous sulfate 324 mg (65 mg 324 mg PO BID 10/20/21 11/26/21 11/18/21 History iron) tablet,delayed release levothyroxine 75 mcg tablet 75 mcg PO DAILY 10/20/21 11/26/21 11/18/21 History (Levoxyl) multivitamin 1 tab PO DAILY 10/20/21 11/26/21 11/18/21 History trazodone 50 mg tablet 25 mg PO BEDTIME PRN 10/20/21 11/26/21 11/17/21 History atorvastatin 80 mg tablet 80 mg PO BEDTIME 11/26/21 11/26/21 Unknown History doxycycline hyclate 100 mg tablet 100 mg PO BID 11/26/21 11/26/21 Unknown History Physical Exam Vital Signs: Vital Signs: Last Vital Signs Temp 97.5 F 11/30/21 11:09 Pulse 70 11/30/21 11:09 Resp 19 11/30/21 11:09 BP 107/63 11/30/21 11:09 Pulse Ox 95 11/30/21 11:09 BMI result Body Mass Index 28.7 Const: Other: General: AO X 3, no acute distress Resp: CTA bilateral CVS: S1,S2,RRR GI: +BS, NT, no distention Skin: No rash, pressure ulcers at the heels Neuro: motor grossly intact, no numbness Psych: appropriate affect Nutritional Appearance: average body habitus Orientation/consciousness: oriented to person and patient oriented x3 Limitations: no limitations HEENT: Head: Yes normal to inspection Ears: external ears normal General nose exam: Normal external nose present Mouth: Normal oral and palatal mucosa present and oropharynx normal Throat: Yes posterior oropharynx normal Eyes: General: appearance normal, both eyes and all related structures Neck: Other: supple Neck: Yes normal visual inspection Chest: Chest palpation & inspection: normal inspection of the chest Resp: Other: decreased BS bilaterally Auscultation: clear to auscultation bilaterally Cardio: Jugular venous distension: no JVD Rate: regular rate Rhythm: regular rhythm Heart sounds: S1 normal heart sound present and S2 normal heart sound present GI: Inspection: Yes normal to inspection Palpation (GI): Soft to palpation, nontender and No hepatosplenomegaly present Auscultation: normal bowel sounds Back/Spine/Pelvis: Other: left SI joint pain and left sciatic notch pain Skin: General skin exam: no rashes or lesions noted Neuro: Other: Limited exam because of pain. No focal weakness in his feet and leg muscles. Reflexes are hypoactive 1+ at the knees and absent at the ankles. Gait could not be tested. Straight leg raising positive at 60? on the left. General: oriented to person and patient oriented x3 Cranial nerves: Yes CN's II-XII intact bilaterally Motor exam (neuro): 5/5 motor strength present throughout Sensory Exam: No Sensory deficit (Neuro) Extrem: Other: chronic bilateral edema Psych: Appearance: grossly normal Results Labs CBC & Chem 7: 11/26/21 10:13 11/30/21 11:24 Labs: BMP 11/30/21 11:24 Potassium 2.7 L Microbiology Microbiology Results: Microbiology 11/26/21 13:08 Blood - Venous Blood Culture - Final Staphylococcus aureus 11/26/21 13:08 Blood - Venous Blood Culture - Final Staphylococcus aureus Assessment and Plan (1) Back pain: Status: Acute multilevel degenerative disc disease with spinal stenosis at L2-3 level and multiple level of foramina encroachment. He is not a good surgical candidate and he should be treated with the epidural cortisone injection through the pain clinic. If this cannot be done while he is in the hospital, then he should be given a course of prednisone 60 mg a day for 3 days, 40 mg a day for 3 days, and 20 mg a day for 3 days, to see if it will give him some pain relief. In the meantime, judicious use of narcotics is advisable (2) Pneumonia: Status: Acute (3) Kidney calculi: Status: Acute Plan 75/ yo male with AFIB, recent admission for heart failure bradycardia presenting with back and left flank pain and has PNA, possible CHF 1/ Back pain--could be related to DJD or kidney stone, CT shows left kidney stones but no obstruction and possible finding suggetive of passed stone. he says pain is better today, he decline PT over the weeekedn, PT should reattempt today -has no urinary or stool incontinence -Uro--doesn't think current issue related to Uro -pain management -PT eval -Request MRI 2/PNA--AZithro and Ceftriaoxone, 3/Heart failure--no clinical finding of acute heart failure 4/AFIB--rate controlled, continue Xarelto..Amio and coreg have been on hold d/t recent sully, HR is well controlled. 5/?hyperlipidemia continue statins code: Full Inaptient need for Pneumonia needign IV Abx, work up for back pain causing diffuclty ambulating. PT will reassess tomorrow Will discuss with daughter Procedures Date of Service Date of Service: 11/30/21
[2021-11-30 15:01] VITALS: BP 127/71; PULSE 86; RESP 18; TEMP 36.6; O2SAT 96
[2021-11-30] MEDS: Potassium Chloride Packet 20 MEQ PACKET 40 MEQ PO (15:31)
[2021-11-30] MEDS: Potassium Chloride/H20 10 MEQ/100 ML PIGGYBACK 100 MEQ IV ×2 (15:33→16:50)
[2021-11-30] MEDS: Potassium Chloride Packet 20 MEQ PACKET PO (18:30)
[2021-11-30 19:25] VITALS: BP 111/67; PULSE 70; RESP 18; TEMP 36.3; O2SAT 96
[2021-11-30] MEDS: Atorvastatin Calcium 80 MG TABLET PO (20:41)
[2021-11-30] MEDS: traZODone HCL 25 MG HALFTAB PO (20:41)
[2021-11-30 23:15] VITALS: BP 115/79; PULSE 76; RESP 17; TEMP 36.2; O2SAT 95
[2021-12-01] MEDS: 0.9 % Sodium Chloride Flush 3 ML SYRINGE IVFLUSH ×3 (02:04→17:48)
[2021-12-01 03:18] VITALS: BP 102/68; PULSE 70; RESP 17; TEMP 36.5; O2SAT 94
[2021-12-01] MEDS: Omeprazole 20 MG CAPSULE.DR PO ×2 (05:44→17:48)
[2021-12-01] MEDS: Levothyroxine Sodium 75 MCG TABLET PO (05:44)
[2021-12-01] MEDS: Morphine Sulfate 2 MG/ML CARTRIDGE IVPUSH (05:50)
[2021-12-01 06:31] LABS: Anion Gap 15 (12-20); Blood Urea Nitrogen 32 mg/dL (9-16); Calcium 9.1 mg/dL (8.4-10.2); Carbon Dioxide 33 mmol/L (22-29); Chloride 90 mmol/L (96-108); Creatinine Clr Calc Pharmacy 55.8; Estimated Glomerular Filt Rate > 60; Glucose Random 189 mg/dL (60-115); Magnesium 2.6 mg/dL (1.6-2.6); Potassium 3.4 mmol/L (3.3-5.1); Sodium 135 mmol/L (135-145)
[2021-12-01 07:49] VITALS: BP 108/75; PULSE 70; RESP 18; TEMP 35.6; O2SAT 96
--- NOTE | 2021-12-01 08:08 | HO.PM.IMPN ---
Subjective Subjective Date of Service: 12/01/21 Interval History: back pain , pneumonia Review of Systems Shortness of breath seems to be improved, and back pain also improving patient is walking more. Physical Exam Vital Signs: Vital Signs: Last Vital Signs Temp 96.1 F L 12/01/21 07:49 Pulse 70 12/01/21 07:49 Resp 18 12/01/21 07:49 BP 108/75 12/01/21 07:49 Pulse Ox 96 12/01/21 07:49 BMI result Body Mass Index 28.7 General: AO X 3, no acute distress Resp:? CTA bilateral CVS: S1,S2,RRR GI: +BS, NT, no distention Skin: No rash, pressure ulcers at the heels. ext: still has lower lumbar pain, moving legs better. Neuro:? motor grossly intact, no numbness Psych: appropriate affect Objective Data Active Medications Acetaminophen (Acetaminophen 325 Mg Tablet) 650 mg PO Q6H PRN PRN Reason: Pain, Mild (Pain Scale 1-3) Last Admin: 11/28/21 16:11 Dose: 650 mg Documented by: CHICHI Atorvastatin Calcium (Atorvastatin Calcium 80 Mg Tablet) 80 mg PO BEDTIME REPLACED BY [facility] Last Admin: 11/30/21 20:41 Dose: 80 mg Documented by: SAROJ Cyclobenzaprine HCl (Cyclobenzaprine Hcl 5 Mg Tablet) 5 mg PO BID REPLACED BY [facility] Last Admin: 11/30/21 20:40 Dose: 5 mg Documented by: SAROJ Docusate Sodium (Docusate Sodium 100 Mg Capsule) 100 mg PO BID REPLACED BY [facility] Last Admin: 11/30/21 20:41 Dose: 100 mg Documented by: SAROJ Ceftriaxone Sodium 1 gm/ (Sodium Chloride) 50 mls @ 100 mls/hr IV Q24H REPLACED BY [facility] Last Infusion: 11/30/21 08:52 Dose: 0 mls/hr Documented by: KEN Azithromycin 500 mg/ Sodium (Chloride) 250 mls @ 125 mls/hr IV Q24H REPLACED BY [facility] Last Infusion: 11/30/21 13:06 Dose: 0 mls/hr Documented by: KEN Levothyroxine Sodium (Levothyroxine Sodium 75 Mcg Tablet) 75 mcg PO DAILY@0600 REPLACED BY [facility] Last Admin: 12/01/21 05:44 Dose: 75 mcg Documented by: SAROJ Lidocaine (Lidocaine 4 % Patch Adh..Patch) 1 patch TRANSDERMA DAILY REPLACED BY [facility]; Protocol Last Admin: 11/30/21 12:22 Dose: 1 patch Documented by: TRENTON Comments: first dose, teaching done Magnesium Hydroxide (Milk Of Magnesia 30 Ml Oral.Susp) 30 ml PO DAILY PRN PRN Reason: Constipation Last Admin: 11/30/21 10:56 Dose: 30 ml Documented by: KEN Melatonin (Melatonin 3 Mg Tablet) 3 mg PO BEDTIME PRN PRN Reason: Insomnia Metolazone (Metolazone 2.5 Mg Tablet) 2.5 mg PO Q2D@0900 REPLACED BY [facility] Last Admin: 11/29/21 08:08 Dose: 2.5 mg Documented by: KEN Morphine Sulfate (Morphine Sulfate 2 Mg/Ml Cartridge) 2 mg IVPUSH Q4H PRN; Protocol PRN Reason: Pain, Severe (Pain Scale 7-10) Last Admin: 12/01/21 05:50 Dose: 2 mg Documented by: SAROJ Morphine Sulfate (Morphine Sulfate 2 Mg/Ml Cartridge) 2 mg IVPUSH Q6H PRN; Protocol PRN Reason: Pain, Severe (Pain Scale 7-10) Last Admin: 11/30/21 03:35 Dose: 2 mg Documented by: LD Non-Formulary Medication (Carboxymethylcellulose Sodium) 1 drop EYE-LEFT QID REPLACED BY [facility] Last Admin: 11/30/21 20:41 Dose: Not Given Documented by: SAROJ Non-Admin Reason: Med Not Available Omeprazole (Omeprazole 20 Mg Esperanza.) 20 mg PO BID@0630,1630 REPLACED BY [facility] Last Admin: 12/01/21 05:44 Dose: 20 mg Documented by: SAROJ Pharmacy Consult (Consult Rx Perform Med Rec) 1 each MISCELLANE ONCE PRN PRN Reason: Consult order Pharmacy Consult (Consult Rx Perform Med Rec) 1 each MISCELLANE ONCE PRN PRN Reason: Consult order Polyethylene Glycol (Polyethylene Glycol 3350 17 Gm Powd.Pack) 17 gm PO BID REPLACED BY [facility] Last Admin: 11/30/21 20:41 Dose: 17 gm Documented by: SAROJ Prednisone (Prednisone 20 Mg Tablet) 60 mg PO DAILY REPLACED BY [facility] Rivaroxaban (Rivaroxaban 20 Mg Tablet) 20 mg PO DAILY@1700 REPLACED BY [facility] Last Admin: 11/29/21 16:01 Dose: 20 mg Documented by: KEN Sodium Chloride (0.9 % Sodium Chloride Flush 3 Ml Syringe) 3 ml IVFLUSH QSHIFT REPLACED BY [facility] Last Admin: 12/01/21 02:04 Dose: 3 ml Documented by: SAROJ Torsemide (Torsemide 20 Mg Tablet) 40 mg PO DAILY REPLACED BY [facility]; Protocol Last Admin: 11/30/21 10:56 Dose: 40 mg Documented by: KEN Trazodone HCl (Trazodone Hcl 25 Mg Halftab) 25 mg PO BEDTIME PRN PRN Reason: Insomnia Last Admin: 11/30/21 20:41 Dose: 25 mg Documented by: SAROJ Vitamin D (Cholecalciferol (Vitamin D3) 25 Mcg Tablet) 25 mcg PO DAILY REPLACED BY [facility] Last Admin: 11/30/21 10:56 Dose: 25 mcg Documented by: KEN Labs CBC & Chem 7: 11/26/21 10:13 12/01/21 05:40 Labs: Laboratory Results - last 24 hr 12/01/21 05:40 Anion Gap 15 Estim Creat Clear Calc 55.8 Estimated GFR > 60 Random Glucose 189 H D Calcium 9.1 Magnesium 2.6 Assessment and Plan Plan 75/ yo male with AFIB, recent admission for heart failure bradycardia? presenting with back and left flank pain and has PNA, possible CHF 1/ Back pain--could be related to DJD or kidney stone, CT shows left kidney stones but no obstruction and possible finding suggetive of passed stone.? ?he says pain is better today, he decline PT over the weeekedn, PT should reattempt today -has no urinary or stool incontinence,Uro--doesn't think current issue related to Uro MRI back shows severe spinal stenosis Seen by neuro:? Recommended epidural steroid injection, given dexamethasone, added Flexeril, pain management with morphine Bowel regimen-did not had bowel movement for few days. 2/PNA--AZithro and Ceftriaoxoneday3. 3/Heart failure--no clinical finding of acute heart failure 4/AFIB--rate controlled, continue Xarelto..Amio and coreg have been on hold d/t recent sully, HR is well controlled. 5/?hyperlipidemia continue statins code: Full Inpatient need: Awaiting for rehab placement Will discuss with daughter and patient-currently they patient is improving Quality Stroke Does the patient have a stroke diagnosis?: No VTE Prior VTE?: No VTE Risk Level:: Medical - moderate - high VTE Device Contraindication: Treatment Not Indicated VTE Drug Contraindication: N/A - Med Ordered
[2021-12-01] MEDS: cefTRIAXone sodium 1 GM in 0.9 % Sodium Chloride 50 ML IV (08:58)
[2021-12-01] MEDS: Cholecalciferol (Vitamin D3) 25 MCG TABLET PO (09:15)
[2021-12-01] MEDS: polyethylene glycoL 3350 17 GM POWD.PACK PO (09:15)
[2021-12-01] MEDS: Lidocaine 4 % Patch ADH..PATCH 1 PATCH TRANSDERMA (09:15)
[2021-12-01] MEDS: Docusate Sodium 100 MG CAPSULE PO (09:15)
[2021-12-01] MEDS: Torsemide 20 MG TABLET 40 MG PO (09:16)
[2021-12-01] MEDS: metOLazone 2.5 MG TABLET PO (09:16)
[2021-12-01] MEDS: predniSONE 20 MG TABLET 60 MG PO (09:16)
[2021-12-01] MEDS: Cyclobenzaprine HCl 5 MG TABLET PO (09:17)
[2021-12-01] MEDS: Azithromycin 500 MG in 0.9 % Sodium Chloride 250 ML 125 MG IV (09:58)
[2021-12-01 12:00] VITALS: BP 101/67; PULSE 76; RESP 20; TEMP 36.2; O2SAT 98
--- NOTE | 2021-12-01 13:16 | MHC.CM.PN ---
PATIENT REQUESTS SNF REFERRAL TO THE [facility]. DAUGHTER (IN ROOM) IN AGREEMENT) CASE MANAGEMENT FOLLOWING.
--- NOTE | 2021-12-01 14:34 | MHC.CM.PN ---
NO BED AT [facility]; HOWEVER, [facility] IS OFFERING. CURRENTLY AWAITING COVID SWAB ANTICIP[place]ER FOR 1700 [place] [facility] [place] DAUGHTER (IN ROOM) AND PATIENT AWARE. IMM 4 IN CHART
[2021-12-01 14:53] VITALS: BP 120/71; PULSE 74; RESP 18; TEMP 37; O2SAT 97
[2021-12-01 15:01] LABS: COVID-19 Test Negative (Negative); IDNOW Serial# 16C4AD1C
--- NOTE | 2021-12-01 16:02 | PM.DS ---
DS: Providers Provider Date of Service: 12/01/21 Date of admission: 11/26/21 14:46 Primary care physician: Naveen Mcconnell Consults: 11/27/21 09:08 Consult to Urology Routine Consulting Provider: Rusty Perdomo Reason for consultation: kidney stone Has provider been notified: No 11/30/21 08:10 Consult to Neurology Routine Consulting Provider: [facility] Reason for consultation: severe spinal stenosis/nerve root compression Has provider been notified: No DS: Diagnosis Discharge Diagnosis (1) Back pain: Status: Acute (2) Pneumonia: Status: Acute DS: Summary Hospital Course Hospital Course: 75-year-old gentleman with past medical history significant for atrial fibrillation, coronary artery disease, congestive heart failure with reduced EF, obstructive sleep apnea on CPAP, restless leg syndrome, history of kidney stones.? He was recently? dischareged from the hospital after treatment for heart failure related to bradycardia and at that time meds were adjusted. He is presents today with low back? and left flank pain that is excruciating and limiting ambulation and activity, he has no neurological changes and no no hematuria, or dysuria. He also c/o of cough and subjective sob. His oxygen saturation is normal normal. He has no fever. CXR shows?Patchy opacity right lung base new since previous study. WBC is 12. Lumbar spine xray shows Grade 1 anterolisthesis L4 over L5. There are degenerative disc changes at the L2-L3. Hospital course: Patient was admitted due to back pain, possible pneumonia: Started on IV antibiotics seems to be improving, switched to p.o. antibiotics for that. Back pain: Patient seems to have history of spinal stenosis, MRI was done and seen by neuro: Patient back pain related to spinal stenosis, patient wants to defer any surgery, currently improving with pain management, muscle relaxers and steroids-patient wants to defer IV epidural steroid injection for now and consider in later date if needed to be since his back pain and improving and ambulation is also improving. Seen by PT recommended rehab. Constipation: Patient was placed on laxative and given 1 enema and had a large bowel movement after that, monitor for constipation since patient is on pain medication oxycodone. Further management outpatient as per PCP. Above management discussed with the patient and his daughter in detail length both understand and in agreement with the above plan, time spent 50 minutes and 50% time spent on counseling. Significant findings: As above. Procedures performed: None. Treatment and response: As above. Complications: None. Time Spent with Patient Time attestation: Total time spent providing and/or coordinating discharge services: Discharge coordination time: Greater than 30 minutes Quality: Safe Use of Opioids Does Pt have an Active Cancer Diagnosis on the Problem List?: No Quality: Stroke Does the patient have a stroke diagnosis?: No Physical Exam Vital Signs: Vital Signs: Last Vital Signs Temp 98.6 F 12/01/21 14:53 Pulse 74 12/01/21 14:53 Resp 18 12/01/21 14:53 BP 120/71 12/01/21 14:53 Pulse Ox 97 12/01/21 14:53 BMI result Body Mass Index 28.7 General: AO X 3, no acute distress Resp:? CTA bilateral CVS: S1,S2,RRR GI: +BS, NT, no distention Skin: No rash, pressure ulcers at the heels. ext: still has lower lumbar pain, moving his ext limited -due to pain. Neuro:? motor grossly intact, no numbness Psych: appropriate affect DS: Data Data Completed and Pending Labs on day of discharge: Laboratory Results - last 24 hr 12/01/21 12/01/21 05:40 14:40 Sodium 135 Potassium 3.4 D Chloride 90 L Carbon Dioxide 33 H Anion Gap 15 BUN 32 H Creatinine 1.14 Estim Creat Clear Calc 55.8 Estimated GFR > 60 Random Glucose 189 H D Calcium 9.1 Magnesium 2.6 COVID-19 ([facility]AL[facility]) Negative COVID-19 Clin Com See Note Additional Comments Additional comments: MR/MR lumbar spine wo con IMPRESSION: There is multilevel degenerative spondylosis of the lumbar spine with grade 1 anterolisthesis of L4 on L5 related to advanced facet degenerative changes at this level. There is severe canal stenosis at L2-L3, moderate canal stenosis at L3-L4, and mild canal stenosis at L1-L2 and L4-L5. There are varying degrees of mass effect on the traversing and foraminal segments of the nerve roots as described above. For instance at L4-L5 there is severe compression of both L4 foraminal nerve roots. XR/XR chest 2V IMPRESSION: Cardiomegaly with CHF. ? Patchy opacity right lung base new since previous study. Elevated right hemidiaphragm is unchanged. 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 ? Grade 1 anterolisthesis L4 over L5. There are degenerative disc changes at the L2-L3. ? Mild spondylosis lower dorsal and upper lumbar spine Discharge Plan Discharge Patient Disposition: Xfer [facility] Discharge Diagnosis: Back pain, pneumonia. Referrals: Lucía Figueroa [facility] [Outside] - 1 Week ([phone]) Naveen Mcconnell [Primary Care Provider] - 1 Week Discharge Medications: New acetaminophen 325 mg Tablet 650 mg PO Q6H PRN (Reason: Pain, Mild (Pain Scale 1-3)) Qty: 20 0RF polyethylene glycol 3350 17 gram Powder In Packet 17 g PO BID Qty: 60 0RF magnesium hydroxide [Milk of Magnesia] 400 mg/5 mL Suspension 30 ml PO DAILY PRN (Reason: Constipation) Qty: 355 0RF docusate sodium 100 mg Capsule 100 mg PO BID Qty: 60 0RF omeprazole 20 mg Capsule,Delayed Release(Dr/Ec) 20 mg PO BID@0630,1630 Qty: 60 0RF oxycodone 5 mg Tablet 10 mg PO Q6H PRN (Reason: Pain, Mild (Pain Scale 1-3)) Qty: 20 0RF cyclobenzaprine 5 mg Tablet 5 mg PO BID Qty: 20 0RF cefuroxime axetil 500 mg tablet 500 mg PO BID Qty: 10 0RF azithromycin 500 mg tablet 500 mg PO DAILY 3 Days Qty: 3 0RF prednisone 10 mg tablet See Taper mg PO DAILY Qty: 30 0RF Taper: Prednisone 60 mg daily for 2 Days and 0 Hour 40 mg daily for 3 Days and 0 Hour 20 mg daily for 3 Days and 0 Hour 10 mg daily for 3 Days and 0 Hour Continued metolazone 2.5 mg tablet 2.5 mg PO Q OTHER DAY Qty: 30 5RF Hold Instructions: Resume on 11/08/21. wait until seen outpatient with cardiology and nephrology Xarelto 20 mg tablet 20 mg PO DAILY Qty: 90 3RF melatonin 10 mg Tablet 10 mg PO BEDTIME PRN (Reason: Insomnia) 0RF multivitamin Tablet 1 tab PO DAILY 0RF trazodone 50 mg Tablet 25 mg PO BEDTIME PRN (Reason: Insomnia) 0RF levothyroxine [Levoxyl] 75 mcg Tablet 75 mcg PO DAILY 0RF carboxymethylcellulose sodium 0.5 % drops 1 drp ophthalmic-Left QID 0RF cholecalciferol (vitamin D3) 25 mcg (1,000 unit) Tablet 25 mcg PO DAILY 0RF ferrous sulfate 324 mg (65 mg iron) Tablet,Delayed Release (Dr/Ec) 324 mg PO BID 0RF torsemide 20 mg tablet 40 mg PO DAILY Qty: 120 0RF potassium citrate 10 mEq (1,080 mg) tablet extended release 20 meq PO DAILY Qty: 8 0RF atorvastatin 80 mg tablet 80 mg PO BEDTIME 0RF Discontinued doxycycline hyclate 100 mg Tablet 100 mg PO BID 0RF Rx Instructions: patient prescribed for 10 days starting 11/23/21, has taken for 2 days Discharge Orders: Discharge Order (Routine); Ordered 12/01/21 Ordered By: Chris Moe Diet: advance to usual diet Activity on Discharge: As tolerated Stand Alone Forms: Patient Portal Discharge page Care Plan Goals: Patient was admitted due to back pain, possible pneumonia: Started on IV antibiotics seems to be improving, switched to p.o. antibiotics for that. Back pain: Patient seems to have history of spinal stenosis, MRI was done and seen by neuro: Patient back pain related to spinal stenosis, patient wants to defer any surgery, currently improving with pain management, muscle relaxers and steroids-patient wants to defer IV epidural steroid injection for now and consider in later date if needed to be since his back pain and improving and ambulation is also improving. Seen by PT recommended rehab. Constipation: Patient was placed on laxative and given 1 enema and had a large bowel movement after that, monitor for constipation since patient is on pain medication oxycodone. Further management outpatient as per PCP. Health Concerns: As above. Plan of Treatment: As above. Assessment: As above.
[2021-12-01] MEDS: Rivaroxaban 20 MG TABLET PO (17:48)
== END 2021-12-01 19:00 | disposition skilled nursing facility (03) | DRG 194 ==
LOC: HO.ED 12:58 → HO.EDOVER 15:04 → HO.S3 21:37
PROVIDERS: Admitting Provider Internal Medicine; Emergency Provider Emergency Medicine; PCP Internal Medicine; Visit Provider Internal Medicine
DX: J18.9 Pneumonia, unspecified organism (principal); I50.22 Chronic systolic (congestive) heart failure; I25.10 Atherosclerotic heart disease of native coronary artery without angina pectoris; G47.33 Obstructive sleep apnea (adult) (pediatric); I48.0 Paroxysmal atrial fibrillation; E78.5 Hyperlipidemia, unspecified; G25.81 Restless legs syndrome; M48.061 Spinal stenosis, lumbar region without neurogenic claudication; K59.00 Constipation, unspecified; N28.89 Other specified disorders of kidney and ureter; Z20.822 Contact with and (suspected) exposure to COVID-19; Z95.1 Presence of aortocoronary bypass graft; Z87.442 Personal history of urinary calculi; Z87.891 Personal history of nicotine dependence; Z79.890 Hormone replacement therapy; Z79.899 Other long term (current) drug therapy
CPT/HCPCS: 36415; 71046; 72100; 72148; 74176; 80048; 81001; 83605; 83735; 84132; 85025; 87040; 87077; 87186; 87205; 87635; 96365; 96367; 96375; 96376; 97116; 97162; 97530; 99284; J0456; J0696; J1100; J2270